=== PATIENT | female | born 1930 | race Hispanic/Latino ===

== ENCOUNTER 2016-08-15 11:36 | Inpatient (IN) | payer MEDICARE, BC ==
[2016-08-15 11:55] VITALS: BMI 21.4
[2016-08-15] MEDS ORDERED: Morphine 4 mg/ml ISec IVP STA ×2 (12:01→14:07)
--- NOTE | 2016-08-15 12:04 | ED PDOC ---
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 Patient was seen by Dr. Dutta this morning, who suggested the patient come to the emergency department for further evaluation. Patient denies any fever, cough, or other complaints at this time. PMD: Dr. Dutta Time/Duration: Other (5 days) Symptom Onset: Gradual Symptom Course: Unchanged Quality: Other (sharp) Activities at Onset: Rest Context: Home Past Medical History - Provider Review Nursing Documentation Reviewed: Yes Family/Social History - Physician Review Nursing Documentation Reviewed: Yes Family/Social History: No Known Family HX Allergies/Home Meds Allergies/Adverse Reactions: Allergies No Known Allergies Allergy (Verified 08/15/16 11:56) Home Medications: Home Meds Medication Instructions Recorded Confirmed Alprazolam [Xanax] 0.25 mg PO PRN PRN 08/15/16 08/15/16 Clopidogrel [Plavix] 75 mg PO DAILY 08/15/16 08/15/16 Ferrous Sulfate [Feosol] 325 mg PO DAILY 08/15/16 08/15/16 Losartan [Cozaar] 50 mg PO DAILY 08/15/16 08/15/16 Metoprolol Succinate [Toprol XL] 25 mg PO DAILY 08/15/16 08/15/16 Pantoprazole [Protonix] 40 mg PO DAILY 08/15/16 08/15/16 Tramadol HCl [Ultram] 50 mg PO PRN PRN 08/15/16 08/15/16 Review of Systems - Physician Review All systems were reviewed & negative as marked: Yes - Review of Systems Constitutional: absent: Fevers Respiratory: SOB. absent: Cough Musculoskeletal: Back Pain Physical Exam - Physical Exam Narrative Physical Exam (Text): Constitutional: Intermittent distress secondary to pain. Head: Normocephalic. Atraumatic. Eyes: PERRL. ENT: Moist mucous membranes. Neck: Supple. Cardiovascular: Regular rate. Chest: No tenderness. Respiratory: Bibasilar rhonchi, R worse than L. GI: Soft. Nontender. Nondistended. Back: No CVA tenderness. Reproducible pain on palpation to the right thoracic back. Musculoskeletal: No tenderness or swelling of extremities. Skin: No rash. Neurologic: Alert, no focal deficit. Vital Signs Reviewed: Yes Vital Signs Temp Pulse Resp BP Pulse Ox 08/15/16 13:43 90 20 166/68 H 98 08/15/16 11:56 98 F 98 H 20 146/80 100 Temperature: Afebrile Blood Pressure: Normal Pulse: Regular Respiratory Rate: Normal Appearance: Positive for: Well-Appearing, Non-Toxic, Comfortable Pain Distress: None Mental Status: Positive for: Alert and Oriented X 3 Medical Decision Making ED Course and Treatment: 08/15/16 11:54 Impression: A 85 year old female with shortness of breath and right thoracic pain. Differential Diagnosis include but are not limited to: ACS vs. PE Plan: -- Chest X-ray -- Labs -- Morphine -- Reassess and disposition Progress Notes: 08/15/16 12:40 CBC returned at this time with WBC 20+. Patient now triggers sepsis screening criteria. VBG with lactate added. 08/15/16 13:34 CXR shows RLL pneumonia. Ordered antibiotics and IVF. 08/15/16 13:55 Lactate 1.4, no CODE SEPSIS activation. Patient also with normal blood pressure , afebrile. Dr. Dutta accepts patient to his service on telemetry. - Lab Interpretations Lab Results: 08/15/16 12:00 08/15/16 12:00 Lab Results 08/15/16 13:00: Blood Type Confirm O POSITIVE 08/15/16 12:40: pO2 40, VBG pH 7.31 L, VBG pCO2 55.0, VBG HCO3 27.7, VBG Total CO2 29.4 H, VBG O2 Sat (Calc) 75.5 H, VBG Base Excess 0.7, VBG Potassium 4.5, Glucose 137 H, Lactate 1.4, FiO2 21.0, Sodium 136.0, Chloride 104.0, Venous Blood Potassium 4.5 08/15/16 12:00: PT 12.2 H, INR 1.13 H, APTT 29.2 08/15/16 12:00: WBC 21.4 H, RBC 3.60, Hgb 10.0 L, Hct 31.3 L, MCV 86.9, MCH 27.8 , MCHC 31.9, RDW 14.9 H, Plt Count 349, MPV 10.6, Gran % 87.1 H, Lymph % (Auto) 3.4 L, Mcdonough % (Auto) 9.2 H, Eos % (Auto) 0.0 L, Baso % (Auto) 0.3, Gran # 18.63 H, Lymph # 0.7 L, Mcdonough # 2.0 H, Eos # 0.0, Baso # 0.06 08/15/16 12:00: Blood Type O POSITIVE, Antibody Screen Negative, BBK History Checked No verified bt 08/15/16 12:00: Sodium 135, Potassium 4.1, Chloride 100, Carbon Dioxide 26, Anion Gap 13, BUN 22 H, Creatinine 1.1, Est GFR ( Amer) 57, Est GFR (Non- Af Amer) 47, Random Glucose 122 H, Calcium 9.9, Total Bilirubin 0.6, AST 27, ALT 21, Alkaline Phosphatase 100, Total Creatine Kinase 22 L, Troponin I < 0.01 , NT-Pro-B Natriuret Pep 1040 H, Total Protein 7.2, Albumin 3.9, Globulin 3.4, Albumin/Globulin Ratio 1.1 I have reviewed the lab results: Yes - RAD Interpretation Radiology Orders: 08/15/16 12:01 CHEST TWO VIEWS (PA/LAT) [RAD] Stat - Medication Orders Current Medication Orders: Discontinued Medications Levofloxacin/Dextrose (Levaquin 750mg) 750 mg in 150 mls @ 100 mls/hr IVPB STAT STA Stop: 08/15/16 14:54 Cefepime HCl (Maxipime 2gm) 2 gm in 100 mls @ 100 mls/hr IVPB STAT STA PRN Reason: Protocol Stop: 08/15/16 14:24 Last Admin: 08/15/16 14:14 Dose: 100 mls/hr Sodium Chloride (Sodium Chloride 0.9%) 1,812 mls @ 3,624 mls/hr IV .Q30M STA Stop: 08/15/16 13:55 Last Admin: 08/15/16 13:45 Dose: 3,624 mls/hr Morphine Sulfate (Morphine) 4 mg IVP STAT STA Stop: 08/15/16 12:02 Last Admin: 08/15/16 12:18 Dose: 4 mg Re-Assess: HALLIE Pain Assessment Document 08/15/16 13:18 RAMIRO (Rec: 08/15/16 14:23 SZSerina [id number]) Pain Reassessment Is this a pain reassessment? Yes Sleep Is patient sleeping during reassessment? No Presence of Pain Presence of Pain Yes Description Description Intermittent Intensity of Pain at present 5 Morphine Sulfate (Morphine) 4 mg IVP STAT STA Stop: 08/15/16 14:08 Last Admin: 08/15/16 14:15 Dose: 4 mg - Scribe Statement The provider has reviewed the documentation as recorded by the [place] Provider Scribe Attestation: All medical record entries made by the Wade[place]angelica were at my direction and personally dictated by me. I have reviewed the chart and agree that the record accurately reflects my personal performance of the history, physical exam, medical decision making, and the department course for this patient. I have also personally directed, reviewed, and agree with the discharge instructions and disposition. Disposition/Present on Arrival - Present on Arrival Any Indicators Present on Arrival: No - Disposition Have Diagnosis and Disposition been Completed?: Yes Diagnosis: Pneumonia, Leukocytosis Disposition: HOSPITALIZED Disposition Time: 13:55 Patient Plan: Admission, Telemetry Condition: GUARDED
[2016-08-15 12:20] LABS: ADD MANUAL DIFF? NO
[2016-08-15 12:34] LABS: BASO # 0.06 K/mm3 (0.0-2.0); BASO % 0.3 % (0.0-3.0); GRAN # 18.63 (1.4-6.5); GRAN % 87.1 % (50.0-68.0); HEMATOCRIT 31.3 % (36.0-48.0); LYMPH # 0.7 (1.2-3.4); LYMPH % 3.4 % (22.0-35.0); MEAN CELL VOLUME 86.9 fL (80.0-105.0); MEAN CORPUSCULAR HEMOGLOBIN 27.8 pg (25.0-35.0); MEAN CORPUSCULAR HGB CONC 31.9 g/dl (31.0-37.0); MEAN PLATELET VOLUME 10.6 fl (7.0-11.0); MONO % 9.2 % (1.0-6.0); PLATELET COUNT 349 10^3/uL (120.0-450.0); RED CELL DISTRIBUTION WIDTH 14.9 % (11.5-14.5); WHITE BLOOD COUNT 21.4 10^3/ul (4.5-11.0)
[2016-08-15 12:40] LABS: ALB/GLOB RATIO 1.1 (1.1-1.8); ALKALINE PHOSPHATASE 100 U/L (38-133); ALT/SGPT 21 U/L (7-56); AST/SGOT 27 U/L (15-39); BILIRUBIN,TOTAL 0.6 mg/dL (0.2-1.3); BLOOD UREA NITROGEN 22 mg/dL (7-21); CALCIUM 9.9 mg/dL (8.4-10.5); CARBON DIOXIDE 26 mmol/L (21-33); CHLORIDE 100 mmol/L (98-107); GFR AFRICAN-AMERICAN 57; GLUCOSE,RANDOM 122 mg/dL (70-110); POTASSIUM 4.1 mmol/L (3.6-5.0); SODIUM 135 mmol/L (132-148); TOTAL PROTEIN 7.2 g/dL (5.8-8.3)
[2016-08-15 12:47] LABS: INR 1.13 (0.93-1.08); PARTIAL THROMBOPLASTIN TIME 29.2 Seconds (23.7-30.8)
[2016-08-15 12:51] LABS: TROPONIN I < 0.01 ng/mL
[2016-08-15] MEDS ORDERED: levoFLOXacin 750 mg in D5W 750 MG/150 ML BAG IVPB STA (13:25)
[2016-08-15] MEDS ORDERED: Cefepime IV 2 gm in NS 2 GM/100 ML BAG IVPB STA (13:25)
[2016-08-15] MEDS ORDERED: SODIUM CHLORIDE 0.9% IV STA (13:26)
[2016-08-15 13:49] LABS: VENOUS BLOOD GAS BASE EXCESS 0.7 mmol/L (0.0-2.0); VENOUS BLOOD PH 7.31 (7.32-7.43)
--- NOTE | 2016-08-15 13:50 | RAD ---
HISTORY: R sided pleuritic pain, dullness COMPARISON: No prior. TECHNIQUE: Chest PA and lateral FINDINGS: LUNGS: There is a patchy infiltrate at the right lung base. PLEURA: No significant pleural effusion identified. No pneumothorax apparent. CARDIOVASCULAR: Normal. OSSEOUS STRUCTURES: No significant abnormalities. VISUALIZED UPPER ABDOMEN: Normal. OTHER FINDINGS: None. IMPRESSION: Patchy infiltrate at the right lung base
[2016-08-15] MEDS ORDERED: Pneumococcal 23-Valent Vaccine IM ONE (16:38)
[2016-08-15] MEDS ORDERED: Sodium Chloride 0.9% 1,000 ML IV SCH (18:08)
[2016-08-15] MEDS ORDERED: Albuterol-Ipratrop 3 mg / 0.5 (3 ml) UD IH SCH (18:15)
--- NOTE | 2016-08-15 21:01 | CON ---
DATE: 08/15/2016 REASON FOR CONSULTATION: Right-sided thoracic pain. HISTORY OF PRESENT ILLNESS: This is an 85-year-old female who was admitted today for pneumonia, who states that she has a 3-4 day history of some right-sided pain. She says the pain got worse over the last day or so. She denies any history of falls. She denies any numbness or tingling going down th e legs. She denies any weakness. PHYSICAL EXAMINATION: On exam of the thoracic and lumbar spine, there is no gross deformity apprecia fermin. Her skin is intact. She has some very mild right lower thoracic upper lumbar paraspinal tender ness to palpation. Neurovascularly, she is grossly intact distally. She does appear to have pain in the right upper quadrant of her abdomen. Her belly is otherwise soft and nontender. DIAGNOSTIC STUDIES: There are no thoracic or lumbar films available. On a chest x-ray, no obvious r ib fractures are appreciated. IMPRESSION: Right thoracic and right upper quadrant abdominal pain. PLAN: At this point, I am going to recommend that we get x-rays of the lumbar and thoracic spine and also recommended that we are going to speak to her medical doctor about a possible further workup fo r her right upper quadrant pain. We will follow up once the x-rays are complete. Mukul Henderson MD cc: [id number] TT: 08/15/2016 21:00:26 Confirmation # [id number] Dictation # [id number] mn
[2016-08-15] MEDS: HYDROmorphone 0.5 mg/0.5 ml ISec IVP PRN (21:43)
--- NOTE | 2016-08-16 01:34 | CARD ---
APPROVED REPORT EKG Measurement Heart [id number] <Conclusion> Sinus tachycardia Possible Left atrial enlargement Left ventricular hypertrophy Nonspecific ST abnormality Abnormal ECG
[2016-08-16 03:00] VITALS: RESP 20
[2016-08-16] MEDS: HYDROmorphone 0.5 mg/0.5 ml ISec IVP PRN ×2 (03:13→08:27)
[2016-08-16] MEDS: Pantoprazole 40 mg EC Tab PO SCH (08:27)
[2016-08-16 09:25] LABS: ADD MANUAL DIFF? NO
[2016-08-16 09:27] LABS: BASO # 0.04 K/mm3 (0.0-2.0); BASO % 0.2 % (0.0-3.0); EOS # 0.1 (0.0-0.7); EOS % 0.7 % (1.5-5.0); GRAN # 15.24 (1.4-6.5); GRAN % 87.3 % (50.0-68.0); HEMATOCRIT 28.6 % (36.0-48.0); LYMPH # 0.7 (1.2-3.4); LYMPH % 4.1 % (22.0-35.0); MEAN CELL VOLUME 86.7 fL (80.0-105.0); MEAN CORPUSCULAR HEMOGLOBIN 26.7 pg (25.0-35.0); MEAN CORPUSCULAR HGB CONC 30.8 g/dl (31.0-37.0); MEAN PLATELET VOLUME 10.3 fl (7.0-11.0); MONO # 1.3 (0.1-0.6); MONO % 7.7 % (1.0-6.0); PLATELET COUNT 303 10^3/uL (120.0-450.0); RED CELL DISTRIBUTION WIDTH 15.1 % (11.5-14.5); WHITE BLOOD COUNT 17.5 10^3/ul (4.5-11.0)
--- NOTE | 2016-08-16 09:55 | HP ---
An 85-year-old white female with a recent history of a CVA with right hemiparesis. The patient had b een doing physical therapy and occupational therapy. She has a history of carotid artery disease in the past. She had an approximately 3-4 day history of cough, sputum production, low-grade fever and severe right-sided chest pain on deep inspiration. The patient came to my office, was found to have severe right chest pain with rales at the right base, was sent to the Emergency Room because of the s evere pain, was found to have a 20,000 white count, a patchy right lower lobe infiltrate consistent w ith pneumonia and pleuritis. The patient was admitted to the hospital. PHYSICAL EXAMINATION: GENERAL: Shows a well-developed, but thin white female, in severe pain. HEENT: Essentially normal limits. HEART: Regular sinus rhythm. No S3, no murmurs. CHEST: Shows rales and rhonchi at the right base. ABDOMEN: Benign. EXTREMITIES: No cyanosis, clubbing, or edema. NEUROLOGIC: Shows a heavy right hemiparesis. The patient is alert and oriented x 3. IMPRESSION: Right lower lobe pneumonia with pleuritic chest pain, history of cerebrovascular acciden t. Dylan Dutta MD cc: [id number] TT: 08/16/2016 09:54:19 en
[2016-08-16] MEDS ORDERED: Non Formulary Medication (Ferrous Sulfate [Feosol] 325 MG) PO SCH (10:00)
[2016-08-16] MEDS: Azithromycin 250 MG in Sodium Chloride 0.9% 250 ML IVPB SCH (10:19)
[2016-08-16] MEDS: Metoprolol Succinate 25 mg XL Tab PO SCH (10:27)
[2016-08-16] MEDS: cefTRIAXone 1 gm 1 GM/100 ML BAG IVPB SCH (10:28)
[2016-08-17 07:02] LABS: ADD MANUAL DIFF? NO
[2016-08-17 07:21] LABS: ALB/GLOB RATIO 0.9 (1.1-1.8); ALKALINE PHOSPHATASE 92 U/L (38-133); ALT/SGPT 27 U/L (7-56); AST/SGOT 27 U/L (15-39); BILIRUBIN,TOTAL 0.3 mg/dL (0.2-1.3); BLOOD UREA NITROGEN 17 mg/dL (7-21); CALCIUM 8.7 mg/dL (8.4-10.5); CARBON DIOXIDE 25 mmol/L (21-33); CHLORIDE 108 mmol/L (98-107); GFR AFRICAN-AMERICAN > 60; GLUCOSE,RANDOM 88 mg/dL (70-110); POTASSIUM 5.2 mmol/L (3.6-5.0); SODIUM 137 mmol/L (132-148); TOTAL PROTEIN 5.8 g/dL (5.8-8.3)
[2016-08-17 07:48] LABS: EOS # 0.4 (0.0-0.7)
[2016-08-17] MEDS: Pantoprazole 40 mg EC Tab PO SCH (08:17)
[2016-08-17 08:52] LABS: BASO # 0.05 K/mm3 (0.0-2.0); BASO % 0.4 % (0.0-3.0); EOS % 3.1 % (1.5-5.0); GRAN # 10.41 (1.4-6.5); GRAN % 81.4 % (50.0-68.0); HEMATOCRIT 27.8 % (36.0-48.0); LYMPH # 0.9 (1.2-3.4); LYMPH % 6.7 % (22.0-35.0); MEAN CELL VOLUME 86.1 fL (80.0-105.0); MEAN CORPUSCULAR HEMOGLOBIN 26.6 pg (25.0-35.0); MEAN CORPUSCULAR HGB CONC 30.9 g/dl (31.0-37.0); MEAN PLATELET VOLUME 10.5 fl (7.0-11.0); MONO # 1.1 (0.1-0.6); MONO % 8.4 % (1.0-6.0); PLATELET COUNT 304 10^3/uL (120.0-450.0); RED CELL DISTRIBUTION WIDTH 15.3 % (11.5-14.5); WHITE BLOOD COUNT 12.8 10^3/ul (4.5-11.0)
[2016-08-17] MEDS: Azithromycin 250 MG in Sodium Chloride 0.9% 250 ML IVPB SCH (09:13)
[2016-08-17 09:16] LABS: URINE BILIRUBIN NEGATIVE (NEGATIVE); URINE BLOOD TRACE-INTACT (NEGATIVE); URINE GLUCOSE (UA) NEGATIVE (NEGATIVE); URINE KETONE NEGATIVE (NEGATIVE); URINE LEUKOCYTE ESTERASE TRACE Leu/uL (NEGATIVE); URINE PROTEIN TRACE mg/dL (<30 mg/dL); URINE UROBILINOGEN 0.2 E.U./dL (<1 E.U./dL)
[2016-08-17] MEDS: Metoprolol Succinate 25 mg XL Tab PO SCH (09:16)
[2016-08-17] MEDS: cefTRIAXone 1 gm 1 GM/100 ML BAG IVPB SCH (09:17)
[2016-08-17] MEDS ORDERED: Iohexol 350 MG/100 ML VIAL ONE (09:18)
[2016-08-17 09:27] LABS: URINE APPEARANCE CLEAR (CLEAR); URINE COLOR YELLOW (YELLOW)
--- NOTE | 2016-08-17 09:34 | PN ---
DATE: 08/17/2016 An 85-year-old white female admitted with severe right pleuritic chest pain, right lower lobe infiltr ate. Also the patient has dropped her hemoglobin from 10 to 8.6. She is afebrile. Vital signs are stable. She is receiving morphine and ____. ____ will be held because of the drop in hemoglobin. S tool occult blood will be done. B12, folic acid, iron, TIBC will be redone. Repeat CBC. The patien t is on IV antibiotics. She does have anterior and posterior rales. She will be sent down for a CT of the chest to rule out pleuritis and rule out lymphangitic involvement. PHYSICAL EXAMINATION: VITAL SIGNS: Stable. GENERAL: The patient had a rough night, but is more comfortable this morning, found sleeping in her bed, tolerating her diet well. HEART: Regular sinus rhythm. IMPRESSION: Pneumonia, pleuritis, rule out other etiologies, drop in hemoglobin. Rule out occult bl ood loss versus hemolysis versus ____. Dylan Dutta MD cc: [id number] TT: 08/17/2016 09:33:20 Confirmation # [id number] Dictation # [id number] jn
[2016-08-17 09:41] LABS: URINE BACTERIA FEW (NEG)
[2016-08-17 11:05] LABS: IRON < 10 ug/dL (45-180)
--- NOTE | 2016-08-17 12:12 | CT ---
PROCEDURE: HISTORY: pleuritis COMPARISON: None TECHNIQUE: FINDINGS: There is a small to moderate right pleural effusion. Fair are diffuse centrilobular emphysematous changes with irregular parenchymal opacities along the right upper lobe possibly representing rounded atelectasis and/or pneumonia. Similar changes are noted at the right base. There is fullness of the right infrahilar structures which may reflect adenopathy versus vascular structures. The proximal tracheobronchial tree is patent. There is no significant mediastinal lymphadenopathy. Extensive atherosclerotic disease of the aorta is observed. The proximal tracheobronchial tree is patent. Six there is no pericardial effusion. The upper abdomen is grossly unremarkable. IMPRESSION: Right pleural effusion with patchy subpleural opacities possibly representing round atelectasis and/or pneumonia in the right upper lobe and right lower lobe.
[2016-08-17] MEDS ORDERED: Albuterol-Ipratrop 3 mg / 0.5 (3 ml) UD IH PRN (14:43)
[2016-08-17] MEDS ORDERED: guaiFENesin DM 100 mg-10 mg/5 ml UD PO PRN (14:44)
--- NOTE | 2016-08-17 15:50 | CON ---
DATE: 08/17/2016 REQUESTING PHYSICIAN: Dr. Dutta CHIEF COMPLAINT: The patient presented with right-sided pleuritic chest pain, shortness of breath fo r about 5 days prior to coming to Dr. Dutta's office. HISTORY OF PRESENT ILLNESS: The patient is an 85-year-old female with a history of CVA, anemia, hype rtension, GERD, anxiety that presented to Dr. Dutta's office with complaints of pleuritic chest p ain on the right side and shortness of breath with weakness over about 5 days. The patient, in the E R, was noted to have right-sided pneumonia and CAT scan revealed right upper lobe, right lower lobe p neumonia with right-sided pleural effusion. She also has some mediastinal lymphadenopathy. The sommer ent at this time is on O2 via nasal cannula. Complaints of pleuritic chest pain on the right with mo vement or cough and states that she had a CVA and the right side is still weak and since that CVA, sh e has had some discomfort on that side. She has no complaints and no recent history of upper respira tory tract infection, no history of asthma, bronchitis or pneumonia in the past. She has no complain ts of shortness of breath at this time. No increased cough or congestion. PAST MEDICAL HISTORY: As above. ALLERGIES: She has no known allergies. CURRENT MEDICATIONS: Can be evaluated as per the nurse's intake form. SOCIAL HISTORY: No history of smoking or ETOH abuse. FAMILY HISTORY: Noncontributory. REVIEW OF SYSTEMS: CONSTITUTIONAL: All negative. HEENT: All negative. CARDIOVASCULAR: The patient does have the chest pain, but it is pleuritic on the right. RESPIRATORY: She had some shortness of breath, occasional cough. No wheezing or congestion. GASTROINTESTINAL: All negative. GENITOURINARY: All negative. MUSCULOSKELETAL: All negative except for back pain. NEUROPSYCHIATRIC: All negative. HEMATOLOGIC: All negative. IMMUNOLOGIC: All negative. ENDOCRINE: All negative. INTEGRITY: All negative. PHYSICAL EXAMINATION: VITAL SIGNS: Her temperature is 98.6, her pulse is 81, respirations are 90, and BP is 132/70. SKIN: Warm and dry. HEAD: Atraumatic, normocephalic. EYES: Reactive to light. EARS, NOSE AND THROAT: Seem to be within normal limits. NECK: Supple, no JVD, no thyroid enlargement, no lymph nodes. HEART: Has a regular rate and rhythm. Normal S1, S2. LUNGS: Reveal mild decreased breath sounds at the right base with occasional rhonchi. ABDOMEN: Soft, nontender, normal bowel sounds. No organomegaly noted. GENITALIA AND RECTAL: Deferred. MUSCULOSKELETAL: No joint deformities. EXTREMITIES: Reveal no significant edema in the lower extremities. NEUROLOGIC: The patient has weakness in the right side upper and lower extremity. LABORATORIES: Reveal a white count of 12.8, hemoglobin of 8.6, hematocrit 27.8 with platelets of 304 ,000. Her sodium is 137, potassium 5.2, chloride 108, CO2 of 25 with a BUN of 17, creatinine of 0.8, glucose of 88 and her BNP is 2000. As far as her CT scan of the chest, it reveals that there is a small to moderate right-sided pleural effusion and patchy subpleural opacities, possibly representing a round atelectasis and/or pneumonia in the right upper and right lower lobes. IMPRESSION: This patient has a right upper lobe, right lower lobe pneumonia. She has a right-sided pleural effusion as well. She has a history of chronic obstructive pulmonary disease as well as hype rtension, gastroesophageal reflux disease as well as anxiety. The patient has a history of cerebrova scular accident with right-sided weakness and is noted at this time to have anemia as well as pleurit ic chest pain. PLAN: We will continue with aggressive pulmonary toilet. The patient is on O2 via nasal cannula and O2 saturations are 97%. She is getting Dilaudid for pain meds and is on Plavix as well. The patien t is getting Zithromax and Rocephin as an antibiotic. I will start Robitussin for cough p.r.n. and b ronchodilators of DuoNeb. We will follow her chest x-ray and continue with aggressive pulmonary toil et and follow closely and treat aggressively along with the other consultants and the primary care do ctor. Braden Calvin MD cc: [id number] TT: 08/17/2016 15:50:08 Confirmation # [id number] Dictation # [id number] en
[2016-08-17] MEDS: HYDROmorphone 0.5 mg/0.5 ml ISec IVP PRN ×2 (18:26→23:11)
[2016-08-18] MEDS: HYDROmorphone 0.5 mg/0.5 ml ISec IVP PRN ×2 (02:21→12:52)
[2016-08-18 07:52] VITALS: TEMP 98.8; O2SAT 97
[2016-08-18 08:12] LABS: ADD MANUAL DIFF? NO
[2016-08-18 08:18] LABS: BASO # 0.06 K/mm3 (0.0-2.0); BASO % 0.5 % (0.0-3.0); EOS # 0.5 (0.0-0.7); EOS % 3.6 % (1.5-5.0); GRAN # 11.08 (1.4-6.5); HEMATOCRIT 28.8 % (36.0-48.0); LYMPH # 0.6 (1.2-3.4); LYMPH % 4.3 % (22.0-35.0); MEAN CELL VOLUME 86.2 fL (80.0-105.0); MEAN CORPUSCULAR HEMOGLOBIN 26.3 pg (25.0-35.0); MEAN CORPUSCULAR HGB CONC 30.6 g/dl (31.0-37.0); MEAN PLATELET VOLUME 10.4 fl (7.0-11.0); MONO # 0.9 (0.1-0.6); MONO % 6.6 % (1.0-6.0); PLATELET COUNT 361 10^3/uL (120.0-450.0); RED CELL DISTRIBUTION WIDTH 15.6 % (11.5-14.5)
[2016-08-18] MEDS: Pantoprazole 40 mg EC Tab PO SCH (08:30)
[2016-08-18 08:32] LABS: ALKALINE PHOSPHATASE 100 U/L (38-133); ALT/SGPT 27 U/L (7-56); AST/SGOT 23 U/L (15-39); BILIRUBIN,TOTAL 0.3 mg/dL (0.2-1.3); BLOOD UREA NITROGEN 20 mg/dL (7-21); CALCIUM 9.1 mg/dL (8.4-10.5); CARBON DIOXIDE 28 mmol/L (21-33); CHLORIDE 107 mmol/L (98-107); GFR AFRICAN-AMERICAN > 60; GLUCOSE,RANDOM 97 mg/dL (70-110); POTASSIUM 4.7 mmol/L (3.6-5.0); SODIUM 140 mmol/L (132-148)
[2016-08-18] MEDS: cefTRIAXone 1 gm 1 GM/100 ML BAG IVPB SCH (09:34)
[2016-08-18] MEDS: Metoprolol Succinate 25 mg XL Tab PO SCH (09:34)
[2016-08-18] MEDS: Azithromycin 250 MG in Sodium Chloride 0.9% 250 ML IVPB SCH (09:35)
--- NOTE | 2016-08-18 10:01 | PN ---
DATE: 08/18/2016 An 85-year-old white female status post CVA. Admitted to the hospital with right pleuritic chest west n, was found to have right lower lobe pneumonia with right pleural effusion and pleuritis. The patie nt recently had a CAT scan and also laboratory data had been . Her hemoglobin had dropped to 8. 6. It is up to 8.8. She does have an elevated BNP of 2000. She is off IV diuretics. She is on aft erload reduction and beta lottie therapy. She is on Plavix because of her history of recent CVA. S he is afebrile today. Vital signs are stable. She is less painful. We had taken her off nons teroidal anti-inflammatories because of the drop in her hemoglobin. She is on morphine and occasiona l doses of Toradol p.r.n. PHYSICAL EXAMINATION: CHEST: Shows decreased anterior rales. She still has decreased breath sounds and rhonchi at the rig ht base. VITAL SIGNS: She is afebrile. Vital signs are stable. PLAN: To continue pain medication, IV antibiotics, bronchodilators and p.r.n. Toradol if needed. Dylan Dutta MD cc: [id number] TT: 08/18/2016 10:01:22 Confirmation # [id number] Dictation # [id number] en
[2016-08-18] MEDS ORDERED: Metoprolol Succinate 25 mg XL Tab PO STA (17:05)
[2016-08-18 17:34] VITALS: BP 186/77; PULSE 72
--- NOTE | 2016-08-18 19:10 | CON ---
DATE: 08/18/2016 LOG RIDER NOTE SUBJECTIVE: The patient is resting in bed, lying flat with room air and no complaints of increased s hortness of breath. Still has some pleuritic right-sided chest pain, but it has improved greatly. N o fever, chills. No nausea, vomiting, no diarrhea, no abdominal pain. PHYSICAL EXAMINATION: VITAL SIGNS: Her temperature is 98.8, pulse is 95, respirations are 20, and BP is 141/82. SKIN: Warm and dry. HEAD: Atraumatic, normocephalic. EYES: Reactive to light. EARS, NOSE AND THROAT: Seem to be within normal limits. NECK: Supple, no JVD, no thyroid enlargement, no lymph nodes. HEART: Has regular rate and rhythm. Normal S1, S2. LUNGS: Reveal mild decreased breath sounds at the bases. ABDOMEN: Soft, nontender, normal bowel sounds. No organomegaly noted. GENITALIA AND RECTAL: Deferred. MUSCULOSKELETAL: No joint deformities. EXTREMITIES: Reveal trace lower extremity edema. NEUROLOGIC: She seemed to be grossly intact. LABORATORY DATA: Her white count is 13.0, hemoglobin is 8.8, hematocrit 28.8 with platelets of 361,0 00. Her sodium is 140, potassium 4.7, her chloride 107, CO2 of 28, anion gap is 10, and her glucose is 97. IMPRESSION: This patient has a right upper lobe and right lower lobe pneumonia. She has a right-dorene ed pleuritic chest pain as well. She has a history of chronic obstructive pulmonary disease, hyperte nsion, gastrointestinal reflux. The patient also has had a cerebrovascular accident in the past with right-sided weakness and has anemia. PLAN: We will continue with aggressive pulmonary toilet, continue with O2 via nasal cannula and foll ow the saturations. We will start Plavix as well and Zithromax along as Rocephin for antibiotics. T he patient is on Robitussin-DM and she has bronchiectasis and bronchitis. Braden Calvin MD cc: [id number] TT: 08/18/2016 19:09:00 Confirmation # [id number] Dictation # [id number] peterson
[2016-08-19] MEDS ORDERED: Metoprolol Succinate 50 mg XL Tab PO SCH (10:00)
--- NOTE | 2016-08-19 10:31 | DS ---
The patient discharged on 08/18/2016. She was admitted with severe right pleuritic chest pain, found t o have right lower lobe pneumonia. The patient has a history of CVA and hypertension in the past, hi story of peripheral vascular disease and carotid stenosis in the past. The patient was treated with IV antibiotics and pain medication and some anti-inflammatory. She was also treated for hypertension . Eventually, the patient started some physical therapy and occupational therapy, was transferred to TCU for continued IV antibiotics and physical therapy. FINAL DISCHARGE DIAGNOSES: Right lower lobe pneumonia, parapneumonic effusion and right pleuritis, h ypertension, coronary artery disease, history of cerebrovascular accident and history of carotid sonny ry stenosis. Dylan Dutta MD cc: [id number] TT: 08/19/2016 10:30:48 ulysses
== END 2016-08-18 19:23 | DRG 190 ==
LOC: ED 11:36 → ERH 14:09 → 2RNO 18:06 → 5RNO 08-16 18:02
PROVIDERS: ADMIT Internal Medicine; ATTEND Internal Medicine
DX: J44.0 Chronic obstructive pulmonary disease with (acute) lower respiratory infection (principal); J18.9 Pneumonia, unspecified organism; J90 Pleural effusion, not elsewhere classified; I69.351 Hemiplegia and hemiparesis following cerebral infarction affecting right dominant side; D64.9 Anemia, unspecified; I25.10 Atherosclerotic heart disease of native coronary artery without angina pectoris; I10 Essential (primary) hypertension; K21.9 Gastro-esophageal reflux disease without esophagitis; F41.9 Anxiety disorder, unspecified

== ENCOUNTER 2016-08-18 19:23 | Inpatient (IN) | payer OTHER, BC ==
[2016-08-18 19:49] VITALS: BMI 20.3
[2016-08-18] MEDS ORDERED: guaiFENesin DM 100 mg-10 mg/5 ml UD PO PRN (19:54)
[2016-08-18] MEDS ORDERED: Albuterol-Ipratrop 3 mg / 0.5 (3 ml) UD IH PRN (19:54)
[2016-08-18] MEDS: HYDROmorphone 0.5 mg/0.5 ml ISec IVP PRN (23:37)
[2016-08-19] MEDS: cefTRIAXone 1 gm 1 GM/100 ML BAG IVPB SCH (05:19)
[2016-08-19] MEDS ORDERED: Pantoprazole 40 mg EC Tab PO SCH (06:00)
[2016-08-19] MEDS: Pantoprazole 40 mg EC Tab PO SCH (06:05)
[2016-08-19] MEDS: Azithromycin 250 MG in Sodium Chloride 0.9% 250 ML IVPB SCH (06:06)
[2016-08-19] MEDS ORDERED: Metoprolol Succinate 25 mg XL Tab PO SCH (10:00)
[2016-08-19] MEDS ORDERED: Metoprolol Succinate 50 mg XL Tab PO SCH (10:00)
[2016-08-19] MEDS ORDERED: FERROUS SULFATE 324 MG PO SCH (10:00)
--- NOTE | 2016-08-19 10:13 | PN ---
DATE: 08/19/2016 An 85-year-old white female admitted to the hospital with pleuritis, hypertension, history of CVA, ri ght lower lobe pneumonia, pleuritic chest pain. The patient is doing well. Vital signs are stable. She continues to have some discomfort. She still has rales anterior and posterior at the right base . She is using less pain medication. Plan is to continue IV antibiotics, continue pain medication a nd antiinflammatories and to repeat her x-ray in the morning. Dylan Dutta MD cc: [id number] TT: 08/19/2016 10:12:19 Confirmation # [id number] Dictation # [id number] ulysses
[2016-08-19] MEDS: Naproxen 550 mg Tab PO SCH (18:47)
[2016-08-19] MEDS: HYDROmorphone 0.5 mg/0.5 ml ISec IVP PRN (22:04)
[2016-08-20] MEDS: Metoprolol Succinate 50 mg XL Tab PO SCH ×2 (05:29→09:27)
[2016-08-20] MEDS: Pantoprazole 40 mg EC Tab PO SCH (05:34)
[2016-08-20] MEDS: cefTRIAXone 1 gm 1 GM/100 ML BAG IVPB SCH (08:00)
[2016-08-20] MEDS: Azithromycin 250 MG in Sodium Chloride 0.9% 250 ML IVPB SCH (08:00)
--- NOTE | 2016-08-20 10:15 | PN ---
DATE: 08/20/2016 SUBJECTIVE: The patient is resting in bed, states that she is slowly improving with the respiratory status. She is comfortable with O2 via nasal cannula at 2 liters and no increased cough or congestio n. The patient states that she still has some mild chest pain on the right side when she moves or ta kes a deep breath, but that pain is improving. No fever or chills. No nausea or vomiting. No abdom inal pain. No diarrhea. PHYSICAL EXAMINATION: VITAL SIGNS: Stable. HEENT: Within normal limits. LUNGS: Reveal mild decreased breath sounds at the right base. HEART: Has a regular rate and rhythm. Normal S1, S2. ABDOMEN: Soft, nontender, normal bowel sounds. GENITALIA AND RECTAL: Deferred. MUSCULOSKELETAL: No joint deformities. EXTREMITIES: Reveal trace lower extremity edema. NEUROLOGIC: She has weakness on the right side. IMPRESSION: The patient has right lower lobe pneumonia with pleuritic chest pain, history of cerebro vascular accident and right-sided weakness. PLAN: We will continue with O2 via nasal cannula. Continue with aggressive pulmonary toilet. The p atient is on IV antibiotics as well as bronchodilators and anti-inflammatories, and we will follow up with a repeat chest x-ray in the morning. Braden Calvin MD cc: [id number] TT: 08/20/2016 10:15:07 Confirmation # [id number] Dictation # [id number] cristhian
--- NOTE | 2016-08-20 10:25 | PN ---
DATE: 08/20/2016 The patient is an 85-year-old female with history of CVA, history of peripheral vascular disease, cor onary artery disease, admitted to the hospital with right pleuritic chest pain, right lower lobe pneu monia, pleural effusion. The patient is improving steadily, does have hypertension. Blood pressure is better controlled at _ ___. The patient is on IV antibiotics, and nonsteroidal anti-inflammatories. The case was discu ssed with Dr. Calvin this morning. She will have a repeat chest x-ray to rule out further fluid to rule out the need for a possible thoracentesis. However, as along as the patient is improving, we will c ontinue physical therapy and occupational therapy, IV antibiotics, and nonsteroidal anti-inflammatori es. Dylan Dutta MD cc: [id number] TT: 08/20/2016 10:25:18 Confirmation # [id number] Dictation # [id number] jn
[2016-08-20] MEDS: Naproxen 550 mg Tab PO SCH (11:00)
--- NOTE | 2016-08-20 11:11 | CP.PCM.PN ---
Subjective - Date & Time of Evaluation Date of Evaluation: 08/20/16 Time of Evaluation: 11:10 - Subjective Subjective: pt needs angiocath insertion. Objective - Vital Signs/Intake and Output Vital Signs (last 24 hours): Temp Pulse Resp BP Pulse Ox 98.6 F 86 20 179/71 H 97 08/19/16 09:52 08/20/16 09:23 08/19/16 09:52 08/20/16 09:23 08/19/16 09:52 - Medications Medications: Current Medications Albuterol/Ipratropium (Duoneb 3 Mg/0.5 Mg (3 Ml) Ud) 3 ml IH [id number] PRN PRN Reason: Shortness of Breath Alprazolam (Xanax) 0.25 mg PO BID PRN; Protocol PRN Reason: Anxiety Stop: 08/25/16 19:50 Clopidogrel Bisulfate (Plavix) 75 mg PO DAILY [facility] Last Admin: 08/20/16 09:24 Dose: 75 mg Ferrous Sulfate (Feosol) 324 mg PO DAILY [facility] Last Admin: 08/20/16 09:24 Dose: 324 mg Guaifenesin/Dextromethorphan (Robitussin Dm) 5 ml PO Q4H PRN PRN Reason: Cough Hydromorphone HCl (Dilaudid) 0.5 mg IVP Q4H PRN PRN Reason: severe pain 8-10 Last Admin: 08/19/16 22:04 Dose: 0.5 mg Ceftriaxone Sodium (Rocephin 1 Gram Ivpb) 1 gm in 100 mls @ 100 mls/hr IVPB 0600 [facility] PRN Reason: Protocol Last Admin: 08/20/16 08:00 Dose: 100 mls/hr Azithromycin 250 mg/ Sodium (Chloride) 250 mls @ 167 mls/hr IVPB 0630 [facility] PRN Reason: Protocol Last Admin: 08/20/16 08:00 Dose: 167 mls/hr Losartan Potassium (Cozaar) 50 mg PO BID [facility] Last Admin: 08/20/16 09:23 Dose: 50 mg Metoprolol Succinate (Toprol Xl) 50 mg PO BRK [facility] Last Admin: 08/20/16 09:27 Dose: Not Given Naproxen (Anaprox Ds) 550 mg PO BID [facility] Last Admin: 08/19/16 18:47 Dose: Not Given Pantoprazole Sodium (Protonix Ec Tab) 40 mg PO 0600 [facility] Last Admin: 08/20/16 05:34 Dose: 40 mg Assessment and Plan - Assessment and Plan (Free Text) Assessment: 20 guage angiocath inserted in rt ankle area.
[2016-08-20] MEDS: HYDROmorphone 0.5 mg/0.5 ml ISec IVP PRN ×2 (15:12→19:57)
[2016-08-21] MEDS: HYDROmorphone 0.5 mg/0.5 ml ISec IVP PRN ×2 (00:29→05:47)
[2016-08-21] MEDS: Pantoprazole 40 mg EC Tab PO SCH (05:49)
[2016-08-21] MEDS: Azithromycin 250 MG in Sodium Chloride 0.9% 250 ML IVPB SCH (05:52)
[2016-08-21] MEDS: cefTRIAXone 1 gm 1 GM/100 ML BAG IVPB SCH (05:52)
[2016-08-21] MEDS: Metoprolol Succinate 50 mg XL Tab PO SCH (08:29)
--- NOTE | 2016-08-21 09:46 | PN ---
DATE: 08/21/2016 An 85-year-old white female admitted to the hospital with right pleuritic chest pain, evidence of pne umonia. The patient had a repeat CT yesterday to look at the progress of her pleural effusion and pn eumonia. She was found on CT to have a pulmonary embolism detected by Dr. Wayne Sheppard ____ started o ff Plavix, which she had been on, and started on Eliquis 5 mg b.i.d. The patient ____ seems to be unchanged today. She still has some pleuritic chest pain. She still mtz s some anterior and posterior rales, but decreased. PHYSICAL EXAMINATION: VITAL SIGNS: She is afebrile. Vital signs are stable. Blood pressure is 148/70. Pulse is 81. Tem perature is 98.6. PLAN: Is to continue her antibiotics and continue her blood pressure medication and her apixaban. Case was discussed with the sister as far as discharge home some time during this week. Dylan Dutta MD cc: [phone] TT: 08/21/2016 09:45:48 Confirmation # [id number] Dictation # [id number] jn
--- NOTE | 2016-08-21 20:36 | PN ---
DATE: 08/21/2016 SUBJECTIVE: The patient is resting in bed with O2 via nasal cannula, continues to state that when bryan dominguez exerts herself when she is getting up and walking around, she does get more short of breath going b ack and forth to the bathroom. The patient also states that she has lost her appetite and did not ea t very much today, but she promises to eat some of the food left over from her dinner later. She had an episode of vomiting earlier today. No abdominal pain. No fever, chills, no diarrhea and no ches t pain. The patient has no significant cough or wheezing. No significant congestion. PHYSICAL EXAMINATION: VITAL SIGNS: She has a temperature of 98.6, her pulse is 92, respirations are 20, and BP is 156/68, O2 sat is 97% on room air. HEENT: Head is atraumatic, normocephalic. Eyes reactive to light. Ears, nose and throat seemed to be within normal limits. NECK: Supple. No JVD, no thyroid enlargement, no lymph nodes. CARDIOVASCULAR: Heart has a regular rate and rhythm. Normal S1, S2. LUNGS: Reveal good breath sounds bilaterally. ABDOMEN: Soft. Normal bowel sounds. No organomegaly noted. GENITALIA AND RECTAL: Deferred. MUSCULOSKELETAL: No joint deformities. EXTREMITIES: Reveal trace lower extremity edema. NEUROLOGIC: She does have weakness on the right side. LABORATORY DATA: As far as CT scan of the chest, it reveals that there is a pulmonary embolus. IMPRESSION: The patient has saddle pulmonary embolus, but official report is not on the chart as of yet. The patient also is noted to have a right lower lobe pneumonia with pleuritic chest pain and hi story of cerebrovascular accident and right-sided weakness. PLAN: We will continue with O2 via nasal cannula. Continue with aggressive pulmonary toilet. The p atient is on IV antibiotics and bronchodilators as well as anti-inflammatories. She has been started on Eliquis and we will get Dopplers of the lower extremities. We will assess and consider the need for IVC filter. I will continue to treat aggressively along with the other consultants and the [facility] doctor. Braden Calvin MD cc: [id number] TT: 08/21/2016 20:35:44 Confirmation # [id number] Dictation # [id number] jn
[2016-08-22] MEDS: Pantoprazole 40 mg EC Tab PO SCH (05:22)
[2016-08-22 07:37] VITALS: RESP 18; O2SAT 100
[2016-08-22] MEDS: Metoprolol Succinate 50 mg XL Tab PO SCH (08:33)
--- NOTE | 2016-08-22 09:59 | CP.PCM.CON ---
<Migdalia Turcios - Last Filed: 08/22/16 13:09> History of Present Illness - History of Present Illness History of Present Illness: Surgery: Dr. 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 Patient is aware of pulmonary embolism as well as DVT in legs bilaterally. Patient currently only complains of coughing and sneezing which is new. She does report some right sided chest pain with coughing. She states the cough is dry, nonproductive. During interview patient continues to request a consult with a Dr. Livingston, who she has seen in the past for GI bleeding. She denies any pain to the lower extremities of swelling of her legs. Per nursing, patient remains on 2Lt NC and has been saturating 100% w/o evidence of respiratory distress. PMH: CVA, GI bleed, PVD s/p stent on the Left, HTN, HLD, Pneumonia PSH: endovascular stent placement LLE, endoscopy 2/2 GI bleed w/ clip placement Social: lives with sister who is primary critical care nurse Review of Systems - Constitutional Constitutional: absent: Anorexia, Chills, Fever - EENT Eyes: absent: Change in Vision Ears: absent: Dizziness Nose/Mouth/Throat: Nasal Congestion - Cardiovascular Cardiovascular: absent: Diaphoresis, Dyspnea - Respiratory Respiratory: Cough, Pain with Coughing. absent: Wheezing - Gastrointestinal Gastrointestinal: absent: Abdominal Pain, Constipation - Neurological Neurological: absent: Dizziness - Psychiatric Psychiatric: Anxiety. absent: Depression - Endocrine Endocrine: absent: Polydipsia, Polyphagia - Hematologic/Lymphatic Hematologic: absent: Easy Bleeding, Easy Bruising Past Patient History - Past Social History Smoking Status: Never Smoked - CARDIAC Hx Hypertension: Yes - PULMONARY Hx Respiratory Disorders: No - NEUROLOGICAL HX Cerebrovascular Accident: Yes (R sided weakness) - HEENT Hx HEENT Problems: Yes ([place] uses b/l hearing aids which are home) Hx Cataracts: Yes (b/l sx) - HEMATOLOGICAL/ONCOLOGICAL Hx Anemia: Yes Other/Comment: left outer calf 0.7cm x 0.6cm dry brown lesion precancerous as per pt bx done - INTEGUMENTARY Hx Basil Cell: (uncertain) Other/Comment: left outer calf 0.7cm x 0.6cm dry brown lesion, was bx'd as per pt and is precancerous, skin tags and age spots to back, left upper arm light and dark red area of skin 1cm x 1cm pt stated "it comes and goes". - MUSCULOSKELETAL/RHEUMATOLOGICAL Hx Falls: No - GASTROINTESTINAL Hx Gastrointestinal Disorders: Yes Hx Gastroesophageal Reflux: Yes - GENITOURINARY/GYNECOLOGICAL Hx Incontinence: Yes - PSYCHIATRIC Hx Psychophysiologic Disorder: Yes Hx Anxiety: Yes - SURGICAL HISTORY Hx Surgeries: Yes - ANESTHESIA Hx Anesthesia: Yes Hx Anesthesia Reactions: No Hx Malignant Hyperthermia: No Meds Allergies/Adverse Reactions: Allergies Allergy/AdvReac Type Severity Reaction Status Date / Time No Known Allergies Allergy Verified 08/18/16 19:48 - Medications Medications: Current Medications Albuterol/Ipratropium (Duoneb 3 Mg/0.5 Mg (3 Ml) Ud) 3 ml IH [id number] PRN PRN Reason: Shortness of Breath Alprazolam (Xanax) 0.25 mg PO BID PRN; Protocol PRN Reason: Anxiety Stop: 08/25/16 19:50 Last Admin: 08/22/16 01:12 Dose: 0.25 mg Apixaban (Eliquis) 5 mg PO BID [facility] PRN Reason: Protocol Azithromycin (Zithromax) 250 mg PO DAILY [facility] PRN Reason: Protocol Last Admin: 08/21/16 10:47 Dose: 250 mg Guaifenesin/Dextromethorphan (Robitussin Dm) 5 ml PO Q4H PRN PRN Reason: Cough Losartan Potassium (Cozaar) 50 mg PO BID [facility] Last Admin: 08/21/16 17:53 Dose: 50 mg Metoprolol Succinate (Toprol Xl) 50 mg PO BRK [facility] Last Admin: 08/22/16 08:33 Dose: 50 mg Ondansetron HCl (Zofran Tab) 4 mg PO Q8H PRN PRN Reason: Nausea/Vomiting Pantoprazole Sodium (Protonix Ec Tab) 40 mg PO 0600 [facility] Last Admin: 08/22/16 05:22 Dose: 40 mg Physical Exam - Constitutional Appears: Non-toxic, No Acute Distress, Chronically Ill - Head Exam Head Exam: ATRAUMATIC, NORMOCEPHALIC - Eye Exam Eye Exam: EOMI - ENT Exam ENT Exam: Mucous Membranes Moist - Respiratory Exam Respiratory Exam: Rhonchi, NORMAL BREATHING PATTERN. absent: Accessory Muscle Use, Decreased Breath Sounds, Respiratory Distress - Cardiovascular Exam Cardiovascular Exam: REGULAR RHYTHM. absent: Tachycardia - Extremities Exam Extremities exam: Negative for: tenderness - Neurological Exam Neurological exam: Alert - Psychiatric Exam Psychiatric exam: Agitated - Skin Skin Exam: Dry, Normal Color, Warm Results - Vital Signs Recent Vital Signs: Last Vital Signs Temp 97.9 F 08/22/16 06:00 Pulse 84 08/22/16 08:33 Resp 18 08/22/16 06:00 BP 159/66 H 08/22/16 08:33 Pulse Ox 100 08/22/16 06:00 Assessment & Plan - Assessment and Plan (Free Text) Assessment: 85 y/o female w/ saddle PE and DVT B/L Plan: -needs echo -2/2 prior GI bleed will refrain from heparin drip, cont elliquis per primary -f/u LE u/s -most likely need IVC filter -monitor for acute respiratory worsening -further recs per Dr. Deleon AKite PGY1 <Elio Deleon - Last Filed: 08/23/16 08:00> Meds - Medications Medications: Current Medications Albuterol/Ipratropium (Duoneb 3 Mg/0.5 Mg (3 Ml) Ud) 3 ml IH [id number] PRN PRN Reason: Shortness of Breath Alprazolam (Xanax) 0.25 mg PO BID PRN; Protocol PRN Reason: Anxiety Stop: 08/25/16 19:50 Last Admin: 08/22/16 23:10 Dose: 0.25 mg Apixaban (Eliquis) 5 mg PO BID [facility] PRN Reason: Protocol Last Admin: 08/22/16 17:44 Dose: 5 mg Azithromycin (Zithromax) 250 mg PO DAILY [facility] PRN Reason: Protocol Last Admin: 08/22/16 11:12 Dose: 250 mg Guaifenesin/Dextromethorphan (Robitussin Dm) 5 ml PO Q4H PRN PRN Reason: Cough Losartan Potassium (Cozaar) 50 mg PO BID [facility] Last Admin: 08/22/16 11:11 Dose: 50 mg Metoprolol Succinate (Toprol Xl) 50 mg PO BRK [facility] Last Admin: 08/22/16 08:33 Dose: 50 mg Ondansetron HCl (Zofran Tab) 4 mg PO Q8H PRN PRN Reason: Nausea/Vomiting Pantoprazole Sodium (Protonix Ec Tab) 40 mg PO 0600 [facility] Last Admin: 08/23/16 06:00 Dose: 40 mg Results - Vital Signs Recent Vital Signs: Last Vital Signs Temp 98.1 F 08/22/16 10:00 Pulse 82 08/23/16 05:06 Resp 18 08/22/16 10:00 BP 150/71 08/23/16 05:06 Pulse Ox 100 08/22/16 10:00 - Labs Labs: Laboratory Results - last 24 hr 08/23/16 04:44 POC Glucose (mg/dL) 120 H Assessment & Plan - Assessment and Plan (Free Text) Plan: Patient seen and examined by me. I agree with patients assessment and plan as per resident's note except will continue on Elliquis for now and hold off with IVC filter placement unless patient can not tolerate anticoagulation. - Date & Time Date: 08/22/16 Time: 16:00
[2016-08-22 11:21] VITALS: BP 150/71; PULSE 82; TEMP 98.1
--- NOTE | 2016-08-22 13:53 | US ---
HISTORY: Pulmonary embolus. Evaluate for DVT. PHYSICIAN(S): Wayne Sheppard MD. TECHNIQUE: Duplex sonography and color-flow Doppler with graded compression were used to evaluate the deep venous systems of both lower extremities. FINDINGS: There is extensive, acute, occlusive thrombus in the femoral veins, popliteal veins, and visualized tibial veins bilaterally. The common femoral veins are patent and compressible bilaterally. IMPRESSION: Extensive bilateral acute DVT in the femoral veins, popliteal veins, and visualized tibial veins bilaterally.
--- NOTE | 2016-08-22 13:54 | US ---
PROCEDURE: 1. Duplex ultrasound of the abdominal aorta. HISTORY: Abdominal aortic aneurysm. PHYSICIAN(S): Wayne Sheppard MD. FINDINGS: There is diffuse atherosclerotic disease of the visualized abdominal aorta. There is no sonographic evidence of abdominal aortic aneurysm. The visualized abdominal aorta measures 2.1 cm in greatest transverse dimension. The visualized common iliac arteries are normal in caliber. IMPRESSION: 1. No sonographic evidence of an abdominal aortic aneurysm. 2. Diffuse atherosclerotic disease of the visualized abdominal aorta
--- NOTE | 2016-08-22 14:50 | CON ---
DATE: 08/22/2016 CHIEF COMPLAINT/HISTORY OF PRESENT ILLNESS: This is an 85-year-old white female who was admitted with a presumptive diagnosis of pneumonia. 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 She has been in rehabilitation. She is walking. She presented to the Emergency Room with a 3-4 day history of cough and pleuritic right-sided chest pain. Her chest x-ray revealed a right middle and lower lobe consolidation with a presumptive diagnosis of pneumonia. Subsequently, a chest CT revealed a saddle pulmonary embolus. She has been hemodynamically stable. Her right ventricle is not dilated on the CT scan. She denies any leg swelling or pain. A post-admission venous ultrasound reveals extensive femoral, popliteal and tibial DVT bilaterally. This patient's history is significant for gastrointestinal bleeding/gastric malformations which have been treated endoscopically. Currently, her H and H has been approximately 1030. The patient has been started on Eliquis 5 mg p.o. b.i.d. She was not initiated on the 10 mg dose given her history for GI bleeding. She is hemodynamically stable in TRCU, sitting up and talking in complete sentences. No accessory muscles are being utilized. She states she is having minimal chest pain and no significant shortness of breath at this time. Despite the relatively large size of the embolus on CT, the patient is stable. An echocardiogram is pending. I do not believe she fulfills the criteria clinically for catheter- directed thrombolysis. At this time, I do not think an IVC filter is necessary. Certainly, given the patient's history for recent gastrointestinal bleeding, we must be cautious with her anticoagulation. If any bleeding occurs , an IVC filter should be placed. I would encourage ambulation for this patient. Her DVT is likely related to her recent cerebrovascular accident. I would use extended anticoagulation in this patient as long as there are no bleeding issues. She may continue on anticoagulation indefinitely. She may benefit from compression stockings in the setting of her extensive bilateral DVTs. At this time, I agree with her management and would not intervene with TPA or filter placement. Wayne Sheppard MD cc: [id number] TT: 08/22/2016 14:49:24 Confirmation # [id number] Dictation # [id number] angelica STEVENS
--- NOTE | 2016-08-22 16:06 | PN ---
DATE: 08/22/2016 SUBJECTIVE: The patient is in ____ bed with ____ O2 via nasal cannula at 2 liters per minute____. The patient has no ____ shortness of breath, cough, wheezing, or ____, chest pain. No fever, chills, nausea, vomiting. No abdominal pain. No diarrhea. The patient's family member, her sister, is at bedside. I talked ____ with the sister as well as the patient answering questions about the pulmonary embolus as well as the DVT in the lower extremity and symptoms and types of treatment. Physical Exam Vital signs are stable____ ____O2 sat with 2 liters nasal cannula is normal____. HEENT: The patient's head is atraumatic, normocephalic. Eyes reactive to light ____. ____. HEART: Has a regular rate and rhythm. Normal S1, S2. LUNGS: Reveal decreased breath sounds at right base. No significant rales or rhonchi. ABDOMEN: Soft, nontender. Normal bowel sounds. GENITALIA AND RECTAL: Deferred. MUSCULOSKELETAL: No joint deformities. EXTREMITIES: Reveal trace lower extremity edema. NEUROLOGIC: She does have the weakness on the right side____. Imp ____ Patient has pulmonary embolus and bilateral lower extremity DVT'S. She also has resolving right lower lobe pneumonia with right-sided pleural effusion. The patient has history of CVA and right-sided weakness. PLAN: As far as our plan, we will continue with O2 via nasal cannula. Continue with aggressive pulmonary toilet. The patient is on bronchodilators as well as Eliquis and antiinflammatories as well as antibiotics. Appreciate __ __. I have____ discussed the____ treatment and____ diagnosis with Dr. Dutta and at this time, we will follow recommendations from Dr. Wayne Sheppard. We will continue to follow closely and treat aggressively along with the other consultants and the primary care doctor. Also note that the patient will get a CBC drawn in the morning. We will continue to treat aggressively along with the other consultants and the primary care doctor. Braden Calvin MD cc: [id number] TT: 08/22/2016 15:55:24 Confirmation # [id number] Dictation # [id number] MTDD
--- NOTE | 2016-08-22 19:06 | PN ---
DATE: 08/22/2016 The patient is an 85-year-old white female transferred to TCU from [facility] after having righ t pleuritic chest pain, right lower lobe infiltrate. The patient was recently found on CT to have a small saddle embolism, continued right small pleural effusion and right lower lobe infiltrate. The p atient's nonpleuritic chest pain has decreased. The patient was sent for a venous Doppler of the low er extremities and the pelvis, was found to have multiple pulmonary emboli in the lower extremities. The patient was seen in consultation by Dr. Deleon, vascular surgery and also by Dr. Wayne oliveira, invasive radiology and Dr. Calvin. 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 The patient has also a recent history of CA with a right hemiparesis. Due to the patient's CVA and recent GI bleed, the patient's saddle embolism was decided to be treated wi james Anayaquis, to be taking 5 mg twice a day. Due to the patient's recent CVA and GI bleed, we elected not to use a higher dose of 10 mg b.i.d. and not to use intravenous heparin or Coumadin. The patient has been stable. Vital signs are stable. She has had no further complaints. She is not short of b reath. On CT, the left ventricle looks normal and there is no collapse of the right atrium. The [facility] will also have an echo to look at the LV function. Plan is also to continue Eliquis and to foll ow her H and H and to continue with GI prophylaxis and physical therapy. The patient has decreased b reath sounds, but also with less pain on deep inspiration in the right lower lobe. The heart examina tion is regular sinus rhythm. Vital signs are stable. Blood pressure is 150/71. Stool will be chec ked for occult blood periodically. The plan is to continue Eliquis at this point. Dylan Dutta MD cc: [id number] TT: 08/22/2016 19:05:41 Confirmation # [id number] Dictation # [id number] mn
--- NOTE | 2016-08-23 05:06 | PCM.RRTMUL ---
<Javier Bailey - Last Filed: 08/23/16 05:03> RO[employer]ING [employer]S SWEEPER OPERATOR Nurse Assessment - Situation [employer] SWEEPER OPERATOR Responder Arrival Time:: 05:00 [employer] SWEEPER OPERATOR Reason for Call: Possible Stroke [employer] SWEEPER OPERATOR Called By: RN - IV IV Inserted during [employer]ING [employer] SWEEPER OPERATOR?: No IV Fluids Initiated During [employer] SWEEPER OPERATOR?: no patient refused all needle sticks - Medication Medications Administered During [employer] SWEEPER OPERATOR :: none; patient refused - Diagnostic Test Ordered EKG:: Yes (Sinus rhythym 80 BPM) CPR started during [employer]ARK[employer] SWEEPER OPERATOR?: No - Vital Signs Blood Pressure:: 150/71 Pulse Rate:: 82 - Nimisha Coma Scale Coma Scale Eye Opening:: Spontaneous Coma Scale Motor:: Obeys Commands Movement Coma Scale Verbal:: Oriented Coma Scale Total:: 15 - Recommendations 5) RO[employer] SWEEPER OPERATOR Level of Care Recommendations: Remain in current setting 6) Notifications: Attending Physician I.Reason for RO[employer]ARKING [employer]S SWEEPER OPERATOR - A) Acute Change in Patient: (Select all that apply): Acute change in mental status Subjective: Patients speech was slured; patient realized this and was getting frustrated nurse called [employer]ING [employer]S SWEEPER OPERATOR - B) Neurological Status (Select all that apply): Alert, Responsive, Oriented, Verbal, Follows Commands - C) Respiratory Oxygen Delivery Method: Room Air - Constitutional Appears: Non-toxic - Head Head Exam: ATRAUMATIC, NORMAL INSPECTION - Eyes Eye Exam: EOMI, Normal appearance - Respiratory Exam Respiratory Exam: Clear to Ausculation Bilateral, NORMAL BREATHING PATTERN - Cardiovascular Exam Cardiovascular Exam: REGULAR RHYTHM, +S1 - GI/Abdominal Exam GI & Abdominal Exam: Soft, Normal Bowel Sounds - Neurological Exam Neurological Exam: Alert, Awake, Oriented x3 - Extremities Exam Extremities Exam: Full ROM, Normal Inspection (slight right sided weakness in arm only ) Plan - B. Assessment of Findings&Treatment Plan Head CT, Bladder Scan showed no residual Patient refused all blood work; patient is ANOx3 and understands risks and benefits of treatment <Cezar Munoz - Last Filed: 09/04/16 20:46> Attending/Attestation - Attestation I have personally seen and examined this patient.: Yes I have fully participated in the care of the patient.: Yes I have reviewed all pertinent clinical information, including history, physical exam and plan: Yes
[2016-08-23] MEDS: Pantoprazole 40 mg EC Tab PO SCH (06:00)
[2016-08-23 07:31] LABS: ADD MANUAL DIFF? NO
[2016-08-23 08:00] LABS: BASO # 0.07 K/mm3 (0.0-2.0); BASO % 0.7 % (0.0-3.0); EOS # 0.4 (0.0-0.7); GRAN # 7.53 (1.4-6.5); GRAN % 74.9 % (50.0-68.0); LYMPH % 10.1 % (22.0-35.0); MEAN CELL VOLUME 85.1 fL (80.0-105.0); MEAN CORPUSCULAR HEMOGLOBIN 25.6 pg (25.0-35.0); MEAN CORPUSCULAR HGB CONC 30.1 g/dl (31.0-37.0); MEAN PLATELET VOLUME 9.6 fl (7.0-11.0); MONO % 10.3 % (1.0-6.0); PLATELET COUNT 437 10^3/uL (120.0-450.0); RED CELL DISTRIBUTION WIDTH 16.2 % (11.5-14.5); WHITE BLOOD COUNT 10.1 10^3/ul (4.5-11.0)
[2016-08-23 08:04] LABS: HEMATOCRIT 16.6 % (36.0-48.0)
--- NOTE | 2016-08-23 08:31 | CT ---
PROCEDURE: CT HEAD WITHOUT CONTRAST. HISTORY: AMS COMPARISON: None available. TECHNIQUE: Axial computed tomography images were obtained through the head/brain without intravenous contrast. Radiation dose: Total exam DLP = 767 mGy-cm. This CT exam was performed using one or more of the following dose reduction techniques: Automated exposure control, adjustment of the mA and/or kV according to patient size, and/or use of iterative reconstruction technique. FINDINGS: HEMORRHAGE: No intracranial hemorrhage. BRAIN: No mass effect or edema. Chronic microvascular changes. Mild atrophy. No acute findings VENTRICLES: Unremarkable. No hydrocephalus. CALVARIUM: Unremarkable. PARANASAL SINUSES: Unremarkable as visualized. No significant inflammatory changes. MASTOID AIR CELLS: Unremarkable as visualized. No inflammatory changes. OTHER FINDINGS: The report concurs with the preliminary [facility] report IMPRESSION: No acute findings
--- NOTE | 2016-08-23 08:59 | PN ---
DATE: 08/23/2016 An 85-year-old white female with a recent history of saddle embolism of the lung, bilateral DVT, hist ory of pneumonia, pleuritis, possible lung infarct. The patient has been on Eliquis since the report of her saddle embolism. The patient has been somewh at anxious, however, had an event in the middle of night. Was evaluated by the house doctor and brunner sferred to the ICU. Had a CT done which, so far, has been negative. PHYSICAL EXAMINATION: GENERAL: She was awake and alert and oriented x 3. NEUROLOGIC: Grossly intact. She does have a history of CVA with right weakness; however, because of the change in mental status, a code stroke was called and patient was transferred to the ER for possible admission, and a CT was d one which did not show any acute bleed. The patient just recently was on Eliquis. Her hemoglobin mtz d dropped to 5. The patient will be sent to the ICU for possible GI bleed and Eliquis will be held. Case will be discussed with the family. The patient will be transfused GAVI. Dylan Dutta MD cc: [id number] TT: 08/23/2016 08:58:52 Confirmation # [id number] Dictation # [id number] cristhian
--- NOTE | 2016-08-23 09:07 | CP.PCM.PN ---
<Migdalia Turcios - Last Filed: 08/23/16 11:38> Subjective - Date & Time of Evaluation Date of Evaluation: 08/23/16 Time of Evaluation: 09:04 - Subjective Subjective: Surgery: Dr. Deleon Patient states she feels ill this morning. Per nursing report, patient had [employer]PL[employer]EE called for slurred speech episode which lasted approximately [address] of the head which was negative for acute pathology. As of this morning speech has returned to normal. Patient states she does not want any more labs drawn from her. Objective - Vital Signs/Intake and Output Vital Signs (last 24 hours): Temp Pulse Resp BP Pulse Ox 98.1 F 82 18 150/71 100 08/22/16 10:00 08/23/16 05:06 08/22/16 10:00 08/23/16 05:06 08/22/16 10:00 - Medications Medications: Current Medications Albuterol/Ipratropium (Duoneb 3 Mg/0.5 Mg (3 Ml) Ud) 3 ml IH [id number] PRN PRN Reason: Shortness of Breath Alprazolam (Xanax) 0.25 mg PO BID PRN; Protocol PRN Reason: Anxiety Stop: 08/25/16 19:50 Last Admin: 08/22/16 23:10 Dose: 0.25 mg Guaifenesin/Dextromethorphan (Robitussin Dm) 5 ml PO Q4H PRN PRN Reason: Cough Losartan Potassium (Cozaar) 50 mg PO BID [facility] Last Admin: 08/22/16 11:11 Dose: 50 mg Metoprolol Succinate (Toprol Xl) 50 mg PO BRK [facility] Last Admin: 08/22/16 08:33 Dose: 50 mg Ondansetron HCl (Zofran Tab) 4 mg PO Q8H PRN PRN Reason: Nausea/Vomiting Pantoprazole Sodium (Protonix Ec Tab) 40 mg PO 0600 [facility] Last Admin: 08/23/16 06:00 Dose: 40 mg - Labs Labs: 08/23/16 07:00 - Constitutional Appears: Non-toxic, No Acute Distress - Head Exam Head Exam: ATRAUMATIC, NORMOCEPHALIC - Eye Exam Eye Exam: EOMI - ENT Exam ENT Exam: Mucous Membranes Moist - Respiratory Exam Respiratory Exam: NORMAL BREATHING PATTERN. absent: Respiratory Distress - Cardiovascular Exam Cardiovascular Exam: REGULAR RHYTHM. absent: Tachycardia - Back Exam Back Exam: absent: CVA tenderness (L), NORMAL INSPECTION - Neurological Exam Neurological Exam: Alert, Awake - Skin Skin Exam: Dry, Warm Assessment and Plan - Assessment and Plan (Free Text) Assessment: 85 y/o female w/ PE and bilateral DVT on Elliquis Plan: -IVC filter today -cont to monitor for bleeding or worsening respiratory status -d/w Dr. Deleon [facility] PGY1 <Elio Deleon - Last Filed: 08/23/16 19:34> Objective - Vital Signs/Intake and Output Vital Signs (last 24 hours): Temp Pulse Resp BP Pulse Ox 98.1 F 82 18 150/71 100 08/22/16 10:00 08/23/16 05:06 08/22/16 10:00 08/23/16 05:06 08/22/16 10:00 - Labs Labs: 08/23/16 07:00 Assessment and Plan - Assessment and Plan (Free Text) Plan: Patient was seen, evaluated and examined by me. I agree with the assessment and plan as per the resident's note.
--- NOTE | 2016-08-23 10:02 | PN ---
DATE: 08/23/2016 SUBJECTIVE: The patient is awake and alert on O2 via nasal cannula. O2 saturation is 100%. The patient was transferred to the Emergency Room last night from TCU because of a short episode of s lurred speech. CT of the head is negative for any abnormalities. The patient at this time, as state d, awake and alert. No complaints of nauseousness or vomiting. No chest pain. No complaints of taye rtness of breath or abdominal pain and no active bleeding at this time. It was noted on morning labs that hemoglobin was 5. The patient is being evaluated for transfer to the ICU. No fever or chills as per patient. She is comfortable from a respiratory status and in no distress. PHYSICAL EXAMINATION: VITAL SIGNS: Her temperature is 98.1, her pulse is 82, respirations are 18, and BP is 150/71. SKIN: Warm and dry. HEAD: Atraumatic, normocephalic. EYES: Reactive to light. EARS, NOSE AND THROAT: Seem to be within normal limits. NECK: Supple. No JVD, no thyroid enlargement, no lymph nodes. HEART: Has a regular rate and rhythm. Normal S1, S2. LUNGS: Reveal mild decreased breath sounds at the right base, but no rhonchi, wheezing or rales. ABDOMEN: Soft, nontender. Decreased bowel sounds. GENITALIA AND RECTAL: Deferred. MUSCULOSKELETAL: No joint deformities. EXTREMITIES: Reveal trace lower extremity edema. NEUROLOGIC: She has the weakness on the right side. LABORATORY DATA: Her white count is 10.1, hemoglobin is 5.0, hematocrit 16.6 with platelets of 437,[address] of the head reveals no acute findings. IMPRESSION: The patient has pulmonary embolus with bilateral lower extremity deep venous thromboses. She also has severe anemia and has a history of arteriovenous malformations of the gastrointestinal tract. The patient had episode of slurred speech and has a past history of cerebrovascular accident with right-sided weakness, but CT of the head reveals no acute changes or abnormalities. The patien t also has right lower lobe pneumonia which seems to be resolving with right-sided pleural effusion a s well. PLAN: We will continue with O2 via nasal cannula. Continue with aggressive pulmonary toilet and Jaclyn john has been stopped. The patient will be typed and crossmatched for a blood transfusion and is amelia ng evaluated for transfer to the ICU. She will be reevaluated by surgery and possibly IR for IVC sin ter and will be monitored closely and treated aggressively. We will follow her labs and correct as n caridad. Braden Calvin MD cc: [id number] TT: 08/23/2016 10:02:02 Confirmation # [id number] Dictation # [id number] tn
--- NOTE | 2016-08-23 20:44 | DS ---
The patient was discharged on 08/23/2016 to the Emergency Room at [facility]. She is an 85-year- old white female who was being seen at the TCU Center at [facility] when she developed a drop i n her hemoglobin to 5.6, status post recent treatment with Eliquis. The patient had been admitted wi th pleuritic chest pain, pneumonia and was found to have saddle embolism, deep venous thrombosis, a r ecent cerebrovascular accident, history of gastrointestinal bleed in the past. The patient was disch arged for emergency services including type and crossmatch and a transfusion and transferred to the i ntensive care unit. FINAL DISCHARGE DIAGNOSES: Saddle embolism of the lung, bilateral deep venous thrombosis, right lowe r lobe pneumonia, pleuritic chest pain with pleurisy, history of cerebrovascular accident, history of gastrointestinal bleed, and hypertension. Dylan Dutta MD cc: [id number] TT: 08/23/2016 20:43:46 rn
== END 2016-08-23 07:55 | disposition short-term general hospital (02) | DRG 193 ==
LOC: TRCU 19:23
PROVIDERS: ADMIT Internal Medicine; ATTEND Internal Medicine
PROC: F07L6YZ Therapeutic Exercise Treatment of Musculoskeletal System - Lower Back / Lower Extremity using Other Equipment (ICD-10-PCS; principal; 2016-08-21)
DX: J18.9 Pneumonia, unspecified organism (principal); I26.92 Saddle embolus of pulmonary artery without acute cor pulmonale; J91.8 Pleural effusion in other conditions classified elsewhere; I82.413 Acute embolism and thrombosis of femoral vein, bilateral; I69.351 Hemiplegia and hemiparesis following cerebral infarction affecting right dominant side; I82.433 Acute embolism and thrombosis of popliteal vein, bilateral; D64.9 Anemia, unspecified; I10 Essential (primary) hypertension; K21.9 Gastro-esophageal reflux disease without esophagitis; I25.10 Atherosclerotic heart disease of native coronary artery without angina pectoris; I73.9 Peripheral vascular disease, unspecified; R41.82 Altered mental status, unspecified; R47.81 Slurred speech

== ENCOUNTER 2016-08-23 07:54 | Inpatient (IN) | payer MEDICARE, BC ==
[2016-08-23 08:00] VITALS: BMI 22.1
--- NOTE | 2016-08-23 08:39 | ED PDOC ---
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 Patient currently denies any complaints. Denies abdominal pain, chest pain, shortness of breath, or dyspnea on exertion. Past Medical History - Provider Review Nursing Documentation Reviewed: Yes - Cardiac Hx Cardiac Disorders: Yes Hx Hypertension: Yes - Pulmonary Hx Respiratory Disorders: No - Neurological Hx Neurological Disorder: Yes HX Cerebrovascular Accident: Yes (R sided weakness, LE than UE) - HEENT Hx HEENT Disorder: Yes ([place] uses b/l hearing aids which are home) Hx Cataracts: Yes (b/l sx) - Renal Hx Renal Disorder: No - Endocrine/Metabolic Hx Endocrine Disorders: No - Hematological/Oncological Hx Blood Disorders: Yes Hx Anemia: Yes Other/Comment: left outer calf 0.7cm x 0.6cm dry brown lesion precancerous as per pt bx done - Integumentary Hx Dermatological Disorder: Yes Hx Basal Cell Carcinoma: (uncertain) - Musculoskeletal/Rheumatological Hx Musculoskeletal Disorders: No Hx Falls: No - Gastrointestinal Hx Gastrointestinal Disorders: Yes Hx Gastroesophageal Reflux: Yes - Genitourinary/Gynecological Hx Genitourinary Disorders: Yes Hx Incontinence: Yes - Psychiatric Hx Psychophysiologic Disorder: Yes Hx Anxiety: Yes Hx Substance Use: No - Surgical History Hx Carotid Endarterectomy: Yes - Anesthesia Hx Anesthesia: Yes Hx Anesthesia Reactions: No Hx Malignant Hyperthermia: No Family/Social History - Physician Review Nursing Documentation Reviewed: Yes Family/Social History: Unknown Family HX Smoking Status: Never Smoked Hx Alcohol Use: No Hx Substance Use: No Allergies/Home Meds Allergies/Adverse Reactions: Allergies No Known Allergies Allergy (Verified 08/18/16 19:48) Home Medications: Home Meds Medication Instructions Recorded Confirmed Alprazolam [Xanax] 0.25 mg PO PRN PRN 08/15/16 08/18/16 Clopidogrel [Plavix] 75 mg PO DAILY 08/15/16 08/18/16 Ferrous Sulfate [Feosol] 325 mg PO DAILY 08/15/16 08/18/16 Losartan [Cozaar] 50 mg PO DAILY 08/15/16 08/18/16 Metoprolol Succinate [Toprol XL] 25 mg PO DAILY 08/15/16 08/18/16 Pantoprazole [Protonix] 40 mg PO DAILY 08/15/16 08/18/16 Tramadol HCl [Ultram] 50 mg PO PRN PRN 08/15/16 08/18/16 Review of Systems - Physician Review All systems were reviewed & negative as marked: Yes Physical Exam - Physical Exam Narrative Physical Exam (Text): - Review of Systems Constitutional: Normal. absent: Fatigue, Weight Change, Fevers Eyes: Normal ENT: Normal Respiratory: Normal absent: SOB, Cough, Sputum, CONNOR Cardiovascular: Normal absent: Chest pain, Palpitations, Syncope Gastrointestinal: Normal absent: Abdominal pain, Diarrhea, Nausea, Vomiting Genitourinary: Normal. absent: Dysuria, Frequency, Hematuria Musculoskeletal: Normal. absent: Arthralgias, Back Pain, Neck Pain Skin: Normal Neurological: Slurred speech (resolved) absent: Focal Weakness Endocrine: Normal Hemo/Lymphatic: Normal Psychiatric: Normal - Physical exam Patient appears age appropriate, speaking full sentences without difficulty - Systems Exam Head: Present: Atraumatic, Normocephalic Pupils: Present: PERRL Extraocular Muscles: Present: EOMI Conjunctiva: Present: Normal Mouth: Present: Moist Mucous Membranes Neck: Present: Normal Range of Motion. No: MIDLINE TENDERNESS, Paraspinal Tenderness Respiratory/Chest: Present: Clear to Auscultation, Good Air Exchange. No: Respiratory Distress, Accessory Muscle Use, Tachypneic Cardiovascular: Present: Regular Rate and Rhythm, Normal S1, S2, Peripheral Pulses Present. No: Murmurs Abdomen: Present: Normal Bowel Sounds, No: Tenderness, Peritoneal Signs, Rebound, Guarding, Distention Back: Present: Normal Inspection. No: Midline Tenderness, Paraspinal Tenderness Upper Extremity: Present: Right upper extremity: Decreased division chair/strength. No: Cyanosis, Edema Lower Extremity: Present: Normal Inspection. No: Edema Neurological: Present: GCS=15, Speech Normal, cranial nerves II through XII intact. No ACUTE focal neurological deficits. Skin: Present: Warm, Dry, Normal Color. 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 On physical exam, patient has decreased RUE division chair and strength, consistent with residual deficits. No acute focal neurological deficits. Differential Diagnosis include but are not limited to: TIA, anemia Plan: -- -- Reassess and disposition Prior Visits: Notes and results from previous visits were reviewed. Patient was transferred to TCU after right pleuritic chest pain and right lower lobe infiltrates. Patient was found to have small saddle embolism with pleural effusion and infiltrate on CT scan. Her venous doppler showed multiple DVT's in lower extremities. 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 Also recent history of CVA with right hemiparesis. Patient being treated with Eliquis 5 mg and not 10 mg due to recent CVA and GI bleed. EKG: normal sinus, 94BPM, no ST-elevations, ST-depressions in lateral leads Progress Notes: Patient seen by Dr. Dutta, accepted to his service 08/23/16 08:[address] Mccallum from ICU, states he will evaluate 08/23/16 09:37 accepted to the MICU Guaiac positive stool, chaperoned by Dr. Yanez. pt in no distress, aware of and agrees with plan - Critical Care Critical Care Minutes: 30 minutes - Lab Interpretations Lab Results: Lab Results 08/23/16 09:05: Blood Type Pending, Antibody Screen Pending, Crossmatch See Detail, BBK History Checked Patient has bt - RAD Interpretation Radiology Orders: 08/23/16 09:35 CAR PERIPHERAL VASCULAR ORDER [VASCULAR] Stat 08/23/16 09:36 CAR PERIPHERAL VASCULAR ORDER [VASCULAR] Stat NIHSS Scale ([place]) Time Performed: 08:30 - How Severe is the Stoke Baseline Level of Consciousness: 0=Alert LOC to Questions: 0=Both comments correct LOC to commands: 0=Obeys both correctly Best Gaze: 0=Normal Visual: 0=No visual loss Facial: 0=Normal Motor Arm - Left: 0=No drift Motor Arm - Right: 1=Drift noted before 10 sec Motor Leg - Left: 0=No drift Motor Leg - Right: 0=No drift Limb Ataxia: 0=Absent Sensory: 0=Normal Best Language: 0=No aphasia Dysarthia: 0=Normal articulation Extinction & Inattention (Neglect): 0=Normal, no object Score: 1 Risk Level: Minor Stroke Risk rTPA Inclusion/Exclusion - Refusal of Treatment Patient Refused Treatment: No - Inclusion Criteria for Altepase Patient is 18 years or Older: Yes The Clinical Diagnosis of Ischemic Stroke That is Causing a Potentially Disabling Neurological Deficit: No Time of Onset is Well Established to be Less Than 270 Minute Before Treatment Would Begin: No Risk/Benefit Discussed With Patient/Family Member Present: No - Scribe Statement The provider has reviewed the documentation as recorded by the Palma Cabral Provider Scribe Attestation: All medical record entries made by the Palma were at my direction and personally dictated by me. I have reviewed the chart and agree that the record accurately reflects my personal performance of the history, physical exam, medical decision making, and the department course for this patient. I have also personally directed, reviewed, and agree with the discharge instructions and disposition. Disposition/Present on Arrival - Present on Arrival Any Indicators Present on Arrival: No History of DVT/PE: No History of Uncontrolled Diabetes: No Urinary Catheter: No History of Decub. Ulcer: No History Surgical Site Infection Following: None - Disposition Have Diagnosis and Disposition been Completed?: Yes Diagnosis: Anemia Disposition: HOSPITALIZED Disposition Time: 09:42 Patient Plan: Admission Condition: CRITICAL Referrals: Dylan Dutta MD [Primary Care Provider] - Follow up with primary
[2016-08-23 09:27] LABS: ADD MANUAL DIFF? NO
[2016-08-23 09:40] LABS: INR 1.17 (0.93-1.08); PARTIAL THROMBOPLASTIN TIME 29.4 Seconds (23.7-30.8)
[2016-08-23 09:42] LABS: BASO % 0.9 % (0.0-3.0); EOS # 0.4 (0.0-0.7); EOS % 3.7 % (1.5-5.0); GRAN # 7.92 (1.4-6.5); LYMPH # 1.3 (1.2-3.4); LYMPH % 11.7 % (22.0-35.0); MEAN CORPUSCULAR HEMOGLOBIN 25.5 pg (25.0-35.0); MEAN CORPUSCULAR HGB CONC 29.9 g/dl (31.0-37.0); MEAN PLATELET VOLUME 9.8 fl (7.0-11.0); MONO # 1.3 (0.1-0.6); MONO % 11.7 % (1.0-6.0); PLATELET COUNT 498 10^3/uL (120.0-450.0); RED CELL DISTRIBUTION WIDTH 16.1 % (11.5-14.5)
[2016-08-23 09:47] LABS: ALKALINE PHOSPHATASE 70 U/L (38-133); ALT/SGPT 29 U/L (7-56); AST/SGOT 22 U/L (15-39); BILIRUBIN,TOTAL 0.3 mg/dL (0.2-1.3); BLOOD UREA NITROGEN 27 mg/dL (7-21); CARBON DIOXIDE 29 mmol/L (21-33); CHLORIDE 102 mmol/L (95-110); GFR AFRICAN-AMERICAN > 60; GLUCOSE,RANDOM 96 mg/dL (70-110); HEMATOCRIT 18.7 % (36.0-48.0); POTASSIUM 4.1 mmol/L (3.6-5.0); SODIUM 137 mmol/L (132-148); TOTAL PROTEIN 5.7 g/dL (5.8-8.3)
[2016-08-23] MEDS ORDERED: Lidocaine 2% Inj (20ml) ONE (10:17)
[2016-08-23] MEDS ORDERED: Iodixanol 320 MG/ML 200 ML BOTTLE IV ONE (10:18)
--- NOTE | 2016-08-23 13:23 | CP.PCM.CON ---
<Shantelle Yanez - Last Filed: 08/23/16 14:35> History of Present Illness - History of Present Illness History of Present Illness: ICU Consult Note This is an 85Y F with PMH GI bleed seconday to AVM s/p clips, CVA with residual R sided weakness, HTN, HLD, PVD s/p L stent who was orignally admitted for pneumonia on 08/15. She was treated with antibiotics and sent to TCU. Patient noted to have continue pleuritic CP at TCU. CT was done which showed saddle PE and Duplex U/S showed bilateral DVT. She was started on Eliquis due to history of GI bleed. Last night patient was noted to be mumbling and confused. Code stroke was called. CT head was negative and Hgb noted to be 5. Patient was transferred to ER. She is noted to be hemoccult positive. She received IVC filter and PICC line today and was transferred to ICU. Patient was evaluated in ED and PACU pre and post IVC filter placement. She denies having any pain, but admits to having headache. Sister is at bedside and reports patient is at baseline mentation. PMH: GI bleed seconday to AVM s/p clips, CVA with residual R sided weakness, HTN , HLD, PVD s/p L stent PSH: L leg endovascular stent, AVM clips Home meds: Please see MAR All: NKDA SH: primary primary care pediatrician is sister who she lives with Review of Systems - Constitutional Constitutional: absent: Chills, Fever - EENT Eyes: absent: Change in Vision Nose/Mouth/Throat: absent: Bleeding Gums, Sore Throat - Cardiovascular Cardiovascular: absent: Chest Pain, Diaphoresis, Dyspnea, Leg Edema, Leg Ulcers - Respiratory Respiratory: absent: Cough, Dyspnea, Hemoptysis - Gastrointestinal Gastrointestinal: Change in Bowel Habits, Melena. absent: Abdominal Pain, Belching, Bloating, Diarrhea, Nausea, Vomiting - Genitourinary Genitourinary: absent: Dysuria, Hematuria - Musculoskeletal Musculoskeletal: absent: Muscle Weakness, Numbness, Tingling - Integumentary Integumentary: absent: Change in Hair, Change in Nails, Change in Pigmentation - Neurological Neurological: Headaches. absent: Confusion, Numbness, Syncope, Tingling, Tremor , Vertigo, Weakness - Psychiatric Psychiatric: absent: Anxiety, Depression Past Patient History - Past Social History Smoking Status: Never Smoked Alcohol: None Drugs: Denies Home Situation {Lives}: With Family - CARDIAC Hx Cardiac Disorders: Yes Hx Hypertension: Yes - PULMONARY Hx Respiratory Disorders: No - NEUROLOGICAL Hx Neurological Disorder: Yes HX Cerebrovascular Accident: Yes (R sided weakness, LE than UE) - HEENT Hx HEENT Problems: Yes ([place] uses b/l hearing aids which are home) Hx Cataracts: Yes (b/l sx) - RENAL Hx Chronic Kidney Disease: No - ENDOCRINE/METABOLIC Hx Endocrine Disorders: No - HEMATOLOGICAL/ONCOLOGICAL Hx Blood Disorders: Yes Hx Anemia: Yes Other/Comment: left outer calf 0.7cm x 0.6cm dry brown lesion precancerous as per pt bx done - INTEGUMENTARY Hx Dermatological Problems: Yes Hx Basil Cell: (uncertain) - MUSCULOSKELETAL/RHEUMATOLOGICAL Hx Musculoskeletal Disorders: No Hx Falls: No - GASTROINTESTINAL Hx Gastrointestinal Disorders: Yes Hx Gastroesophageal Reflux: Yes - GENITOURINARY/GYNECOLOGICAL Hx Genitourinary Disorders: Yes Hx Incontinence: Yes - PSYCHIATRIC Hx Psychophysiologic Disorder: Yes Hx Anxiety: Yes Hx Substance Use: No - SURGICAL HISTORY Hx Carotid Endarterectomy: Yes - ANESTHESIA Hx Anesthesia: Yes Hx Anesthesia Reactions: No Hx Malignant Hyperthermia: No Meds Allergies/Adverse Reactions: Allergies Allergy/AdvReac Type Severity Reaction Status Date / Time No Known Allergies Allergy Verified 08/18/16 19:48 Physical Exam - Constitutional Appears: No Acute Distress - Head Exam Head Exam: ATRAUMATIC, NORMAL INSPECTION, NORMOCEPHALIC - Eye Exam Eye Exam: Normal appearance Pupil Exam: NORMAL ACCOMODATION Additional comments: pale sclera - ENT Exam ENT Exam: Mucous Membranes Moist - Neck Exam Neck exam: Positive for: Normal Inspection - Respiratory Exam Respiratory Exam: Clear to Auscultation Bilateral, NORMAL BREATHING PATTERN. absent: Rales, Rhonchi, Wheezes - Cardiovascular Exam Cardiovascular Exam: REGULAR RHYTHM, +S1, +S2. absent: Gallop, Rubs, Systolic Murmur - GI/Abdominal Exam GI & Abdominal Exam: Normal Bowel Sounds, Soft. absent: Mass, Rebound, Rigid, Tenderness - Extremities Exam Extremities exam: Positive for: normal inspection. Negative for: calf tenderness, pedal edema Additional comments: IVC filter surgical site on L- clean and dry - Neurological Exam Neurological exam: Alert, CN II-XII Intact, Oriented x3 - Psychiatric Exam Psychiatric exam: Normal Affect, Normal Mood - Skin Skin Exam: Dry, Intact, Pallor, Warm Results - Vital Signs Recent Vital Signs: Last Vital Signs Temp 98.1 F 08/23/16 13:00 Pulse 101 H 08/23/16 13:00 Resp 16 08/23/16 13:00 BP 153/71 H 08/23/16 13:00 Pulse Ox 96 08/23/16 13:00 - Labs Result Diagrams: 08/23/16 09:05 08/23/16 09:05 Assessment & Plan - Assessment and Plan (Free Text) Assessment: This is an 85Y F with PMH HTN, HLD, PVD s/p stent on L, GI bleed secondary to AVM s/p clips, CVA with residual R sided weakness who was admitted for pneumonia , found to have bilateral DVT and saddle PE in TCU. She was transferred to ED for AMS and code stroke called. CT head negative. Hgb found to be 5 with positive hemoccult. Patient hemodynamically stable and admitted to ICU for further monitoring. Plan: Neuro: A&O x [address] head showed no acute process CV: Hemodynamically stable at this time Continue to monitor vitals Maintain MAP >65 Resp: Pt comfortable on NC Maintain sp02>90% Pt noted to have saddle PE- no anticoagulation at this time for GI bleed/ anemia GI: Hemoccult positive GI consulted Protonix q12 IVP Clear liquid diet Renal: Monitor CMP- will replace electrolytes as needed Heme: IVC filter in place CBC q6h Transfuse 2U PRBC Maintain Hgb >8 No anticoaguation at this time for PE and DVT due to GI bleed ID: Afebrile, no leukocytosis Maintain normothermia Endo: Maintain euvolemia and euglycemia. GI ppx: Protonix DVT ppx: none at this time, pt has DVT and GI bleed Case seen, discussed and reviewed with attending Joceline Yanez PGY1 - Date & Time Date: 08/23/16 Time: 15:29 <Zehra Mccallum MD - Last Filed: 08/23/16 17:21> Meds - Medications Medications: Current Medications Diphenhydramine HCl (Benadryl) 25 mg PO HS PRN PRN Reason: Insomnia Losartan Potassium (Cozaar) 50 mg PO DAILY [facility]IN Metoprolol Succinate (Toprol Xl) 25 mg PO DAILY KEVIN Non-Formulary Medication (Ferrous Sulfate [Feosol]) 325 mg PO DAILY [facility]EVIN Pantoprazole Sodium (Protonix Inj) 40 mg IVP Q12 KEVIN Pantoprazole Sodium (Protonix Ec Tab) 40 mg PO DAILY [facility]EVIN Results - Vital Signs Recent Vital Signs: Last Vital Signs Temp 98 F 08/23/16 15:44 Pulse 101 H 08/23/16 15:50 Resp 32 H 08/23/16 15:50 BP 153/66 H 08/23/16 15:45 Pulse Ox 100 08/23/16 15:50 - Labs Result Diagrams: 08/23/16 09:05 08/23/16 09:05 Attending/Attestation - Attestation I have personally seen and examined this patient.: Yes I have fully participated in the care of the patient.: Yes I have reviewed all pertinent clinical information: Yes Notes (Text): 08/23/16 17:17 85 y/o F w/ new onset TIA Recent CVA and P.E on Anticoagulation x 3 days HGB drop acutely without any overt blood loss. Stool occult positive , HX of AVM 's . Hemodynamics intact . No acute cp, or SOB TIA symptoms resolved. Off anticoagulation and now placed w/ IVC filter. CBC trend q 6hrs . Keep HGB > 7 Monitor for blood loss. PPI BID, GI consulted, w/ hx of AVM Neurochecks q 1hrs for TIA and recent CVA. cc time 65 min
--- NOTE | 2016-08-23 15:51 | CARD ---
APPROVED REPORT EKG Measurement Heart [id number] <Conclusion> Normal sinus rhythm Left ventricular hypertrophy Leftward axis STTW changes c/w strain and /or ischemia
--- NOTE | 2016-08-23 16:22 | CP.PCM.CON ---
History of Present Illness - History of Present Illness History of Present Illness: Seen and examined earlier this afternoon in PACU, chart was reviewed. Request for GI consult is GI Bleed. HPI: This is a 85 year old patient seen in the PACU s/p IVC filter today and receiving blood transfusion. Sister is at bedside contributing to history. The patient has a history of CVA with right sided weakness on Plavix, Anemia, GI Bleed with h/o AVM s/p clips, HTN, was brought to the ER from TCU , she was in TCU for IV antibiotics and PT , was being treated for Pneumonia. The patient while in TCU complained of pleuritic chest pain and ct scan of the chest was done on 08/20 and found to have saddle PE and Lower extremity Doppler reported bilateral bilateral DVT. The patient was started on Eliquis. Last night the patient was reported to be confused and mumbling, Code Stroke was called. She was sent to the ER and ct scan of the head done and was negative but found to have a hemoglobin of 5. The patient does report black stool but says that she is on Iron supplements, but Guaic was done in the ER and was positive. The patient is pale , reports that she is tired, no SOB or abdominal pain. Denies acid reflux but had nausea the other day and vomited but no hematemesis. No c/o dysphagia. She did have EGD and Colon last year with Dr. Livingston cvt rn in [place], where she was found to have AVM s/p 3 hemoclips. Colon no acute findings. The patient also FU with senior quality technician, Dr. Andrews for Anemia and receives Iron infusion. PMH: CVA with right sided weakness, Gastric AVM, s/p clips, Anemia, PVD s/p left leg stent, HTN, HLD PSH: EGD/colon done 1 year ago, for GI bleed, s/p gastric hemoclips, Left leg endovascular stent Social HX: denies smoking, ETOH, drugs, and lives with sister Family HX: noncontributory at this time ALlergies: NKDA MEDS: reviewed as per MAY, was on Eliquis now stopped due to Anemia ROS: systems reviewed with positive findings, see HPI. Past Patient History - Past Social History Smoking Status: Never Smoked Alcohol: None Drugs: Denies Home Situation {Lives}: With Family - CARDIAC Hx Cardiac Disorders: Yes Hx Hypertension: Yes - PULMONARY Hx Respiratory Disorders: No - NEUROLOGICAL Hx Neurological Disorder: Yes HX Cerebrovascular Accident: Yes (R sided weakness, LE than UE) - HEENT Hx HEENT Problems: Yes ([place] uses b/l hearing aids which are home) Hx Cataracts: Yes (b/l sx) - RENAL Hx Chronic Kidney Disease: No - ENDOCRINE/METABOLIC Hx Endocrine Disorders: No - HEMATOLOGICAL/ONCOLOGICAL Hx Blood Disorders: Yes Hx Anemia: Yes Other/Comment: left outer calf 0.7cm x 0.6cm dry brown lesion precancerous as per pt bx done - INTEGUMENTARY Hx Dermatological Problems: Yes Hx Basil Cell: (uncertain) - MUSCULOSKELETAL/RHEUMATOLOGICAL Hx Musculoskeletal Disorders: No Hx Falls: No - GASTROINTESTINAL Hx Gastrointestinal Disorders: Yes Hx Gastroesophageal Reflux: Yes - GENITOURINARY/GYNECOLOGICAL Hx Genitourinary Disorders: Yes Hx Incontinence: Yes - PSYCHIATRIC Hx Psychophysiologic Disorder: Yes Hx Anxiety: Yes Hx Substance Use: No - SURGICAL HISTORY Hx Carotid Endarterectomy: Yes - ANESTHESIA Hx Anesthesia: Yes Hx Anesthesia Reactions: No Hx Malignant Hyperthermia: No Meds Allergies/Adverse Reactions: Allergies Allergy/AdvReac Type Severity Reaction Status Date / Time No Known Allergies Allergy Verified 08/18/16 19:48 Physical Exam - Constitutional Appears: No Acute Distress Additional comments: PALE - Head Exam Head Exam: NORMOCEPHALIC - Eye Exam Eye Exam: Normal appearance, PERRL. absent: Scleral icterus - ENT Exam ENT Exam: Mucous Membranes Moist - Neck Exam Neck exam: Positive for: Normal Inspection - Respiratory Exam Respiratory Exam: Decreased Breath Sounds (bases but more on right, no wheeze or rales), Clear to Auscultation Bilateral, NORMAL BREATHING PATTERN. absent: Respiratory Distress - Cardiovascular Exam Cardiovascular Exam: +S1, +S2 - GI/Abdominal Exam GI & Abdominal Exam: Normal Bowel Sounds, Soft. absent: Distended, Guarding, Organomegaly, Rebound, Tenderness - Extremities Exam Extremities exam: Positive for: pedal pulses present. Negative for: calf tenderness, pedal edema Additional comments: left groin site dry and intact, no bleeding noted, no edema - Neurological Exam Neurological exam: Oriented x3 (awake but drowsy, s/p IVC filter) Results - Vital Signs Recent Vital Signs: Last Vital Signs Temp 98.1 F 08/23/16 14:30 Pulse 104 H 08/23/16 15:20 Resp 21 08/23/16 15:20 BP 134/102 H 08/23/16 15:15 Pulse Ox 100 08/23/16 15:20 - Labs Result Diagrams: 08/23/16 18:08 08/23/16 09:05 Assessment & Plan - Assessment and Plan (Free Text) Assessment: ASSESSMENT: Severe Anemia likely secondary to GI Bleed, guiac positive H/O Gastric AVM with hemoclips Saddle PE Bilteral LE DVT s/p IVC filter Pneumonia H/O CVA with right sided weakness PLAN PRBC blood transfusion in progress repeat cbc 5 pm Protonix 40 mg Q12H Clear liquid monitor for overt GI bleed Off blood thinners: Eliquis/Plavix GI : Dr. Livingston: [phone], request copies of previous egd/colon. In view of severe anemia and h/o GIB with AVM patient would benefit from Upper endo when optimal. Will monitor closely and make further recommendation based upon clinical course. Spoke to the sister at bedside. Seen and discussed with Dr. Padilla.
[2016-08-23] MEDS ORDERED: Pneumococcal 23-Valent Vaccine IM ONE (17:33)
[2016-08-23 18:09] LABS: ADD MANUAL DIFF? NO
[2016-08-23 18:23] LABS: BASO # 0.07 K/mm3 (0.0-2.0); BASO % 0.8 % (0.0-3.0); EOS # 0.3 (0.0-0.7); GRAN # 6.06 (1.4-6.5); LYMPH # 1.2 (1.2-3.4); LYMPH % 13.8 % (22.0-35.0); MEAN CELL VOLUME 86.8 fL (80.0-105.0); MEAN CORPUSCULAR HEMOGLOBIN 26.9 pg (25.0-35.0); MEAN PLATELET VOLUME 9.4 fl (7.0-11.0); MONO % 11.4 % (1.0-6.0); PLATELET COUNT 429 10^3/uL (120.0-450.0); RED CELL DISTRIBUTION WIDTH 16.9 % (11.5-14.5); WHITE BLOOD COUNT 8.5 10^3/ul (4.5-11.0)
--- NOTE | 2016-08-23 19:44 | HP ---
An 85-year-old white female admitted in the ER. The patient had been on TCU in [facility] and was found to have a drop in hemoglobin to 5.6. The patient had recently been started on Eliquis for prophylaxis of DVT and saddle embolism of the lung. The patient also has a history of AVMs in the ga stric mucosa with bleeding in the past, which had recently been clipped. Also, has a recent CVA with right hemiparesis. The patient was transferred from TCU to the ER, was evaluated, typed and cross-m atched for blood and transferred to the intensive care unit. The patient will be taken off her Plavi x and her Eliquis and patient will have a filter placed to prophylax against a recurrent PE. PHYSICAL EXAMINATION: GENERAL: Shows a well-developed, but pale white female in mild distress. HEENT: Essentially within normal limits. HEART: Regular sinus rhythm. No S3 or murmurs. CHEST: Shows decreased breath sounds and rales anterior and posterior in the right base. ABDOMEN: Benign. EXTREMITIES: Without cyanosis, clubbing or edema. NEUROLOGIC: Grossly intact. IMPRESSION: Gastrointestinal bleed in an anticoagulated female with saddle embolism, deep venous thr ombosis and recent history of cerebrovascular accident, history of right lower lobe pneumonia and a h istory of gastric arteriovenous malformations in the past. Dylan Dutta MD cc: [id number] TT: 08/23/2016 19:44:12 ms
--- NOTE | 2016-08-23 20:03 | CON ---
DATE: 08/23/2016 This patient was seen and evaluated today. Discussed with the director of casino and also the resident in t he unit. I discussed with the family members who are at bedside. This 85-year-old patient initially admitted to the hospital with pneumonia and subsequently was found to have massive PE. The patient was started on Eliquis, found to have a hemoglobin of 5 and weakness, confusion. The patient was fou nd to have GI bleeding with guaiac positive stool, dark stool was guaiac positive. The patient has b een on iron also. The patient did have a drop in his hemoglobin from 8.8 on 08/18 to 5.0 on 08/23. No h istory of vomiting blood. The patient did have an angiogram done. The patient have an IVC filter pl acement today. The patient has a history of GI bleeding, a clipping of the AVM in the past. No vomi ting. No abdominal complaints. No abdominal pain. PHYSICAL EXAMINATION: GENERAL: At the time of examination, she has some remains afebrile. VITAL SIGNS: Blood pressure 130/75, pulse is 92, respirations 17. ABDOMEN: Soft. There is no mass palpable. No tenderness. HEART: S1, S2 heard regular. LUNGS: Bilateral air entry present. IMPRESSION: This 85-year-old patient with pulmonary embolus status post inferior vena cava filter pl acement and history of pneumonia. The patient was on Eliquis, the last dose was yesterday evening. History of gastrointestinal bleeding in the past, has status post clipping of the arteriovenous malfo rmation. She is status post cerebrovascular accident. The patient was on Plavix. History of periph eral arterial disease, status post left leg endovascular stent. PLAN: I had a detailed discussion with the director of casino. The present plan is to give at least 2 - 3 units of packed RBC to keep hemoglobin more than 8. Will consider endoscopic evaluation. Other conc hermes is the patient was on Eliquis and last dose was less than 24 hours. The patient is not a kb te to use the Kcentra as the patient has a large pulmonary embolism, which can worsen this. The sommer ent also on Plavix. The plan is to continue the PPI and close follow up of the hemoglobin, hematocri t and consider upper GI endoscopy after further optimization and improvement of the hemoglobin. The patient's condition is guarded. I explained to the patient. Will also discuss with the patient's ga stroenterologist, Dr. Livingston, and also with Dr. Dutta. Thank you very much for allowing us to participate in the care of the patient. Ronny Padilla MD cc: [id number] TT: 08/23/2016 20:02:45 Confirmation # [id number] Dictation # [id number] jn
--- NOTE | 2016-08-23 20:12 | VASCULAR ---
PROCEDURE: Ultrasound and fluoroscopically placed left upper extremity PICC line. HISTORY: Pulmonary embolus. GI bleed. Limited IV access. Needs PICC line. PHYSICIAN(S): Wayne Sheppard MD. TECHNIQUE: The relative risks and indications of the procedure were explained to the patient and consent obtained. The patient was placed supine on the arteriogram table and the left arm prepped and draped in the usual sterile fashion. A tourniquet was applied to the left axilla. 1% Xylocaine was used to anesthetize the skin and soft tissues at the puncture site above the elbow. The left basilic vein was punctured under direct ultrasound guidance with a micropuncture set. A 0.018 guidewire was advanced centrally and used to measure the length to the SVC/RA junction. A 5 British dual lumen PICC line 45 cm long was advanced to the SVC/RA junction. The catheter was flushed and secured. The patient tolerated the procedure well. IMPRESSION: 1. Ultrasound and fluoroscopically placed left upper extremity PICC line. A 5 British dual lumen PICC line 45 cm long was advanced to the SVC/RA junction.
--- NOTE | 2016-08-23 20:14 | VASCULAR ---
PROCEDURE: IVC Filter placement HISTORY: Pulmonary embolus. Large GI bleed. Needs IVC filter PHYSICIAN(S): Peng Deleon MD TECHNIQUE: The relative risks and indications of the procedure were explained to the patient and consent obtained. The patient was placed supine on the arteriogram table the left groin prepped and draped usual sterile fashion. Conscious sedation and monitoring were provided throughout the procedure by a nurse. Via a left common femoral vein approach, a 5 Mongolian sheath was placed. The guidewire and flush catheter were advanced over the IVC bifurcation and placed in the left iliac venous system. A PA DSA IVC gram was performed with emphasis on the renal veins. Exchange was made for a support wire placed in the right atrium. The 6 Mongolian sheath was advanced to the level of the renal veins. Next a Argon retrievable filter was deployed in the infrarenal IVC at the level of L2. A post deployment cavagram was performed through the introducer sheath. The sheath was removed and hemostasis obtained. Patient tolerated the procedure well. FINDINGS: The visualized iliac veins and IVC are normal. No evidence of IVC thrombus or anomaly is seen. The renal veins are easily identified. The Argon retrievable filter was deployed and is in good position at the level of L2. IMPRESSION: 1. No evidence of IVC anomaly or thrombus. 2. Successful deployment of a Argon retrievable filter in the infrarenal IVC at the level of L2.
--- NOTE | 2016-08-23 20:32 | OP ---
PROCEDURE DATE: 08/23/2016 PREOPERATIVE DIAGNOSES: Acute pulmonary embolus and deep venous thrombosis of bilateral lower extremities, with acute anemia. POSTOPERATIVE DIAGNOSES: Acute pulmonary embolus and deep venous thrombosis of bilateral lower extremities, with acute anemia. PROCEDURE PERFORMED: Placement of the inferior vena cava filter under fluoroscopic guidance and ultrasound guidance for access. SURGEON: Dr. Deleon. MANDARIN TUTOR: Dr. Turcios ANESTHESIA: Local anesthesia. ESTIMATED BLOOD LOSS: Minimal. SPECIMEN: None. INDICATION: The patient is an 85-year-old female who was diagnosed with pulmonary embolus and bilateral deep venous thrombosis of lower extremities. However, she was initially treated with Eliquis and subsequently developed bleeding, and a decision was made to proceed with placement of the IVC filter. DESCRIPTION OF PROCEDURE: The patient was brought to the operating room, placed on the operating table in supine position. The patient was connected to EKG, blood pressure, and pulse oximeter monitors. The patient then was prepped and draped in the usual sterile fashion. The procedure was done in the angiographic suite operating room. First, time-out procedure took place and everybody in the room agreed this was the patient's identity, diagnosis, and procedure to be performed. Once the patient was prepped and draped, under ultrasound guidance, access to the left femoral vein was obtained and the guidewire was passed into the inferior vena cava. Next, the sheath was placed over the guidewire and through the sheath the catheter was placed into the level just below the renal veins and the roadmap and venogram was obtained. That revealed the position of both renal veins and it was marked. Now, the retrievable vena cava filter was placed at the tip of the liver catheter and the filter was then pushed to the tip of the catheter. Once the appropriate position for the filter was picked, I then proceeded with pulling the sheath and the catheter opened up fully in the lumen of the inferior vena cava. A repeat venogram was done in order to assure the position of the catheter as well as lack of any injury to the vessel. This appeared to be all in appropriate position, as well as there was no extravasation noted. At this point, the catheter was then pulled back and the sheath was removed from the groin access, and a pressure dressing was applied to the wound. The patient tolerated the procedure well and there were no complications. The patient was then transferred to recovery room. Elio Deleon MD cc: [id number] TT: 08/23/2016 20:31:45 dn MTDD
[2016-08-23 23:42] LABS: ADD MANUAL DIFF? NO
[2016-08-23 23:51] LABS: BASO # 0.09 K/mm3 (0.0-2.0); BASO % 1.1 % (0.0-3.0); EOS # 0.4 (0.0-0.7); EOS % 4.6 % (1.5-5.0); GRAN # 5.68 (1.4-6.5); GRAN % 66.6 % (50.0-68.0); LYMPH # 1.3 (1.2-3.4); LYMPH % 15.2 % (22.0-35.0); MEAN CELL VOLUME 86.3 fL (80.0-105.0); MEAN CORPUSCULAR HEMOGLOBIN 27.4 pg (25.0-35.0); MEAN CORPUSCULAR HGB CONC 31.8 g/dl (31.0-37.0); MEAN PLATELET VOLUME 9.4 fl (7.0-11.0); MONO # 1.1 (0.1-0.6); MONO % 12.5 % (1.0-6.0); PLATELET COUNT 370 10^3/uL (120.0-450.0); RED CELL DISTRIBUTION WIDTH 16.1 % (11.5-14.5); WHITE BLOOD COUNT 8.5 10^3/ul (4.5-11.0)
[2016-08-24 00:10] LABS: HEMATOCRIT 23.9 % (36.0-48.0)
[2016-08-24 05:35] LABS: ADD MANUAL DIFF? NO
[2016-08-24 05:42] LABS: BASO # 0.08 K/mm3 (0.0-2.0); BASO % 0.9 % (0.0-3.0); EOS # 0.6 (0.0-0.7); EOS % 6.1 % (1.5-5.0); GRAN # 6.21 (1.4-6.5); GRAN % 68.9 % (50.0-68.0); HEMATOCRIT 24.7 % (36.0-48.0); LYMPH # 1.1 (1.2-3.4); LYMPH % 12.2 % (22.0-35.0); MEAN CELL VOLUME 86.7 fL (80.0-105.0); MEAN CORPUSCULAR HEMOGLOBIN 27.4 pg (25.0-35.0); MEAN CORPUSCULAR HGB CONC 31.6 g/dl (31.0-37.0); MEAN PLATELET VOLUME 9.4 fl (7.0-11.0); MONO # 1.1 (0.1-0.6); MONO % 11.9 % (1.0-6.0); PLATELET COUNT 395 10^3/uL (120.0-450.0); RED CELL DISTRIBUTION WIDTH 16.3 % (11.5-14.5)
[2016-08-24 05:50] LABS: ALKALINE PHOSPHATASE 70 U/L (38-133); ALT/SGPT 28 U/L (7-56); AST/SGOT 29 U/L (15-39); BILIRUBIN,TOTAL 0.6 mg/dL (0.2-1.3); BLOOD UREA NITROGEN 18 mg/dL (7-21); CALCIUM 8.8 mg/dL (8.4-10.5); CARBON DIOXIDE 29 mmol/L (21-33); CHLORIDE 104 mmol/L (95-110); GFR AFRICAN-AMERICAN > 60; GLUCOSE,RANDOM 91 mg/dL (70-110); POTASSIUM 3.8 mmol/L (3.6-5.0); SODIUM 137 mmol/L (132-148); TOTAL PROTEIN 5.3 g/dL (5.8-8.3)
[2016-08-24] MEDS: Pantoprazole 40 mg EC Tab PO SCH (07:55)
--- NOTE | 2016-08-24 08:47 | PN ---
DATE: 08/24/2016 An 85-year-old white female in the ICU, transferred to the ICU from TCU yesterday. The patient had a GI bleed. There is no further GI bleeding. She is receiving blood transfusion. Her hemoglobin is up to 7.8; it had been low as 5.5. She is on her third unit of blood. Her blood pressure is 159/65. Her temperature is 98. She had a filter placed yesterday by Dr. Deleon. VITAL SIGNS: Stable. CHEST: Clear to auscultation and percussion. She has no further pleuritic chest pain. She has had a recent saddle embolism of the lung, bilateral DVTs, history of GI bleed in the past, history of CVA in the past, right hemiparesis - resolving. The patient is comfortable. REVIEW OF SYSTEMS: A 12-point review of systems is unremarkable. The patient will most likely will have an EGD by Dr. Padilla today. PLAN: To continue to hold all anticoagulation and to continue to transfuse the patient, and to rely on the filter for protection against further PEs. Dylan Dutta MD cc: [id number] TT: 08/24/2016 08:46:38 Confirmation # [id number] Dictation # [id number] jn
--- NOTE | 2016-08-24 09:17 | CP.PCM.PN ---
<Shantelle Yanez - Last Filed: 08/24/16 14:40> Subjective - Date & Time of Evaluation Date of Evaluation: 08/24/16 Time of Evaluation: 09:11 - Subjective Subjective: ICU Progress Note Patient seen and examined at bedside. There were no acute overnight event. She is resting comfortably in bed. She denies having any pain, n/v/d, CP, SOB, numbness/tingling. The patient says she feels weak, but weakness improved from yesterday. She is going to go for EGD today. Objective - Vital Signs/Intake and Output Vital Signs (last 24 hours): Temp Pulse Resp BP Pulse Ox 98 F 93 H 18 177/77 H 100 08/24/16 08:21 08/24/16 08:21 08/24/16 08:21 08/24/16 08:21 08/24/16 08:00 Intake and Output: 08/24/16 08/24/16 06:59 18:59 Intake Total 325 0 Balance 325 0 - Medications Medications: Current Medications Diphenhydramine HCl (Benadryl) 25 mg PO HS PRN PRN Reason: Insomnia Last Admin: 08/23/16 21:09 Dose: 25 mg Ferrous Sulfate (Feosol) 324 mg PO DAILY [facility] Losartan Potassium (Cozaar) 50 mg PO DAILY [facility] Metoprolol Succinate (Toprol Xl) 25 mg PO DAILY [facility] Pantoprazole Sodium (Protonix Ec Tab) 40 mg PO ACB [facility] Last Admin: 08/24/16 07:55 Dose: 40 mg - Labs Labs: 08/24/16 05:20 08/24/16 05:20 PT 12.6 Seconds (9.9-11.8) H 08/23/16 09:05 INR 1.17 (0.93-1.08) H 08/23/16 09:05 APTT 29.4 Seconds (23.7-30.8) 08/23/16 09:05 - Constitutional Appears: No Acute Distress - Head Exam Head Exam: ATRAUMATIC, NORMAL INSPECTION, NORMOCEPHALIC - Eye Exam Eye Exam: Normal appearance, PERRL Pupil Exam: NORMAL ACCOMODATION, PERRL - ENT Exam ENT Exam: Mucous Membranes Moist - Neck Exam Neck Exam: Full ROM, Normal Inspection - Respiratory Exam Respiratory Exam: Clear to Ausculation Bilateral, NORMAL BREATHING PATTERN. absent: Rales, Rhonchi, Wheezes, Stridor - Cardiovascular Exam Cardiovascular Exam: REGULAR RHYTHM, +S1, +S2. absent: Gallop, Rubs, Murmur - GI/Abdominal Exam GI & Abdominal Exam: Soft, Normal Bowel Sounds. absent: Rigid, Tenderness, Mass , Rebound - Extremities Exam Extremities Exam: Full ROM, Normal Inspection. absent: Calf Tenderness, Pedal Edema - Neurological Exam Neurological Exam: Alert, Awake, CN II-XII Intact, Oriented x3 Neuro motor strength exam: Left Upper Extremity: 5, Right Upper Extremity: 3, Left Lower Extremity: 5, Right Lower Extremity: 5 - Psychiatric Exam Psychiatric exam: Normal Affect, Normal Mood - Skin Skin Exam: Dry, Intact, Normal Color, Warm Assessment and Plan - Assessment and Plan (Free Text) Assessment: This is an 85Y F with PMH HTN, HLD, PVD s/p stent on L, GI bleed secondary to AVM s/p clips, CVA with residual R sided weakness who was admitted for pneumonia , found to have bilateral DVT and saddle PE in TCU. Code stroke was called. Pt transferred to ED and found to be anemic with Hgb of 5. She received 2U PRBC yesterday. She also had a PICC line and IVC filter placed yesterday as well. Plan: Neuro: A&O x 3 Continue Neuro check CV: HD stable Continue BP meds Maintain MAP >65 Echo done on 08/22- read pending - need to see if having R heart strain Will check troponin Resp: Saddle PE, but denies SOB Continue NC Maintain sp02>90% GI: GI consulted- EGD planned for tomorrow CT abd/pelvis ordered Will check lactic acid Protonix Clear liquid diet as per GI Renal: Continue to monitor electrolytes and will replace as needed Heme: IVC filter POD #1 Received 3U PRBC Hgb now 9.2 Will recheck to make sure it is stable Maintain Hgb >8 No overt bleeding seen- but Guaiac + CT abd/pelvis to check for extra luminal bleed Continue to monitor for overt bleeding No anticoaguation at this time for PE and DVT due to GI bleed ID: Maintain normothermia afebrile, no leukocytosis Endo: Continue to maintain euvolemia and euglycemia. GI ppx: Protonix DVT ppx: none at this time, pt has DVT and GI bleed Case seen, discussed and reviewed with attending Joceline Yanez PGY1 <Ted Be - Last Filed: 08/24/16 17:25> Objective - Vital Signs/Intake and Output Vital Signs (last 24 hours): Temp Pulse Resp BP Pulse Ox 98 F 86 25 H 157/104 H 99 08/24/16 09:06 08/24/16 15:50 08/24/16 15:50 08/24/16 12:52 08/24/16 15:50 Intake and Output: 08/24/16 08/24/16 06:59 18:59 Intake Total 325 0 Balance 325 0 - Medications Medications: Current Medications Diphenhydramine HCl (Benadryl) 25 mg PO HS PRN PRN Reason: Insomnia Last Admin: 08/23/16 21:09 Dose: 25 mg Ferrous Sulfate (Feosol) 324 mg PO DAILY [facility] Last Admin: 08/24/16 09:27 Dose: 324 mg Losartan Potassium (Cozaar) 50 mg PO DAILY [facility] Last Admin: 08/24/16 09:27 Dose: 50 mg Metoprolol Succinate (Toprol Xl) 25 mg PO DAILY [facility] Last Admin: 08/24/16 09:25 Dose: 25 mg Pantoprazole Sodium (Protonix Ec Tab) 40 mg PO ACB [facility] Last Admin: 08/24/16 07:55 Dose: 40 mg - Labs Labs: 08/24/16 14:30 08/24/16 05:20 PT 12.6 Seconds (9.9-11.8) H 08/23/16 09:05 INR 1.17 (0.93-1.08) H 08/23/16 09:05 APTT 29.4 Seconds (23.7-30.8) 08/23/16 09:05 Addendum Addendum: 08/24/16 17:20 patient was seen, examined and discussed at bedside with Dr. Delatorre. Her note reflects my exam, assessment and plan, except as below. Meds/Labs/ONE reviewed 85 yo with h/o DVT on eliquis, now female with severe anemia, leading to supply/ demand mismatch cardiac ischemia. Eliquis stopped, PRBC transfused to Hb above 10. patient is hemodynamically and respiratory igron stable, lactate is 1.0. EGD in am. Dr. Padilla--GI, Dr. Mars cardiology. IVF, NPO after midnight. Protonix drip. CT abdo/pelvis-P- ccm time 40 min
[2016-08-24] MEDS: Metoprolol Succinate 25 mg XL Tab PO SCH (09:25)
[2016-08-24] MEDS ORDERED: Non Formulary Medication (Ferrous Sulfate [Feosol] 325 MG) PO SCH (10:00)
[2016-08-24 11:26] LABS: ADD MANUAL DIFF? NO
[2016-08-24 11:29] LABS: EOS # 0.5 (0.0-0.7); EOS % 4.6 % (1.5-5.0); GRAN # 7.51 (1.4-6.5); GRAN % 73.6 % (50.0-68.0); HEMATOCRIT 28.8 % (36.0-48.0); LYMPH # 1.1 (1.2-3.4); LYMPH % 10.6 % (22.0-35.0); MEAN CORPUSCULAR HEMOGLOBIN 27.5 pg (25.0-35.0); MEAN CORPUSCULAR HGB CONC 31.9 g/dl (31.0-37.0); MEAN PLATELET VOLUME 9.4 fl (7.0-11.0); MONO % 10.2 % (1.0-6.0); PLATELET COUNT 357 10^3/uL (120.0-450.0); RED CELL DISTRIBUTION WIDTH 15.5 % (11.5-14.5); WHITE BLOOD COUNT 10.2 10^3/ul (4.5-11.0)
--- NOTE | 2016-08-24 11:47 | PN ---
DATE: 08/24/2016 GI FOLLOWUP NOTE Seen and examined at the bedside this morning. No acute overnight events reported. The patient milady es any nausea, vomiting, hematemesis, or bleeding per rectum. No complaints of shortness of breath o r chest pain. The patient does still complain of weakness, but with some improvement. The patient i s status post a total of 3 units of packed RBCs. VITAL SIGNS: Temperature is 98. Blood pressure is 161/82, pulse 91, respirations 20. LABORATORY DATA: WBC is 9.0, hemoglobin 7.8, hematocrit 24.7, platelets of 395. Sodium 137, K 3.8. BUN is 18, creatinine 0.7. Total bilirubin 0.6, AST 29, ALT 28. Alkaline phosphatase is 70. PHYSICAL EXAMINATION: HEENT: Sclerae are anicteric. NECK: Supple. CARDIAC: S1, S2. LUNGS: With decreased breath sounds at the bases, but good aeration. No rales or wheeze. ABDOMEN: With bowel sounds, soft. No tenderness on palpation. No rebound or guarding. EXTREMITIES: No edema. NEUROLOGIC: Awake, alert, oriented. SKIN: Warm and dry. 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 The patient had some neurological changes. Code stroke was called. The patient was then found to have severe anemia, hemoglobin of 5, status post s o far 3 units of packed RBC. Other comorbidity is history of GI bleed. The patient has history of a rteriovenous malformation status post clips, history of peripheral vascular disease, status post sten t, hypertension, hyperlipidemia. PLAN: Continue clear liquid diet, and continue to monitor CBC. The patient is on Protonix p.o. juana y. She is also on iron supplement. The patient will be n.p.o. after midnight for endoscopy in the a .m. We will continue to follow closely. Labs in the a.m. We will check again CMP, CBC, PT, and PTT in the a.m. The patient was seen and case discussed with Dr. Padilla. Awaiting a call back from [facility] GI doctor, Dr. Livingston. Pura BILLINGSLEY cc: [id number] TT: 08/24/2016 11:47:17 Confirmation # [id number] Dictation # [id number] jn
--- NOTE | 2016-08-24 12:03 | CP.PCM.PN ---
<TamClauKoSarah - Last Filed: 08/24/16 11:59> Subjective - Date & Time of Evaluation Date of Evaluation: 08/24/16 Time of Evaluation: 11:59 - Subjective Subjective: Surgery: Dr. Deleon Patient observed in ICU overnight. Patient states she feels much better than yesterday. Per nursing no acute events overnight. Patient status post 3 units PRBC. Objective - Vital Signs/Intake and Output Vital Signs (last 24 hours): Temp Pulse Resp BP Pulse Ox 98 F 91 H 20 161/82 H 100 08/24/16 09:06 08/24/16 09:25 08/24/16 09:06 08/24/16 09:25 08/24/16 08:00 Intake and Output: 08/24/16 08/24/16 06:59 18:59 Intake Total 325 0 Balance 325 0 - Medications Medications: Current Medications Diphenhydramine HCl (Benadryl) 25 mg PO HS PRN PRN Reason: Insomnia Last Admin: 08/23/16 21:09 Dose: 25 mg Ferrous Sulfate (Feosol) 324 mg PO DAILY [facility] Last Admin: 08/24/16 09:27 Dose: 324 mg Losartan Potassium (Cozaar) 50 mg PO DAILY [facility] Last Admin: 08/24/16 09:27 Dose: 50 mg Metoprolol Succinate (Toprol Xl) 25 mg PO DAILY [facility] Last Admin: 08/24/16 09:25 Dose: 25 mg Pantoprazole Sodium (Protonix Ec Tab) 40 mg PO ACB [facility] Last Admin: 08/24/16 07:55 Dose: 40 mg - Labs Labs: 08/24/16 10:30 08/24/16 05:20 PT 12.6 Seconds (9.9-11.8) H 08/23/16 09:05 INR 1.17 (0.93-1.08) H 08/23/16 09:05 APTT 29.4 Seconds (23.7-30.8) 08/23/16 09:05 - Constitutional Appears: Non-toxic, No Acute Distress, Chronically Ill - Head Exam Head Exam: ATRAUMATIC, NORMOCEPHALIC - Eye Exam Eye Exam: EOMI - ENT Exam ENT Exam: Mucous Membranes Moist - Respiratory Exam Respiratory Exam: NORMAL BREATHING PATTERN. absent: Respiratory Distress - Cardiovascular Exam Cardiovascular Exam: REGULAR RHYTHM. absent: Tachycardia - GI/Abdominal Exam GI & Abdominal Exam: Soft. absent: Distended, Tenderness - Extremities Exam Additional comments: left groin site from IVC filter placement: dressing CDI no hematoma - Neurological Exam Neurological Exam: Alert, Awake - Psychiatric Exam Psychiatric exam: Normal Affect, Normal Mood - Skin Skin Exam: Dry, Normal Color, Warm Assessment and Plan - Assessment and Plan (Free Text) Assessment: 85 y/o female w/ PE and DVT s/p IVC filter placement POD1 with anemia most likely 2/2 GI bleed from history of gastric AVMs s/p 3 units PRBC w/ appropriate response Plan: -can change groin dressing POD2, gauze and island -transfuse prn, monitor Hgb and for bleeding -overall clinical status stable and improving -anticoagulation per primary and GI recs -no further surgical intervention at this time -d/w Dr. Deleon AKdesiree PGY1 <Elio Deleon - Last Filed: 08/24/16 16:35> Objective - Vital Signs/Intake and Output Vital Signs (last 24 hours): Temp Pulse Resp BP Pulse Ox 98 F 86 25 H 157/104 H 99 08/24/16 09:06 08/24/16 15:50 08/24/16 15:50 08/24/16 12:52 08/24/16 15:50 Intake and Output: 08/24/16 08/24/16 06:59 18:59 Intake Total 325 0 Balance 325 0 - Medications Medications: Current Medications Diphenhydramine HCl (Benadryl) 25 mg PO HS PRN PRN Reason: Insomnia Last Admin: 08/23/16 21:09 Dose: 25 mg Ferrous Sulfate (Feosol) 324 mg PO DAILY [facility] Last Admin: 08/24/16 09:27 Dose: 324 mg Losartan Potassium (Cozaar) 50 mg PO DAILY [facility] Last Admin: 08/24/16 09:27 Dose: 50 mg Metoprolol Succinate (Toprol Xl) 25 mg PO DAILY [facility] Last Admin: 08/24/16 09:25 Dose: 25 mg Pantoprazole Sodium (Protonix Ec Tab) 40 mg PO ACB [facility] Last Admin: 08/24/16 07:55 Dose: 40 mg - Labs Labs: 08/24/16 14:30 08/24/16 05:20 PT 12.6 Seconds (9.9-11.8) H 08/23/16 09:05 INR 1.17 (0.93-1.08) H 08/23/16 09:05 APTT 29.4 Seconds (23.7-30.8) 08/23/16 09:05 Assessment and Plan - Assessment and Plan (Free Text) Plan: Patient was seen, evaluated and examined by me. I agree with the assessment and plan as per the resident's note.
[2016-08-24 14:54] LABS: ADD MANUAL DIFF? NO
[2016-08-24 15:04] LABS: BASO # 0.09 K/mm3 (0.0-2.0); BASO % 0.8 % (0.0-3.0); EOS # 0.6 (0.0-0.7); EOS % 5.1 % (1.5-5.0); GRAN # 8.56 (1.4-6.5); GRAN % 77.2 % (50.0-68.0); HEMATOCRIT 29.9 % (36.0-48.0); LYMPH % 8.6 % (22.0-35.0); MEAN CELL VOLUME 85.9 fL (80.0-105.0); MEAN CORPUSCULAR HEMOGLOBIN 27.3 pg (25.0-35.0); MEAN CORPUSCULAR HGB CONC 31.8 g/dl (31.0-37.0); MEAN PLATELET VOLUME 9.8 fl (7.0-11.0); MONO # 0.9 (0.1-0.6); MONO % 8.3 % (1.0-6.0); PLATELET COUNT 342 10^3/uL (120.0-450.0); RED CELL DISTRIBUTION WIDTH 15.8 % (11.5-14.5); WHITE BLOOD COUNT 11.1 10^3/ul (4.5-11.0)
--- NOTE | 2016-08-24 18:01 | CT ---
PROCEDURE: CT Abdomen and Pelvis without intravenous contrast HISTORY: Anemia. R/o bleed COMPARISON: None. TECHNIQUE: Technique. Unenhanced study. Neither oral nor intravenous contrast administered. Sensitivity and specificity for acute inflammatory processes limited by the absence of oral and intravenous contrast. Radiation dose: Total exam DLP = 659.23 mGy-cm. This CT exam was performed using one or more of the following dose reduction techniques: Automated exposure control, adjustment of the mA and/or kV according to patient size, and/or use of iterative reconstruction technique. FINDINGS: LOWER THORAX: Increasing right pleural effusion and compressive atelectasis compared to the prior CT of the thorax 08/20/2016. LIVER: Unremarkable. No gross lesion or ductal dilatation. GALLBLADDER AND BILE DUCTS: Unremarkable. PANCREAS: Unremarkable. No gross lesion or ductal dilatation. SPLEEN: Unremarkable. ADRENALS: Unremarkable. No mass. KIDNEYS AND URETERS: Right kidney: Vascular calcifications, small parenchymal calcifications. No suspicious masses. Left kidney: Asymmetric cortical atrophy likely from infarction, remote. Additional small hyperdense cysts and normal cysts. Elective followup recommended. VASCULATURE: Unremarkable. No aortic aneurysm. BOWEL: Unremarkable. No obstruction. No gross mural thickening. Diverticulosis without an acute inflammatory component or other associated pathologic process. APPENDIX: Unremarkable. Normal appendix. PERITONEUM: Unremarkable. No free fluid. No free air. LYMPH NODES: Unremarkable. No enlarged lymph nodes. BLADDER: Unremarkable. REPRODUCTIVE: Unremarkable. BONES: No acute fracture. OTHER FINDINGS: None. IMPRESSION: No evidence of free fluid, free air, confined hematoma. Increasing pleural effusions and associated consolidative changes. Diverticulosis, severe in the sigmoid region without an acute inflammatory component.
--- NOTE | 2016-08-24 21:03 | PN ---
DATE: 08/24/2016 SUBJECTIVE: The patient is resting in bed with O2 via nasal cannula, stating that she has no complai nts of increased shortness of breath, no cough, no wheezing, no chest congestion at this time. She s tates that she has been getting units of blood and the one that is running and hanging now should be her 4th unit of blood. She states that she is not having any bloody bowel movements. No nausea, vom iting. No diarrhea, no abdominal pain, no chest pain. She also states that she is having a GI proce dure in the morning. She feels that they are going to go down and look at her stomach. PHYSICAL EXAMINATION: VITAL SIGNS: Her temperature is 97.8, her pulse is 86, respirations are 21, and BP is 156/90, O2 sat uration is 99%. HEENT: Head is atraumatic, normocephalic. Eyes reactive to light. Ears, nose and throat seemed to be within normal limits. NECK: Supple. No JVD, no thyroid enlargement, no lymph nodes. CARDIOVASCULAR: Heart has a regular rate and rhythm. Normal S1, S2. LUNGS: Reveal decreased breath sounds at the right base. ABDOMEN: Soft, nontender. No organomegaly noted. GENITALIA AND RECTAL: Deferred. MUSCULOSKELETAL: No joint deformities. EXTREMITIES: Reveal trace lower extremity edema. NEUROLOGIC: She has weakness on the right side. LABORATORY DATA: As far as her laboratories are concerned, her white count is 11.1, hemoglobin is 9. 5, hematocrit 29.9 with platelets of 342,000. The patient's sodium is 137, potassium 3.8, chloride 1 04, CO2 of 29 with a BUN of 18, creatinine of 0.7, and a glucose of 91. Note that the patient's trop onins are elevated at 0.80. IMPRESSION: The patient has a history of hypertension, hyperlipidemia, peripheral vascular disease s tatus post stents, gastrointestinal bleed with arteriovenous malformation status post clips and cereb rovascular accident with residual right-sided weakness. She was admitted this time with pneumonia an d has a right-sided pleural effusion. The patient has bilateral deep venous thrombosis as well as sa ddle pulmonary embolus. She has severe anemia and is being transfused with packed red blood cells. Note that the patient had an inferior vena cava filter placed yesterday. PLAN: We will continue with O2 via nasal cannula. Continue with aggressive pulmonary toilet. We wi ll follow chest x-ray for the pleural effusion and right lower lobe infiltrate. The patient is getti ng packed red blood cells via IV transfusion and hemoglobin will be followed. She is scheduled for E GD by Dr. Patton in the morning and cardiology is following as well. We will continue with ifeanyi de dios pulmonary toilet, follow closely and treat aggressively along with the other consultants and the primary care doctor. Braden Calvin MD cc: [id number] TT: 08/24/2016 21:02:36 Confirmation # [id number] Dictation # [id number]
--- NOTE | 2016-08-24 22:26 | PN ---
DATE: 08/24/2016 ADDENDUM SUBJECTIVE: This patient was seen and evaluated earlier today. This is an addendum to the GI progre ss report dictated by Pura Galvan APN. I discussed with the hat maker and Dr. Dutta and also with patient and family at length. 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 The patient did have 2 endoscopies done in the past. One was in October where the AVMs were treated. The repeat endoscopy done did not reveal any bleeding source at that time. Upper endoscopy, colono scopy. Had small polyps and no AVMs. The patient did have a significant drop in blood count at this time, while on Plavix and also on Eliquis. The patient does have pulmonary embolism, status post IVC filter placement. PHYSICAL EXAMINATION: VITAL SIGNS: Remained stable. ABDOMEN: Soft. There is no tenderness. PLAN: The patient was receiving 3rd unit of packed RBC in the morning when I saw the patient. Subse quently, she is due to have another unit transfused. We will continue to closely follow up the hemogl obin and hematocrit. The plan is to consider upper GI endoscopy in a.m. to further evaluate. The tiarra carrera has been on Plavix. We will continue to closely follow up her care and suggest further managem ent based on the clinical course. Ronny Padilla MD cc: [id number] TT: 08/24/2016 22:26:05 Confirmation # [id number] Dictation # [id number]
[2016-08-25 07:00] LABS: ADD MANUAL DIFF? NO
[2016-08-25 07:22] LABS: BASO % 0.7 % (0.0-3.0); EOS # 0.6 (0.0-0.7); EOS % 4.5 % (1.5-5.0); GRAN # 10.67 (1.4-6.5); GRAN % 79.3 % (50.0-68.0); HEMATOCRIT 34.4 % (36.0-48.0); LYMPH # 0.9 (1.2-3.4); MEAN CELL VOLUME 87.1 fL (80.0-105.0); MEAN CORPUSCULAR HEMOGLOBIN 28.1 pg (25.0-35.0); MEAN CORPUSCULAR HGB CONC 32.3 g/dl (31.0-37.0); MEAN PLATELET VOLUME 10.1 fl (7.0-11.0); MONO # 1.2 (0.1-0.6); MONO % 8.5 % (1.0-6.0); PLATELET COUNT 372 10^3/uL (120.0-450.0); RED CELL DISTRIBUTION WIDTH 15.6 % (11.5-14.5); WHITE BLOOD COUNT 13.5 10^3/ul (4.5-11.0)
[2016-08-25 07:23] LABS: INR 1.1 (0.93-1.08); PARTIAL THROMBOPLASTIN TIME 27.4 Seconds (23.7-30.8)
[2016-08-25 07:37] LABS: ALB/GLOB RATIO 1.1 (1.1-1.8); ALKALINE PHOSPHATASE 81 U/L (38-133); ALT/SGPT 26 U/L (7-56); AST/SGOT 29 U/L (15-39); BILIRUBIN,TOTAL 0.8 mg/dL (0.2-1.3); BLOOD UREA NITROGEN 12 mg/dL (7-21); CALCIUM 8.9 mg/dL (8.4-10.5); CARBON DIOXIDE 26 mmol/L (21-33); CHLORIDE 103 mmol/L (95-110); GFR AFRICAN-AMERICAN > 60; GLUCOSE,RANDOM 74 mg/dL (70-110); SODIUM 136 mmol/L (132-148); TOTAL PROTEIN 5.8 g/dL (5.8-8.3)
[2016-08-25] MEDS: Pantoprazole 40 mg EC Tab PO SCH (07:59)
--- NOTE | 2016-08-25 08:25 | CP.PCM.PN ---
Subjective - Date & Time of Evaluation Date of Evaluation: 08/25/16 Time of Evaluation: 08:22 - Subjective Subjective: Surgery: Dr. Pride Patient doing well today. Reports overall feeling better. She denies any bleeding episodes. She states she isnt sleeping well. Per nursing report patient has small black stool overnight. Patient NPO for EGD today. Objective - Vital Signs/Intake and Output Vital Signs (last 24 hours): Temp Pulse Resp BP Pulse Ox 98.4 F 83 24 158/83 H 97 08/25/16 04:00 08/25/16 07:40 08/25/16 07:40 08/25/16 04:00 08/25/16 07:40 Intake and Output: 08/25/16 08/25/16 06:59 18:59 Intake Total 250 Balance 250 - Medications Medications: Current Medications Diphenhydramine HCl (Benadryl) 25 mg PO HS PRN PRN Reason: Insomnia Last Admin: 08/24/16 22:01 Dose: 25 mg Ferrous Sulfate (Feosol) 324 mg PO DAILY [facility] Last Admin: 08/24/16 09:27 Dose: 324 mg Losartan Potassium (Cozaar) 50 mg PO DAILY [facility] Last Admin: 08/24/16 09:27 Dose: 50 mg Metoprolol Succinate (Toprol Xl) 25 mg PO DAILY [facility] Last Admin: 08/24/16 09:25 Dose: 25 mg Pantoprazole Sodium (Protonix Ec Tab) 40 mg PO ACB [facility] Last Admin: 08/25/16 07:59 Dose: Not Given - Labs Labs: 08/25/16 05:40 08/25/16 05:40 PT 11.9 Seconds (9.9-11.8) H 08/25/16 05:40 INR 1.10 (0.93-1.08) H 08/25/16 05:40 APTT 27.4 Seconds (23.7-30.8) 08/25/16 05:40 - Constitutional Appears: Non-toxic, No Acute Distress, Chronically Ill - Head Exam Head Exam: ATRAUMATIC, NORMOCEPHALIC - Eye Exam Eye Exam: EOMI - ENT Exam ENT Exam: Mucous Membranes Moist - Respiratory Exam Respiratory Exam: NORMAL BREATHING PATTERN. absent: Respiratory Distress - Cardiovascular Exam Cardiovascular Exam: REGULAR RHYTHM. absent: Tachycardia - GI/Abdominal Exam GI & Abdominal Exam: Soft. absent: Distended, Tenderness - Extremities Exam Additional comments: Left groin site dressing CDI, removed today. Insertion site from IVCF healed w/ o hematoma Assessment and Plan - Assessment and Plan (Free Text) Assessment: 85 y/o female w/ PE and bilateral DVT s/p IVCF placement POD2 w/ acute worsening anemia most likely 2/2 GI bleeding s/p PRBC transfusion w/ appropriate response of Hgb Plan: -Hgb stable today -patient NPO for EGD -recs per GI, will f/u EGD results -no further surgical intervention at this time -further recs per Dr. Adrienne Solis PGY1
[2016-08-25] MEDS: Metoprolol Succinate 25 mg XL Tab PO SCH (09:29)
--- NOTE | 2016-08-25 10:20 | CARD ---
APPROVED REPORT EKG Measurement Heart [id number] IN [id number] [id number] <Conclusion> Normal sinus rhythm Voltage criteria for left ventricular hypertrophy LAD Improved repolarization changes c/w ECG 08/23/16
--- NOTE | 2016-08-25 11:52 | CP.PCM.PN ---
<Shantelle Yanez - Last Filed: 08/25/16 11:48> Subjective - Date & Time of Evaluation Date of Evaluation: 08/25/16 Time of Evaluation: 11:49 - Subjective Subjective: ICU Progress Note Patient seen and examined at bedside. There were no acute overnight events. Patient reports she did not sleep well last night. She denies having any pain, n /v/d, numbness/tingling, CP, SOB. Objective - Vital Signs/Intake and Output Vital Signs (last 24 hours): Temp Pulse Resp BP Pulse Ox 98.4 F 83 24 158/83 H 97 08/25/16 04:00 08/25/16 07:40 08/25/16 07:40 08/25/16 04:00 08/25/16 07:40 Intake and Output: 08/25/16 08/25/16 06:59 18:59 Intake Total 250 Balance 250 - Medications Medications: Current Medications Diphenhydramine HCl (Benadryl) 25 mg PO HS PRN PRN Reason: Insomnia Last Admin: 08/24/16 22:01 Dose: 25 mg Ferrous Sulfate (Feosol) 324 mg PO DAILY [facility] Last Admin: 08/25/16 09:29 Dose: Not Given Losartan Potassium (Cozaar) 50 mg PO DAILY [facility] Last Admin: 08/25/16 09:29 Dose: 50 mg Metoprolol Succinate (Toprol Xl) 25 mg PO DAILY [facility] Last Admin: 08/25/16 09:29 Dose: 25 mg Pantoprazole Sodium (Protonix Ec Tab) 40 mg PO ACB [facility] Last Admin: 08/25/16 07:59 Dose: Not Given - Labs Labs: 08/25/16 05:40 08/25/16 05:40 PT 11.9 Seconds (9.9-11.8) H 08/25/16 05:40 INR 1.10 (0.93-1.08) H 08/25/16 05:40 APTT 27.4 Seconds (23.7-30.8) 08/25/16 05:40 - Constitutional Appears: No Acute Distress - Head Exam Head Exam: ATRAUMATIC, NORMAL INSPECTION, NORMOCEPHALIC - Eye Exam Eye Exam: Normal appearance, PERRL Pupil Exam: NORMAL ACCOMODATION, PERRL - ENT Exam ENT Exam: Mucous Membranes Moist - Neck Exam Neck Exam: Full ROM, Normal Inspection - Respiratory Exam Respiratory Exam: Clear to Ausculation Bilateral, NORMAL BREATHING PATTERN. absent: Rales, Rhonchi, Wheezes - Cardiovascular Exam Cardiovascular Exam: REGULAR RHYTHM, +S1, +S2. absent: Gallop, Rubs, Murmur - GI/Abdominal Exam GI & Abdominal Exam: Soft, Normal Bowel Sounds. absent: Rigid, Tenderness, Mass , Rebound - Extremities Exam Extremities Exam: Normal Inspection - Neurological Exam Neurological Exam: Alert, Awake, CN II-XII Intact, Oriented x3 Neuro motor strength exam: Left Upper Extremity: 5, Right Upper Extremity: 4, Left Lower Extremity: 5, Right Lower Extremity: 5 - Psychiatric Exam Psychiatric exam: Normal Affect, Normal Mood - Skin Skin Exam: Dry, Intact, Normal Color, Warm Assessment and Plan - Assessment and Plan (Free Text) Assessment: This is an 85Y F with PMH HTN, HLD, PVD s/p stent on L, GI bleed secondary to AVM s/p clips, CVA with residual R sided weakness who was admitted for pneumonia , found to have bilateral DVT and saddle PE in TCU. Code stroke was called. Pt transferred to ED and found to be anemic with Hgb of 5. She received 4U PRBC, Hgb now stable. She also had a PICC line and IVC filter placed. Plan: Neuro: Continue Neuro checks CV: Continue BP meds Maintain MAP >65 Echo done on 08/22- showed EF 55%, no evidence of R heart strain Troponin noted to be positive at 0.8, but trending down EKG showed NSR, LVH and L axis deviation Cardiology consulted Resp: Saddle PE, no SOB Continue NC--Maintain sp02>90% GI: GI consulted- EGD planned for this AM CT abd/pelvis showed no evidence of bleed or hematoma, increasing pleural effusions were seen as well as diverticulosis Lactic acid 1.0 Protonix Renal: Continue to monitor electrolytes and will replace as needed Heme: IVC filter POD #2 Received 4U PRBC Hgb stable at 11.1 Maintain Hgb >10 Plan is to restart anticoagulation after EGD results ID: afebrile, mild leukocytosis Continue to maintain normothermia Endo: Continue to maintain euvolemia and euglycemia. GI ppx: Protonix DVT ppx: none at this time, pt has PE and GI bleed Case seen, discussed and reviewed with attending Joceline Yanez PGY1 <Ted Be - Last Filed: 08/25/16 15:43> Objective - Vital Signs/Intake and Output Vital Signs (last 24 hours): Temp Pulse Resp BP Pulse Ox 98.4 F 83 24 158/83 H 97 08/25/16 04:00 08/25/16 07:40 08/25/16 07:40 08/25/16 04:00 08/25/16 07:40 Intake and Output: 08/25/16 08/25/16 06:59 18:59 Intake Total 250 Balance 250 - Medications Medications: Current Medications Diphenhydramine HCl (Benadryl) 25 mg PO HS PRN PRN Reason: Insomnia Last Admin: 08/24/16 22:01 Dose: 25 mg Ferrous Sulfate (Feosol) 324 mg PO DAILY [facility] Last Admin: 08/25/16 09:29 Dose: Not Given Losartan Potassium (Cozaar) 50 mg PO DAILY [facility] Last Admin: 08/25/16 09:29 Dose: 50 mg Metoprolol Succinate (Toprol Xl) 25 mg PO DAILY [facility] Last Admin: 08/25/16 09:29 Dose: 25 mg Pantoprazole Sodium (Protonix Ec Tab) 40 mg PO ACB [facility] Last Admin: 08/25/16 07:59 Dose: Not Given - Labs Labs: 08/25/16 05:40 08/25/16 05:40 PT 11.9 Seconds (9.9-11.8) H 08/25/16 05:40 INR 1.10 (0.93-1.08) H 08/25/16 05:40 APTT 27.4 Seconds (23.7-30.8) 08/25/16 05:40 Addendum Addendum: 08/25/16 15:39 patient was seen, examined and discussed at bedside with Dr. Yanez. Her note reflects my exam, assessment and plan, except as below. meds/Labs/ONE reviewed 85 yo with recent PE on AC and IVC filter and GI AVMs related bleeding in the past, came with severe anemia, got PRBC transfused and no more signs of bleeding. Troponin is trending down and likely related to recent RV startin/PE. Mismatch cardiac ischemia is possible too. Unlikely primary coronary event. patient will be going for EGD and once hemostasis confirmed will be restarted on TAC for recent PE. Patient is hemodynamically and respiratory giron stable. ccm time 40 min
--- NOTE | 2016-08-25 12:17 | CON ---
DATE: 08/25/2016 HISTORY OF PRESENT ILLNESS: The patient is an 85-year-old woman with a recent TIA and CVA who presen ts with an acute pulmonary embolism and was found to have a saddle embolus. However, the patient's past medical history is complicated by GI bleeding secondary to AV malformatio ns which were treated at [facility] in the past. She is free of cardiac disease. No chest pain. Positive shortness of breath. She does suffer from hypertension without diabetes mellitus. SOCIAL HISTORY: No smoking history. REVIEW OF SYSTEMS: A 14-point review of systems is free of cardiac symptomatology. PHYSICAL EXAMINATION: VITAL SIGNS: The blood pressure is 158/83, heart rate is in the 80s. NECK: Negative JVD. LUNGS: Without rales. HEART: Reveals S1, S2. EXTREMITIES: Without edema. EKG shows no acute changes. LABORATORY DATA: Hemoglobin is 11.1 today. The troponins are 0.68, BUN and creatinine are unremarka ble. IMPRESSION: 1. Acute pulmonary embolism. 2. Status post filter placement because of history of gastrointestinal bleed. 3. History of arteriovenous malformation, bleeding from the stomach. 4. History of recent cerebrovascular accident. 5. Hypertension. Given these findings, I would recommend that the patient undergo urgent upper GI endoscopy to rule ou t active bleeding. If the patient is not actively bleeding, the patient should be placed on full ant icoagulation. I will discuss with Dr. Dutta about changing her Plavix to either low-dose aspirin or to hold off antiplatelets for now. Wayne Mars MD cc: [id number] TT: 08/25/2016 12:16:47 Confirmation # [id number] Dictation # [id number]
[2016-08-25] MEDS ORDERED: Propofol 10 mg/ml Inj (20 ML) ONE (16:14)
--- NOTE | 2016-08-25 19:04 | PN ---
DATE: 08/25/2016 SUBJECTIVE: The patient is an 85-year-old who resides in [place], was referred because of low hemoglobin of 5, received 3 blood transfusions, had inferior vena cava filter placed. The patient mtz s significant past medical history of CVA with right-sided weakness. She also has history of GI blee d in the remote past. At that point, she said she had 3 clips placed in her stomach. She is also be ing treated for pneumonia. PHYSICAL EXAMINATION: GENERAL: She is awake and alert and oriented, n.p.o. VITAL SIGNS: She is afebrile, pulse 92, respirations 16, blood pressure 170/78. LUNGS: Bilateral fair airflow. No rhonchi or crackle. HEART: S1, S2 audible. ABDOMEN: Soft, nontender, no rebound, no guarding. NEUROLOGIC: The patient is awake and alert, able to communicate. EXTREMITIES: Bilateral legs, no edema. LABORATORY: WBC 13.5, hemoglobin 11, hematocrit 34, platelet 372. PT 11.9 and INR 1.10. Chemistry: Sodium 136, potassium 4.0, chloride 103, CO2 of 26, BUN 12, creatinine 0.6, blood sugar 74. LFTs a re within normal limits. Troponin 0.68. ASSESSMENT: 1. Blood loss anemia secondary to upper gastrointestinal source. 2. Pulmonary embolism. 3. Status post inferior vena cava filter placement. 4. History of arteriovenous malformation in her stomach and status post clipping in the remote past. 5. Recent cerebrovascular accident with right hemiparesis. 6. Hypertension. PLAN: The patient is going to have endoscopy today. Currently, she is on heparin. She is on losart an. She is on iron sulfate and Protonix. She will remain on liquid diet. Will follow up her CBC an d CMP in a.m. Hoang Tarango MD cc: [phone] TT: 08/25/2016 19:04:00 Confirmation # [id number] Dictation # [id number] ln
--- NOTE | 2016-08-25 22:59 | PN ---
DATE: 08/25/2016 SUBJECTIVE: This patient was seen and evaluated earlier today, did not have any further episodes of bleeding. The patient did receive total of 4 units of packed RBC. Her hemoglobin went up to 11 gram s. The patient had elevated troponin levels. Had a detailed discussion with Dr. Mars today. Also d iscussed with the doctor gate watchman. On examination the patient was afebrile. The patient did have an elevated troponin today. PHYSICAL EXAMINATION: VITAL SIGNS: Stable. Temperature is afebrile, pulse 89 per minute, respirations 21, O2 saturation 9 3%, blood pressure 158/96. HEENT: Atraumatic, anicteric. NECK: Supple. HEART: S1, S2 heard. LUNGS: Bilateral air entry present. ABDOMEN: Soft. There is no tenderness. EXTREMITIES: No cyanosis, no clubbing, no edema. LABORATORY DATA: Hemoglobin 11.1, hematocrit 34.4, WBC 13.5, platelets 372. Chemistry is essentiall y unremarkable except the troponin level elevated to 0.68. 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 The patient's hemoglobin dropped t o 5.6 and received a total of 4 units of packed RBCs, improved count, now stable. The patient did mtz ve dark bowel movements. Stool for occult blood positive. Had a detailed discussion with the patien t's family and also gate watchman and nanny/household manager and informed consent was obtained from the patient a nd the patient underwent upper GI endoscopy. Upper GI endoscopy showed multiple angiodysplasias; 2 i n the stomach and 3 in the duodenum. All were treated with argon plasma coagulation. Lavage of the site after BICAP treatment did not reveal any bleeding. The patient tolerated the procedure well. A fter that the patient sent back to the floor. RECOMMENDATIONS: 1. Followup of the hemoglobin and hematocrit. 2. Continue the Protonix 40 mg daily. The patient is also on Plavix which was not stopped. The patient was on Eliquis and the last dose wa s more than 2 days ago. Close followup of the hemoglobin, hematocrit. If needed, the patient can be resumed on IV heparin after 24-48 hours based on the clinical course. Thank you very much for allowing us to participate in the care of the patient. Ronny Padilla MD cc: [phone] TT: 08/25/2016 22:58:01 Confirmation # [id number] Dictation # [id number] jn
[2016-08-26] MEDS ORDERED: Acetaminophen 650mg/20.3ml solution UD PO ONE (01:09)
[2016-08-26 06:24] LABS: ADD MANUAL DIFF? NO
[2016-08-26 06:40] LABS: BASO # 0.07 K/mm3 (0.0-2.0); BASO % 0.5 % (0.0-3.0); EOS # 0.5 (0.0-0.7); EOS % 3.5 % (1.5-5.0); GRAN % 80.7 % (50.0-68.0); HEMATOCRIT 34.7 % (36.0-48.0); LYMPH # 0.8 (1.2-3.4); LYMPH % 6.5 % (22.0-35.0); MEAN CELL VOLUME 87.8 fL (80.0-105.0); MEAN CORPUSCULAR HEMOGLOBIN 27.8 pg (25.0-35.0); MEAN CORPUSCULAR HGB CONC 31.7 g/dl (31.0-37.0); MEAN PLATELET VOLUME 10.1 fl (7.0-11.0); MONO # 1.1 (0.1-0.6); MONO % 8.8 % (1.0-6.0); PLATELET COUNT 336 10^3/uL (120.0-450.0); RED CELL DISTRIBUTION WIDTH 15.7 % (11.5-14.5)
[2016-08-26 06:50] LABS: ALKALINE PHOSPHATASE 81 U/L (38-133); ALT/SGPT 24 U/L (7-56); AST/SGOT 25 U/L (15-39); BILIRUBIN,TOTAL 0.8 mg/dL (0.2-1.3); BLOOD UREA NITROGEN 12 mg/dL (7-21); CALCIUM 8.8 mg/dL (8.4-10.5); CARBON DIOXIDE 29 mmol/L (21-33); CHLORIDE 102 mmol/L (98-107); GFR AFRICAN-AMERICAN > 60; GLUCOSE,RANDOM 78 mg/dL (70-110); POTASSIUM 3.5 mmol/L (3.6-5.0); SODIUM 138 mmol/L (132-148); TOTAL PROTEIN 5.8 g/dL (5.8-8.3)
--- NOTE | 2016-08-26 09:22 | PN ---
DATE: 08/26/2016 SUBJECTIVE: The patient is awake and alert. No complaints of shortness of breath or increased cough or congestion. She is very comfortable, no abdominal pain. No diarrhea. The patient is on O2 via nasal cannula. PHYSICAL EXAMINATION: VITAL SIGNS: Note that her temperature is 98.4, her pulse is 74, respirations 15 and BP is 152/77, O 2 saturation is 97% on nasal cannula. HEENT: Head is atraumatic, normocephalic. Eyes reactive to light. Ears, nose and throat seem to be within normal limits. NECK: Supple. No JVD, no thyroid enlargement, no lymph nodes. CARDIOVASCULAR: Heart has a regular rate and rhythm. Normal S1, S2. LUNGS: Reveal mild decreased breath sounds at the right base. ABDOMEN: Soft, nontender, normal bowel sounds. GENITALIA AND RECTAL: Deferred. MUSCULOSKELETAL: No joint deformities. EXTREMITIES: Reveal no edema. NEUROLOGIC: She seemed to be grossly intact. LABORATORY DATA: Her white count is 13.0, hemoglobin is 11.0, hematocrit 34.7 with platelets of 336, 000. Her sodium is 138, potassium 3.5, chloride 102, CO2 of 29 with a BUN of 12, creatinine of 0.7, and a glucose of 78. IMPRESSION: This patient has pulmonary embolus with bilateral lower extremity deep venous thrombosis that required inferior vena caval filter placement. She has anemia secondary to upper gastrointesti nal bleed, has a history of arteriovenous malformations. 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 PLAN: We will continue with O2 via nasal cannula. Continue with aggressive pulmonary toilet and we will continue with her present medications. Follow closely and treat aggressively along with the oth er consultants and the primary care doctor. Braden Calvin MD cc: [id number] TT: 08/26/2016 09:21:19 Confirmation # [id number] Dictation # [id number] tn
[2016-08-26] MEDS: Metoprolol Succinate 25 mg XL Tab PO SCH (09:34)
[2016-08-26] MEDS: Pantoprazole 40 mg EC Tab PO SCH (09:35)
--- NOTE | 2016-08-26 10:24 | CP.PCM.PN ---
Subjective - Date & Time of Evaluation Date of Evaluation: 08/26/16 Time of Evaluation: 07:00 - Subjective Subjective: Surgery: Dr. Deleon Pt seen and examined. No acute overnight events. States she feels well and denies any abdominal pain or shortness of breath. Pt is tolerating CLD and denies N/V, F/C. Objective - Vital Signs/Intake and Output Vital Signs (last 24 hours): Temp Pulse Resp BP Pulse Ox 98.4 F 83 15 152/77 H 97 08/26/16 08:00 08/26/16 09:35 08/26/16 08:00 08/26/16 09:35 08/26/16 08:00 - Medications Medications: Current Medications Diphenhydramine HCl (Benadryl) 25 mg PO HS PRN PRN Reason: Insomnia Last Admin: 08/25/16 21:17 Dose: 25 mg Ferrous Sulfate (Feosol) 324 mg PO DAILY [facility] Last Admin: 08/26/16 09:35 Dose: 324 mg Losartan Potassium (Cozaar) 50 mg PO DAILY [facility] Last Admin: 08/26/16 09:35 Dose: 50 mg Metoprolol Succinate (Toprol Xl) 25 mg PO DAILY [facility] Last Admin: 08/26/16 09:34 Dose: 25 mg Pantoprazole Sodium (Protonix Ec Tab) 40 mg PO ACB [facility] Last Admin: 08/26/16 09:35 Dose: 40 mg - Labs Labs: 08/26/16 05:40 08/26/16 05:40 PT 11.9 Seconds (9.9-11.8) H 08/25/16 05:40 INR 1.10 (0.93-1.08) H 08/25/16 05:40 APTT 27.4 Seconds (23.7-30.8) 08/25/16 05:40 - Constitutional Appears: Well, No Acute Distress - Head Exam Head Exam: ATRAUMATIC, NORMOCEPHALIC - Eye Exam Eye Exam: Normal appearance - ENT Exam ENT Exam: Mucous Membranes Moist - Respiratory Exam Respiratory Exam: NORMAL BREATHING PATTERN - Cardiovascular Exam Cardiovascular Exam: RRR - GI/Abdominal Exam GI & Abdominal Exam: Soft. absent: Distended, Tenderness - Extremities Exam Extremities Exam: absent: Tenderness - Neurological Exam Neurological Exam: Alert, Awake, Oriented x3 - Skin Skin Exam: Dry, Warm Assessment and Plan - Assessment and Plan (Free Text) Assessment: 85F with PE s/p IVC filter placement; POD#3 and s/p EGD yesterday Plan: - pt's H/H remains stable - EGD showed some angiodysplastic lesions in the stomach but no active bleeding - no further surgical intervention needed at this time - d/w Dr. Adrienne Batista, PGY-2 Surgery
--- NOTE | 2016-08-26 11:51 | PN ---
DATE: 08/26/2016 SUBJECTIVE: The patient is asymptomatic. She tolerated endoscopy well. PHYSICAL EXAMINATION: VITAL SIGNS: Blood pressure is 152/77, the heart rate is in the 80s. NECK: Negative JVD. LUNGS: Without rales. HEART: Reveals S1, S2. EXTREMITIES: Without edema. LABORATORY DATA: The hemoglobin remains stable at 11. Chemistries: Potassium is 3.5. IMPRESSION: 1. Status post acute pulmonary embolism. 2. History of recent cerebrovascular accident. 3. History of gastrointestinal bleed. 4. Anemia, which remains stable. Dr. Padilla's note is appreciated. PLAN: We will start the patient back on anticoagulation 24-48 hours from now. Wayne Mars MD cc: [phone] TT: 08/26/2016 11:50:37 Confirmation # [id number] Dictation # [id number] tn
--- NOTE | 2016-08-26 12:12 | PN ---
DATE: 08/26/2016 The patient is an 85-year-old, seen and examined, sitting in chair, tolerating clear liquid. No abdo qi pain, no black stools. No shortness of breath, no chest pain. PHYSICAL EXAMINATION: VITAL SIGNS: She is afebrile, pulse 75, respirations 15, blood pressure 152/77. LUNGS: Bilateral fair airflow, no rhonchi or crackle. HEART: S1, S2 audible. ABDOMEN: Soft, nontender, no rebound, no guarding. NEUROLOGIC: She is awake and alert, communicative, moves all extremities. EXTREMITIES: Bilateral legs, no edema. LABORATORY: WBC 13, hemoglobin 11, hematocrit 34.7, platelets 336. Chemistry: Sodium 138, potassiu m 3.5, chloride 102, CO2 29, BUN 12, creatinine 0.7, blood sugar of 78. Albumin is 2.9. ASSESSMENT: 1. Probably blood loss anemia with hemoglobin of 6.5 upon arrival. 2. Pulmonary embolism, status post inferior vena cava filter placement. 3. Status post endoscopy. Endoscopy showing angiodysplastic lesion in the stomach, but no active bl eeding. 4. History of cerebrovascular accident with right hemiparesis. 5. Hypertension. 6. Hypokalemia. PLAN: The patient received 4 blood transfusions. She is holding her hemoglobin. She is hemodynamic ally stable. Can be transferred to med/surg floor if okay with other market consultant. Follow up her CBC and CMP in a.m. Diet can be advanced if it is okay with Dr. Padilla. Hoang Tarango MD cc: [phone] TT: 08/26/2016 12:11:29 Confirmation # [id number] Dictation # [id number] ulysses
[2016-08-26] MEDS ORDERED: Phenol Topical 1.4% Throat Spray (180 ml) MT PRN (15:51)
--- NOTE | 2016-08-26 15:51 | CP.PCM.PN ---
Subjective - Date & Time of Evaluation Date of Evaluation: 08/26/16 Time of Evaluation: 15:46 - Subjective Subjective: S: Pt stating that she felt sore throat from yesterday EGD. Hb stable, s/p 4u pRBC. O: VSS. HEENT: mucosal pale. No bleeding in oropharynx. R ear external canal narrow. L ear TM wayne with normal light reflex. A: Sore throat from EGD P: chloraseptic throat spray tylenol PRN Objective - Vital Signs/Intake and Output Vital Signs (last 24 hours): Temp Pulse Resp BP Pulse Ox 98 F 75 18 163/88 H 92 L 08/26/16 12:00 08/26/16 12:00 08/26/16 12:00 08/26/16 12:00 08/26/16 12:00 - Medications Medications: Current Medications Diphenhydramine HCl (Benadryl) 25 mg PO HS PRN PRN Reason: Insomnia Last Admin: 08/25/16 21:17 Dose: 25 mg Ferrous Sulfate (Feosol) 324 mg PO DAILY [facility] Last Admin: 08/26/16 09:35 Dose: 324 mg Losartan Potassium (Cozaar) 50 mg PO DAILY [facility] Last Admin: 08/26/16 09:35 Dose: 50 mg Metoprolol Succinate (Toprol Xl) 25 mg PO DAILY [facility] Last Admin: 08/26/16 09:34 Dose: 25 mg Pantoprazole Sodium (Protonix Ec Tab) 40 mg PO ACB [facility] Last Admin: 08/26/16 09:35 Dose: 40 mg - Labs Labs: 08/26/16 05:40 08/26/16 05:40 PT 11.9 Seconds (9.9-11.8) H 08/25/16 05:40 INR 1.10 (0.93-1.08) H 08/25/16 05:40 APTT 27.4 Seconds (23.7-30.8) 08/25/16 05:40
--- NOTE | 2016-08-26 16:52 | PN ---
DATE: 08/26/2016 SUBJECTIVE: This patient was seen and evaluated earlier. No bleeding. The patient remains hemodyna mically stable. PHYSICAL EXAMINATION: VITAL SIGNS: Temperature is 98, pulse 75, blood pressure 163/88. HEENT: Atraumatic, anicteric. NECK: Supple. HEART: S1, S2 heard. ABDOMEN: Soft. There is no tenderness. EXTREMITIES: No edema, no cyanosis. LABORATORY DATA: Hemoglobin is 11, hematocrit 34.7, WBC 13, platelet count 336. Chemistry is essent ially unremarkable except potassium is 3.5. IMPRESSION: This 85-year-old patient initially admitted with pneumonia, found to have a PE, saddle e mbolism status post filter placement, had deep venous thrombosis bilaterally. The patient had an end oscopy done yesterday, was found to have multiple arteriovenous malformations, 2 arteriovenous malfor mations in the stomach and 3 in the duodenum that were treated with argon plasma coagulation. The pa tient was on Eliquis, which was discontinued. The patient was also on Plavix for cerebrovascular acc ident. RECOMMENDATIONS: If the hemoglobin is stable tomorrow, the patient can be started on heparin with cl ose followup of the hemoglobin and hematocrit. The patient did have a mildly elevated troponin level . He is being followed by Dr. Mars, cardiac technician. We will continue to closely follow up her care an d suggest further management based on the clinical course. Ronny Padilla MD cc: [phone] TT: 08/26/2016 16:51:57 Confirmation # [id number] Dictation # [id number] peterson
[2016-08-27 06:25] LABS: HEMATOCRIT 34.5 % (36.0-48.0); MEAN CELL VOLUME 87.8 fL (80.0-105.0); MEAN CORPUSCULAR HEMOGLOBIN 28.2 pg (25.0-35.0); MEAN CORPUSCULAR HGB CONC 32.2 g/dl (31.0-37.0); MEAN PLATELET VOLUME 9.8 fl (7.0-11.0); PLATELET COUNT 326 10^3/uL (120.0-450.0); WHITE BLOOD COUNT 15.7 10^3/ul (4.5-11.0)
[2016-08-27 06:34] LABS: ADD MANUAL DIFF? YES
[2016-08-27] MEDS: Pantoprazole 40 mg EC Tab PO SCH (07:54)
[2016-08-27 08:49] LABS: ATYPICAL LYMPHOCYTE 1 % (0.0-0.0); BAND 3 % (0-2)
[2016-08-27 08:50] LABS: HYPOCHROMIA 2+; NEUTROPHIL 89 % (50.0-70.0); PLATELET ESTIMATE NORMAL (NORMAL); TOXIC GRANULATION 1+
[2016-08-27] MEDS: Metoprolol Succinate 25 mg XL Tab PO SCH (09:05)
--- NOTE | 2016-08-27 10:16 | PN ---
DATE: 08/27/2016 PULMONARY NOTE SUBJECTIVE: The patient is awake and alert, resting in bed with O2 via nasal cannula. No complaints of increased shortness of breath, cough, wheezing, chest congestion. No fever, chills, nausea, or v omiting. No abdominal pain or diarrhea. PHYSICAL EXAMINATION: VITAL SIGNS: Her temperature is 98.6. Her pulse is 85. Respirations are 20, and BP is 158/103. HEENT: Head is atraumatic, normocephalic. Eyes are reactive to light. Ears, nose, and throat seeme d to be within normal limits. NECK: Supple. No JVD, no thyroid enlargement, no lymph nodes. CARDIOVASCULAR: Heart has regular rate and rhythm. Normal S1, S2. LUNGS: Reveal good breath sounds bilaterally. ABDOMEN: Soft, nontender, normal bowel sounds. No organomegaly noted. GENITALIA AND RECTAL: Deferred. MUSCULOSKELETAL: No joint deformities. EXTREMITIES: Reveal trace lower extremity edema. NEUROLOGIC: The patient has weakness on the right side. LABORATORY DATA: Reveal white count of 15.7. Hemoglobin is 11.1, hematocrit 34.5 with platelets of 326,000. Sodium is 138, potassium 3.5, chloride 102, CO2 of 29 with a BUN of 12, creatinine of 0.7, and glucose of 78. IMPRESSION: This patient has pulmonary embolus with bilateral lower extremity deep venous thromboses . The patient has an inferior vena cava filter placed. She has anemia secondary to a gastrointestin al bleed and a history of arteriovenous malformation. The patient has hypertension and a history of a cardiovascular accident with right-sided weakness. PLAN: We will continue with O2 via nasal cannula. Continue with aggressive pulmonary toilet. As we ll, we will continue with her present medications. I will continue to follow and treat aggressively along with the other consultants and the primary care doctor. Braden Calvin MD cc: [id number] TT: 08/27/2016 10:15:44 Confirmation # [id number] Dictation # [id number] peterson
--- NOTE | 2016-08-27 11:09 | PN ---
DATE: 08/27/2016 SUBJECTIVE: The patient has no complaints of any chest pain. She is awake and alert. She has no co mplaints of any headaches, no dizziness. PHYSICAL EXAMINATION: VITAL SIGNS: Temperature is 98.6, pulse of 94, blood pressure is 140/66, respirations 20. GENERAL: The patient comfortable, in no acute distress. HEENT: Anicteric sclerae. Moist mucosa. NECK: No JVD or adenopathy. CARDIAC: S1/S2. No murmurs. No rubs. Regular. RESPIRATORY: Clear to auscultation bilaterally. No wheezes, rales, or rhonchi. Good air entry. ABDOMEN: Bowel sounds are positive, soft, nontender, and nondistended. EXTREMITIES: No edema. Has 1+ pulses. LABORATORIES: White count of 15.7. Creatinine 0.7. ASSESSMENT: 1. Pulmonary embolism, status post inferior vena cava filter. 2. Acute anemia, status post transfusion. 3. Hypertension. 4. Hypokalemia, improved. 5. Gastric angiodysplastic lesions. 6. Cerebrovascular accident with right-sided weakness. PLAN: The patient is currently comfortable. She has had 4 units of packed red blood cells. The pat ient is on losartan for hypertension. She is on Protonix daily. She is going to continue with metop rolol. She is on a liquid diet. Her white count is elevated. I will get Dr. Mai to evaluate the patient also. Scott Zavala MD cc: [phone] TT: 08/27/2016 11:08:19 Confirmation # [id number] Dictation # [id number] en
[2016-08-27 14:50] LABS: BLOOD UREA NITROGEN 15 mg/dL (7-21); CALCIUM 9.1 mg/dL (8.4-10.5); CARBON DIOXIDE 29 mmol/L (21-33); CHLORIDE 99 mmol/L (98-107); GFR AFRICAN-AMERICAN > 60; GLUCOSE,RANDOM 141 mg/dL (70-110); POTASSIUM 3.9 mmol/L (3.6-5.0); SODIUM 134 mmol/L (132-148)
--- NOTE | 2016-08-27 15:34 | PN ---
DATE: 08/27/2016 The patient denied shortness of breath, although she is still hypoxic with activity. PHYSICAL EXAMINATION: VITAL SIGNS: Blood pressure is 90s. NECK: Negative JVD. LUNGS: Without rales. HEART: Revealed S1, S2. EXTREMITIES: . Hemoglobin is 11.1. Chemistries unremarkable, glucose is 141. IMPRESSION: 1. Acute pulmonary embolism. 2. History of gastrointestinal bleed. 3. Upper gastrointestinal workup shows no active bleeding from her . 3. Anemia, which is stable. 4. Prior history of cerebrovascular accident. Given these findings, we will need to discuss with neuro, pulmonary and Dr. Dutta about the right regimen for anticoagulation . If okay with GI, I still feel the patient will need long-term an ticoagulation. Wayne Mars MD cc: [phone] TT: 08/27/2016 15:33:38 Confirmation # [id number] Dictation # [id number] en
--- NOTE | 2016-08-27 16:49 | PN ---
DATE: 08/27/2016 This patient was seen and evaluated earlier. The patient on clear liquid diet, tolerating well. No complaints of any abdominal pain. No bleeding. PHYSICAL EXAMINATION: VITAL SIGNS: Temperature is 98.6, blood pressure 140/66, pulse 84, respirations 20. HEENT: Atraumatic, anicteric. NECK: Supple. HEART: S1, S2 heard. LUNGS: Bilateral air entry present. ABDOMEN: Soft. There is no tenderness. EXTREMITIES: No cyanosis, no clubbing. LABORATORY DATA: WBC count 15.7, hemoglobin 11.1, hematocrit 34.5, platelets 326. Chemistry is esse ntially unremarkable otherwise. IMPRESSION: This 85-year-old patient initially admitted with pneumonia, then found to have a pulmona ry embolism, started on Eliquis, had a significant drop in hemoglobin, status post 4 unit of transfus ion. Now, hemoglobin is stable. The patient underwent an upper gastrointestinal endoscopy and a BIC AP treatment and argon plasma treatment of 5 angiodysplasias. Presently, the hemoglobin is stable. The patient on liquid diet. Would recommend to increase the diet. Recommend, we will continue the full liquid diet. The patient has a history of status post cerebrovascular accident, was on Plavix. The patient has a large, the patient has a saddle pulmonary embolism, status post inferior vena cava filter placement. The patien t has been started, can be started on IV heparin with close monitoring of the hemoglobin and hematocr it. We will also advance the diet to full liquid diet. Will discuss with the medical team. We will discuss with Dr. Zavala regarding this. Thank you very much for allowing us to participate in the care of the patient. Ronny Padilla MD cc: [phone] TT: 08/27/2016 16:48:58 Confirmation # [id number] Dictation # [id number] en
[2016-08-28 07:27] LABS: ADD MANUAL DIFF? NO
[2016-08-28 07:34] LABS: BASO % 0.8 % (0.0-3.0); EOS # 0.4 (0.0-0.7); EOS % 3.3 % (1.5-5.0); GRAN # 10.47 (1.4-6.5); GRAN % 80.9 % (50.0-68.0); HEMATOCRIT 33.8 % (36.0-48.0); LYMPH # 0.8 (1.2-3.4); LYMPH % 6.3 % (22.0-35.0); MEAN CELL VOLUME 87.3 fL (80.0-105.0); MEAN CORPUSCULAR HEMOGLOBIN 27.9 pg (25.0-35.0); MEAN PLATELET VOLUME 11.3 fl (7.0-11.0); MONO # 1.1 (0.1-0.6); MONO % 8.7 % (1.0-6.0); PLATELET COUNT 289 10^3/uL (120.0-450.0); RED CELL DISTRIBUTION WIDTH 16.3 % (11.5-14.5); WHITE BLOOD COUNT 12.9 10^3/ul (4.5-11.0)
[2016-08-28 07:46] LABS: ALKALINE PHOSPHATASE 81 U/L (38-133); ALT/SGPT 28 U/L (7-56); AST/SGOT 29 U/L (15-39); BILIRUBIN,TOTAL 0.6 mg/dL (0.2-1.3); BLOOD UREA NITROGEN 17 mg/dL (7-21); CALCIUM 8.9 mg/dL (8.4-10.5); CARBON DIOXIDE 31 mmol/L (21-33); CHLORIDE 100 mmol/L (95-110); GFR AFRICAN-AMERICAN > 60; GLUCOSE,RANDOM 94 mg/dL (70-110); POTASSIUM 3.8 mmol/L (3.6-5.0); SODIUM 138 mmol/L (132-148); TOTAL PROTEIN 5.7 g/dL (5.8-8.3)
[2016-08-28] MEDS: Pantoprazole 40 mg EC Tab PO SCH (08:39)
[2016-08-28] MEDS: Metoprolol Succinate 25 mg XL Tab PO SCH (09:17)
--- NOTE | 2016-08-28 11:02 | PN ---
DATE: 08/28/2016 An 85-year-old white female status post gastrointestinal bleed, status post saddle embolism, status p ost cerebrovascular accident approximately 2 months ago with a history of gastrointestinal bleed, his tory of filter, bilateral deep venous thromboses. The patient is awake, alert, oriented x 3. There is no chest pain. There is no shortness of breath. The patient is on oxygen. She is doing physical therapy and occupational therapy. She is without complaints. PHYSICAL EXAMINATION: EXTREMITIES: Without cyanosis, clubbing or edema. HEART: Regular sinus rhythm. Discussion about restarting Plavix on this patient, doing physical therapy and possibly return to [facility] for rehab. Dylan Dutta MD cc: [phone] TT: 08/28/2016 11:01:38 Confirmation # [id number] Dictation # [id number] en
--- NOTE | 2016-08-28 11:16 | PN ---
DATE: 08/28/2016 The patient is asymptomatic. PHYSICAL EXAMINATION: VITAL SIGNS: Blood pressure is 150/70. The heart rate is in the 70s. NECK: Negative JVD. LUNGS: Without rales. HEART: Reveals S1, S2. EXTREMITIES: Without edema. LABORATORIES: Hemoglobin is stable at 10.8. Chemistries are unremarkable. IMPRESSION: 1. Acute pulmonary embolism. 2. History of cerebrovascular accident. 3. Anemia. 4. Documented history of a gastrointestinal bleed. 5. Carotid disease. PLAN: Given these findings, the patient will need a combination of antiplatelets and possible antico agulation. A risk/benefit analysis is difficult but it needs to be done to see which combination of medication she should be on. Wayne Mars MD cc: [phone] TT: 08/28/2016 11:15:26 Confirmation # [id number] Dictation # [id number] mn
--- NOTE | 2016-08-28 16:22 | PN ---
DATE: 08/28/2016 Seen and examined at the bedside this morning. The patient denies any nausea, vomiting, or abdominal pain. Denies any chest pain. No reports of any overt GI bleed. The patient's diet has been advanced. VITAL SIGNS: Temperature is 98.0, blood pressure 150/70, pulse 77, respirations 18. LABORATORIES: Today, WBC is 12.9, H and H is 10.8 and 33.8, platelets is 289. Sodium 138, K 3.8, BUN is 17, creatinine is 0.9. LFTs are within normal limits. PHYSICAL EXAMINATION: HEENT: Sclera is anicteric. NECK: Supple. CARDIAC: S1, S2. LUNG SOUNDS: With decreased breath sounds, but good air entry, no rales or wheeze. ABDOMEN: With bowel sounds, soft. No tenderness on palpation. PHYSICAL EXAMINATION: HEENT: Sclera is anicteric. NECK: Supple. CARDIAC: S1, S2. LUNG SOUNDS: With decreased breath sounds, but good air entry, no rales or wheeze. ABDOMEN: With bowel sounds, soft, nontender. No rebound or guarding. ASSESSMENT: Saddle pulmonary embolism, severe anemia, status post total 4unit of packed red blood cells, history of cerebrovascular accident. The patient had esophagogastroduodenoscopy, found to have angiodysplasia, status post BICAP and argon treatments. So far, hemoglobin has been stable. The patient is also status post inferior vena cava filter. PLAN: Continue diet as tolerated. Spoke with patient sister is going to bring her food, but discussed this should be a low fat diet, heart healthy diet. Continue PPI. The patient is on iron supplement. The patient did receive a dose of Plavix yesterday. From GI point of view, the patient can start on IV heparin with close monitoring of H and H gastrointestinal bleed. Speak to medical and cardiology team. The patient was seen and case discussed with Dr. Padilla. Pura Mandy JOSE CRUZ cc: [id number] TT: 08/28/2016 14:25:53 Confirmation # [id number] Dictation # [id number] en YUND
--- NOTE | 2016-08-28 18:46 | PN ---
DATE: 08/28/2016 ADDENDUM This is an addendum to the GI progress report dictated by Pura Galvan APN. The patient is now tolerating the diet. No complaints of abdominal pain. On examination, abdomen is soft. There is no tenderness. Hemoglobin 10.8, remains stable. IMPRESSION: Status post BICAP treatment of gastric and duodenal arteriovenous malformation. History of gastrointestinal bleeding, status post 4 units of packed RBC transfusion, history of deep venous thrombosis, pulmonary embolism, history of status post cerebrovascular accident. had a detaile d discussion with Dr. Dutta. He was very concerned about the risk of starting anticoagulation i n her setting with the CVA. PLAN: To start on Plavix and follow up the hemoglobin and hematocrit. We will continue to closely f andrew up her care and suggest further management and recommendation based on the clinical course. Ronny Padilla MD cc: [id number] TT: 08/28/2016 18:45:37 Confirmation # [id number] Dictation # [id number] mn
--- NOTE | 2016-08-28 21:09 | PN ---
DATE: 08/28/2016 SUBJECTIVE: The patient is resting in bed with oxygen via nasal cannula. No complaints of shortness of breath, cough, wheezing, chest congestion, stating that she is feeling fairly good tonight. PHYSICAL EXAMINATION: VITAL SIGNS: Her temperature is 98, pulse is 87, respirations are 19, and BP is 184/77. SKIN: Warm and dry. HEENT: Head is atraumatic, normocephalic. Eyes reactive to light. Ears, nose and throat seemed to be within normal limits. NECK: Supple. No JVD, no thyroid enlargement, no lymph nodes. HEART: Has a regular rate and rhythm. Normal S1, S2. LUNGS: Reveal good breath sounds bilaterally. ABDOMEN: Soft, nontender, normal bowel sounds. No organomegaly noted. GENITALIA AND RECTAL: Deferred. MUSCULOSKELETAL: No joint deformities. EXTREMITIES: Reveal trace lower extremity edema. NEUROLOGIC: She seemed to be grossly intact. LABORATORY DATA: As far as her white count is concerned, it is 12.9, hemoglobin is 10.8, hematocrit 33.8 with platelets of 289,000. Her sodium is 138, potassium 3.8, chloride 100, CO2 of 31 with a BUN of 17, creatinine 0.9 and a glucose of 94. IMPRESSION: The patient has pulmonary embolism, bilateral lower extremity deep venous thromboses. S he has an inferior vena cava filter in place. She has anemia secondary to gastrointestinal bleed, an d a history of arteriovenous malformation. The patient has hypertension, cardiovascular disease and right-sided weakness. PLAN: We will continue with O2 via nasal cannula. Continue with aggressive pulmonary toilet. Luis Daniel camargo with her other medications and will follow and treat along with the other consultants and the [facility] doctor. Braden Calvin MD cc: [id number] TT: 08/28/2016 21:08:32 Confirmation # [id number] Dictation # [id number] ulysses
[2016-08-29] MEDS: Pantoprazole 40 mg EC Tab PO SCH (07:57)
[2016-08-29 08:11] LABS: ADD MANUAL DIFF? NO
[2016-08-29 08:19] LABS: BASO # 0.09 K/mm3 (0.0-2.0); BASO % 0.8 % (0.0-3.0); EOS # 0.5 (0.0-0.7); EOS % 4.6 % (1.5-5.0); GRAN # 8.96 (1.4-6.5); GRAN % 77.6 % (50.0-68.0); HEMATOCRIT 32.5 % (36.0-48.0); LYMPH # 0.9 (1.2-3.4); LYMPH % 7.7 % (22.0-35.0); MEAN CELL VOLUME 87.6 fL (80.0-105.0); MEAN CORPUSCULAR HEMOGLOBIN 28.3 pg (25.0-35.0); MEAN CORPUSCULAR HGB CONC 32.3 g/dl (31.0-37.0); MEAN PLATELET VOLUME 10.4 fl (7.0-11.0); MONO # 1.1 (0.1-0.6); MONO % 9.3 % (1.0-6.0); PLATELET COUNT 323 10^3/uL (120.0-450.0); RED CELL DISTRIBUTION WIDTH 16.3 % (11.5-14.5); WHITE BLOOD COUNT 11.5 10^3/ul (4.5-11.0)
[2016-08-29] MEDS: Metoprolol Succinate 25 mg XL Tab PO SCH (10:14)
--- NOTE | 2016-08-29 10:20 | PN ---
DATE: 08/29/2016 SUBJECTIVE: An 85-year-old white female admitted status post gastrointestinal bleed, saddle embolism , deep venous thrombosis, filter, gastrointestinal bleed with angiodysplasia, clipping. Coagulation done by Dr. Padilla. The patient is stable. She is restarted on Plavix. She has a recent CVA and carotid disease. She has a filter. She is doing well. Vital signs are stable. REVIEW OF SYSTEMS: A 12-point review of systems is unremarkable. There is no further gastrointestinal bleeding at this point. Her H and H are stable. The patient wi ll be kept on Protonix, Flagyl, Protonix, Plavix, blood pressure medication. Vital signs are stable. The patient will continue on her course. She will be transferred to subacute rehab to continue her rehabilitation. Dylan Dutta MD cc: [id number] TT: 08/29/2016 10:19:14 Confirmation # [id number] Dictation # [id number] ulysses
--- NOTE | 2016-08-29 11:47 | PN ---
DATE: 08/29/2016 Seen and examined at the bedside earlier this morning. The patient with no acute overnight events. The patient with no present complaints. Denies any nausea, vomiting, or abdominal pain. No reports of any overt GI bleed. VITAL SIGNS: Temperature is 98.6, blood pressure is 133/68, pulse 75, respirations 20. LABORATORY DATA: WBC is 11.5, H and H 10.5 and 32.5, platelets are 323. PHYSICAL EXAMINATION: HEENT: Sclerae are anicteric. NECK: Supple. CARDIAC: S1, S2. LUNGS: With decreased breath sounds, but good air entry, no rales or wheeze. ABDOMEN: With bowel sounds, soft, nontender. No rebound or guarding. EXTREMITIES: No edema. NEUROLOGIC: Awake, alert, and oriented. ASSESSMENT: Severe anemia, status post total of 4 units of packed RBCs, saddle pulmonary embolism, h istory of cerebrovascular accident, status post endoscopy, found to have angiodysplasia with BICAP an d Argon treatment. The patient also status post inferior vena caval filter. PLAN: The patient is back on her Plavix. She was started on yesterday. Continue PPI. The patient is on iron supplements and continue to monitor H and H. The patient is going to be discharged home to follow up with PCP outpatient. The patient also has her own GI in [place], Dr. Livingston. The patient w as seen and case discussed with Dr. Padilla. Pura BILLINGSLEY cc: [id number] TT: 08/29/2016 11:46:50 Confirmation # [id number] Dictation # [id number] tn
--- NOTE | 2016-08-29 14:01 | PN ---
DATE: 08/29/2016 The patient is asymptomatic, in bed. PHYSICAL EXAMINATION: VITAL SIGNS: Blood pressure 133/68. The heart rate is in the 70s. NECK: Negative JVD. LUNGS: Without rales. HEART: Revealed S1, S2. EXTREMITIES: Without edema. LABORATORIES: Hemoglobin is 10.5, white count is 11.5. Chemistries are unremarkable. IMPRESSION: 1. Status post pulmonary embolism. 2. Recent cerebrovascular accident. 3. Documented carotid disease. 4. History of gastrointestinal bleed. Given these findings, after an extensive discussion on risks, benefits of anticoagulation with antipl atelet therapy, it was decided that the patient would be best treated with just Plavix. I have discu ssed the risks, benefits with the patient and the family in detail. The patient is going to [facility] for rehab. Wayne Mars MD cc: [id number] TT: 08/29/2016 14:00:07 Confirmation # [id number] Dictation # [id number] cristhian
--- NOTE | 2016-08-29 14:25 | PN ---
DATE: 08/29/2016 SUBJECTIVE: The patient is resting in bed, O2 via nasal cannula. No complaints of shortness of juan th, cough, wheezing, chest congestion. Family is at bedside. The patient is scheduled for discharge to [facility] in the morning. PHYSICAL EXAMINATION: VITAL SIGNS: Note that temperature is 98.4, pulse is 78, respirations are 18, and BP is 175/85. SKIN: Warm and dry. HEAD: Atraumatic, normocephalic. EYES: Reactive to light. EARS, NOSE AND THROAT: Seem to be within normal limits. NECK: Supple. No JVD, no thyroid enlargement, no lymph nodes. HEART: Has a regular rate and rhythm. Normal S1, S2. LUNGS: Reveal good breath sounds for the most part. Mild decrease at the bases. ABDOMEN: Soft, nontender. Decreased bowel sounds. GENITALIA AND RECTAL: Deferred. MUSCULOSKELETAL: No joint deformities. EXTREMITIES: Reveal trace lower extremity edema. NEUROLOGIC: She does have some weakness on the left side. LABORATORY DATA: Reveal a white count of 11.5, hemoglobin is 10.5, hematocrit 32.5 with platelets of 323,000. Sodium is 138, potassium 3.8, chloride 100, CO2 of 31 with a BUN of 17, creatinine of 0.9, and a glucose of 94. IMPRESSION: This patient has pulmonary embolism, bilateral lower extremity deep venous thrombosis. Has an inferior vena cava filter placed. Also has anemia secondary to gastrointestinal bleed with a past history of arteriovenous malformation. The patient also has hypertension, cerebrovascular accid ent and extremity weakness. PLAN: Will continue with O2 via nasal cannula as well as aggressive pulmonary toilet. The patient i s getting oxygen via nasal cannula and bronchodilators. She is scheduled for transfer to [facility] in the morning for rehab. Braden Calvin MD cc: [id number] TT: 08/29/2016 14:25:22 Confirmation # [id number] Dictation # [id number] mn
--- NOTE | 2016-08-30 00:37 | CP.PCM.PN ---
Subjective - Date & Time of Evaluation Date of Evaluation: 08/30/16 Time of Evaluation: 00:33 - Subjective Subjective: S:Requests a sleeping pill. States that she was able to sleep after she had benadry. A physician came to see neighbour patient , talked loudly and woke her up, now can not fall asleep. Has no other complaints now. Denies sob, Chest Pain. ROS :Neg except as mentioned above. Medical record was reviewed. Home medication review shows that she takes xanax sometimes. O: Last Vital Signs 3 Temp 98.9 F 08/29/16 17:54 Pulse 89 08/29/16 17:54 Resp 18 08/29/16 17:54 BP 174/77 H 08/29/16 17:54 Pulse Ox 95 08/28/16 05:22 Awake, alert, not in distress. LUNGS:Normal breathing pattern. NEURO: Speech normal. A:Adjustment insomnia. P:Xanax 0.25 mg PO now. Objective - Vital Signs/Intake and Output Vital Signs (last 24 hours): Temp Pulse Resp BP Pulse Ox 98.9 F 89 18 174/77 H 95 08/29/16 17:54 08/29/16 17:54 08/29/16 17:54 08/29/16 17:54 08/28/16 05:22 Intake and Output: 08/29/16 08/30/16 18:59 06:59 Intake Total 240 Output Total 400 Balance -160 - Medications Medications: Current Medications Acetaminophen (Tylenol 325mg Tab) 650 mg PO Q6H PRN PRN Reason: Fever >100.4 F Last Admin: 08/29/16 20:48 Dose: 650 mg Clopidogrel Bisulfate (Plavix) 75 mg PO DAILY [facility] Last Admin: 08/29/16 10:14 Dose: 75 mg Diphenhydramine HCl (Benadryl) 25 mg PO HS PRN PRN Reason: Insomnia Last Admin: 08/29/16 20:49 Dose: 25 mg Ferrous Sulfate (Feosol) 324 mg PO DAILY [facility] Last Admin: 08/29/16 10:14 Dose: 324 mg Losartan Potassium (Cozaar) 50 mg PO DAILY [facility] Last Admin: 08/29/16 10:14 Dose: 50 mg Metoprolol Succinate (Toprol Xl) 25 mg PO DAILY [facility] Last Admin: 08/29/16 10:14 Dose: 25 mg Pantoprazole Sodium (Protonix Ec Tab) 40 mg PO ACB KEVIN Last Admin: 08/29/16 07:57 Dose: 40 mg Phenol/Menthol (Phenaseptic 1.4% Throat [place]) 0.1 ml MT Q2H PRN PRN Reason: Sore Throat Last Admin: 08/28/16 14:27 Dose: 1 spr - Labs Labs: 08/29/16 07:51 08/28/16 07:00 PT 11.9 Seconds (9.9-11.8) H 08/25/16 05:40 INR 1.10 (0.93-1.08) H 08/25/16 05:40 APTT 27.4 Seconds (23.7-30.8) 08/25/16 05:40
[2016-08-30 06:37] VITALS: RESP 18; TEMP 98.1; O2SAT 97
[2016-08-30] MEDS: Pantoprazole 40 mg EC Tab PO SCH (08:22)
--- NOTE | 2016-08-30 09:00 | DS ---
An 85-year-old white female being discharged to [facility] for rehabilitation. History of CVA in the past, history of saddle embolism in the lung with bilateral DVT, status post filter, status p ost GI bleed, angiodysplasia, status post coagulation by Dr. Padilla. The patient is currently on Plavix. She does have history of a recent stroke and a left carotid dise ase approximately 90%. Vital signs are stable. The patient is doing physical therapy and occupational therapy. Her hemoglo bin has held since her last endoscopy with coagulation by Dr. Padilla. She is using oxygen, but she is not physically short of breath. She will be discharged to [facility] in improved condition on Plavi x and Protonix and also on oxygen. FINAL DISCHARGE DIAGNOSES: Pneumonia, ____, saddle embolism of the lung, bilateral deep venous throm bosis, acute gastrointestinal bleed, angiodysplasia of the upper intestine, anemia of blood loss, and hypertension. Dylan Dutta MD cc: [id number] TT: 08/30/2016 08:59:46 jn
[2016-08-30] MEDS: Metoprolol Succinate 25 mg XL Tab PO SCH (09:20)
[2016-08-30 09:26] VITALS: BP 183/75; PULSE 68
== END 2016-08-30 11:41 | DRG 356 ==
LOC: ED 07:54 → ERH 09:43 → CCU 14:58 → 2RNO 08-27 16:19
PROVIDERS: ADMIT Internal Medicine; ATTEND Internal Medicine
PROC: 06H03DZ Insertion of Intraluminal Device into Inferior Vena Cava, Percutaneous Approach (ICD-10-PCS; principal; 2016-08-23)
PROC: 30233N1 Transfusion of Nonautologous Red Blood Cells into Peripheral Vein, Percutaneous Approach (ICD-10-PCS; 2016-08-23)
PROC: 02HV33Z Insertion of Infusion Device into Superior Vena Cava, Percutaneous Approach (ICD-10-PCS; 2016-08-23)
PROC: 0D598ZZ Destruction of Duodenum, Via Natural or Artificial Opening Endoscopic (ICD-10-PCS; 2016-08-25)
PROC: 0D568ZZ Destruction of Stomach, Via Natural or Artificial Opening Endoscopic (ICD-10-PCS; 2016-08-25)
DX: K31.811 Angiodysplasia of stomach and duodenum with bleeding (principal); I26.92 Saddle embolus of pulmonary artery without acute cor pulmonale; I82.433 Acute embolism and thrombosis of popliteal vein, bilateral; I82.413 Acute embolism and thrombosis of femoral vein, bilateral; D62 Acute posthemorrhagic anemia; J18.9 Pneumonia, unspecified organism; I69.351 Hemiplegia and hemiparesis following cerebral infarction affecting right dominant side; J90 Pleural effusion, not elsewhere classified; I73.9 Peripheral vascular disease, unspecified; I10 Essential (primary) hypertension; E78.5 Hyperlipidemia, unspecified; E87.6 Hypokalemia; J02.9 Acute pharyngitis, unspecified; F51.02 Adjustment insomnia; Z95.820 Peripheral vascular angioplasty status with implants and grafts

== ENCOUNTER 2017-04-03 10:56 | Inpatient (IN) | payer MEDICARE, BC ==
[2017-04-03 11:05] VITALS: BMI 19.6
[2017-04-03] MEDS ORDERED: Morphine 2 mg/ml ISec IVP STA (11:31)
--- NOTE | 2017-04-03 11:43 | ED PDOC ---
Arrival/HPI - General Time Seen by Provider: 04/03/17 11:07 Historian: Patient, Family (Sister) - History of Present Illness Narrative History of Present Illness (Text): 04/03/17 11:28 A 86 year old female, whose past medical history includes hypertension, anemia, GERD, CVA with residual right sided weakness and anxiety, presents to the emergency department complaining of left sided rib pain since yesterday. History supplemented by patients sister at bedside. Sister reports patient was recently seen by PMD a few days ago for shortness of breath and instructed to go to [facility] Emergency Room. Patient was found to have a low hemoglobin count and received 2 transfusions. Patient reports her pain began yesterday prior to discharge. She notes her pain worsens with movement and taking deep breaths. Patient notes constipation and loss of appetite but denies any fever, chills, nausea, vomiting, abdominal pain, chest pain, shortness of breath, rash or any other complaints at this time. PMD: Dr. Dutta Time/Duration: Other (yesterday) Symptom Course: Unchanged Quality: Other Context: Other Past Medical History - Provider Review Nursing Documentation Reviewed: Yes - Cardiac Hx Cardiac Disorders: Yes Hx Hypertension: Yes - Pulmonary Hx Respiratory Disorders: No - Neurological HX Cerebrovascular Accident: Yes - HEENT Hx HEENT Disorder: Yes ([place] uses b/l hearing aids which are home) Hx Cataracts: Yes (b/l sx) - Renal Hx Renal Disorder: No - Endocrine/Metabolic Hx Endocrine Disorders: No - Hematological/Oncological Hx Blood Transfusions: Yes Hx Blood Transfusion Reaction: No - Integumentary Hx Dermatological Disorder: Yes Hx Basal Cell Carcinoma: (uncertain) - Musculoskeletal/Rheumatological Hx Musculoskeletal Disorders: No Hx Falls: No - Gastrointestinal Hx Gastrointestinal Disorders: Yes Hx Gastroesophageal Reflux: Yes - Genitourinary/Gynecological Hx Genitourinary Disorders: Yes Hx Incontinence: Yes - Psychiatric Hx Psychophysiologic Disorder: Yes Hx Anxiety: Yes Hx Substance Use: No - Surgical History Hx Carotid Endarterectomy: Yes - Anesthesia Hx Anesthesia Reactions: No Hx Malignant Hyperthermia: No Family/Social History - Physician Review Nursing Documentation Reviewed: Yes Family/Social History: No Known Family HX Smoking Status: Never Smoked Hx Alcohol Use: No Hx Substance Use: No Allergies/Home Meds Allergies/Adverse Reactions: Allergies No Known Allergies Allergy (Verified 08/18/16 19:48) Home Medications: Home Meds Medication Instructions Recorded Confirmed Alprazolam [Xanax] 0.25 mg PO PRN PRN 08/15/16 04/03/17 Ferrous Sulfate [Feosol] 325 mg PO DAILY 08/15/16 04/03/17 Losartan [Cozaar] 50 mg PO DAILY 08/15/16 04/03/17 Review of Systems - Review of Systems Constitutional: Fatigue. absent: Weight Change, Fevers, Night Sweats Eyes: absent: Vision Changes ENT: absent: Hearing Changes Respiratory: Other (pain with deep breaths). absent: SOB Cardiovascular: absent: Chest Pain, Edema, Calf Pain Gastrointestinal: Constipation, Appetite Changes. absent: Abdominal Pain, Nausea, Vomiting Genitourinary Female: Urine Output Changes. absent: Dysuria, Frequency Musculoskeletal: Back Pain, Other (Left sided rib pain). absent: Neck Pain Skin: Other. absent: Rash, Pruritis, Skin Lesions Neurological: absent: Dizziness, Focal Weakness Endocrine: absent: Polyuria Hemo/Lymphatic: absent: Easy Bleeding Psychiatric: Anxiety Physical Exam - Physical Exam Narrative Physical Exam (Text): Head: Atraumatic. Normocephalic. Eyes: PERRL. EOMI. Conjunctivae are not pale. ENT: Mucous membranes are moist and intact. Oropharynx is clear and symmetric. Neck: Supple. Full ROM. No JVD. No lymphadenopathy. Cardiovascular: Regular rate. Regular rhythm. No murmurs, rubs, or gallops. Distal pulses are 2+ and symmetric. Pulmonary/Chest: No evidence of respiratory distress. Clear to auscultation bilaterally. No wheezing, rales or rhonchi. Abdominal: Soft and non-distended. There is no tenderness. No rebound, guarding, or rigidity. No organomegaly. Good bowel sounds. Back: No CVA tenderness. Extremities: No edema. No cyanosis. No clubbing. Full range of motion in all extremities. No calf tenderness. Skin: Skin is warm and dry. No petechiae. No purpura. Neurological: Alert, awake, and oriented to person, place, time, and situation. Normal speech. Psychiatric: Good eye contact. Normal interaction, affect, and behavior. Vital Signs Reviewed: Yes Vital Signs Temp Pulse Resp BP Pulse Ox 04/03/17 17:25 96 H 18 152/74 H 98 04/03/17 16:56 86 18 124/71 99 04/03/17 14:21 95 H 18 126/77 98 04/03/17 14:20 95 H 18 126/77 100 04/03/17 13:00 84 18 142/68 96 04/03/17 11:04 97.8 F 90 18 146/70 95 Temperature: Afebrile Blood Pressure: Normal Pulse: Regular Respiratory Rate: Normal Appearance: Positive for: Non-Toxic, Uncomfortable Pain Distress: Mild Mental Status: Positive for: Alert and Oriented X 3, other - Systems Exam Head: Present: Atraumatic Pupils: Present: PERRL Extroacular Muscles: Present: EOMI Conjunctiva: No: Injected Mouth: Present: Dry Pharnyx: No: ERYTHEMA Nose (Internal): Present: Normal Inspection Neck: No: Meningeal Signs Respiratory/Chest: Present: Clear to Auscultation, Tender to Palpation (left anterior and left lateral chest wall with no crepitus or erythema). No: Accessory Muscle Use, Decreased Breath Sounds Abdomen: Present: Tenderness (mild left lupper quadrant pain, no splenomegaly or pulsatile masses). No: Rebound, Guarding Rectal: No: Gross Blood Back: Present: Paraspinal Tenderness Upper Extremity: Present: Other (pain to left shoulder with ROM). No: Cyanosis Lower Extremity: No: Edema Neurological: Present: Speech Normal, Motor Func Grossly Intact (at her baseline , she has had previous stroke deficits are not new), Normal Sensory Function Skin: Present: Pale, Other (no vesicular rash noted on chest abdomen or back) Psychiatric: Present: Alert, Normal Insight, Normal Concentration Medical Decision Making ED Course and Treatment: 04/03/17 11:28 Impression: A 86 year old female with left sided rib pain. Patient recently seen at [facility] for shortness of breath and low Hgb count. Differential Diagnosis included but are not limited to: PE vs. PNA vs. Rib strain vs. Shingles Plan: -- Angio chest CT -- Chest xray -- EKG -- Labs -- Blood and Urine culture -- Urinalysis -- Influenza A B stat -- Morphine -- Reassess and disposition Progress Notes: [facility] with recent admission for GI bleeding require blood transfusions per patient and sisters report, at an outside institution. She has states she is too weak to ambulate since discharge yesterday. She is neurologically intact. No headache or fever or change in mental status. She complains of pain to left side that is palpable and worse with ROM but also deep breaths. No hypoxia noted , she denies respiratory distress. No calf pain or swelling. Currently no active bleeding although patient not urinating or moving bowels like she typically does. Abdomen is nondistended however and no nausea or vomiting or food intolerance noted. No suprapubic distension or tenderness. I have discussed the side effects of the medications prior to administration with the patient, who expresses understanding. Report Date : 04/03/2017 12:53:22 Procedure: Chest xray Dictator : Wayne Mazariegos MD IMPRESSION: No infiltrate. Possible small right pleural effusion. 04/03/17 16:23 On re-evaluation, patient reports her pain has improved after receiving morphine although she states it is persistent. Patient is not in respiratory distress, her saturation is 100 on 2L nasal cannula. On re-examination, abdomen is soft non-tender. VQ scan is pending, although patient has an IVC filter. After discussing case with PMD, patient is high risk for anticoagulation given history of multiple GI bleeds requiring transfusion. Plan is to admit patient to telemetry for evaluation of chest pain and further cardiac/respiratory monitoring. Treatment plan reviewed with patient and family. VQ low probability for PE. Will advised close observation for any rash to suggest shingles but currently none. As pain persistent despite iv pain medication, case d/w Dr. Najera accepts admission to his service. Reassessment Condition: Improving,but remains with symptoms - Lab Interpretations Microbiology Results: Microbiology Results 04/03/17 12:35 Blood Blood Culture - Preliminary NO GROWTH AFTER 24 HOURS 04/03/17 12:15 Blood Blood Culture - Preliminary NO GROWTH AFTER 24 HOURS Lab Results: 04/03/17 12:35 04/03/17 12:35 Lab Results 04/03/17 13:00: Influenza Typ A,B (EIA) Negative for flu a/b 04/03/17 12:35: Sodium 136, Potassium 3.3 L, Chloride 98, Carbon Dioxide 28, Anion Gap 13, BUN 15, Creatinine 0.7, Est GFR ( Amer) > 60, Est GFR (Non- Af Amer) > 60, Random Glucose 127 H, Calcium 9.1, Total Bilirubin 0.4, AST 17, ALT 24, Alkaline Phosphatase 100, Lactate Dehydrogenase 292 L, Total Creatine Kinase < 20 L, Troponin I 0.03 D, NT-Pro-B Natriuret Pep 3170 H, Total Protein 5.8, Albumin 3.1, Globulin 2.8, Albumin/Globulin Ratio 1.1 04/03/17 12:35: PT 13.2 H, INR 1.14 H, APTT 29.6 04/03/17 12:35: WBC 10.1, RBC 3.68, Hgb 9.6 L, Hct 32.0 L, MCV 87.0, MCH 26.1, MCHC 30.0 L, RDW 16.4 H, Plt Count 384, MPV 10.0, Gran % 77.0 H, Lymph % (Auto) 8.9 L, Ponce % (Auto) 9.9 H, Eos % (Auto) 3.5, Baso % (Auto) 0.7, Gran # 7.74 H, Lymph # 0.9 L, Ponce # 1.0 H, Eos # 0.4, Baso # 0.07 I have reviewed the lab results: Yes - RAD Interpretation Radiology Orders: 04/03/17 11:29 CHEST PORTABLE [RAD] Stat 04/03/17 14:06 LUNG PERF & VENT SCAN [NM] Stat - Medication Orders Current Medication Orders: Alprazolam (Xanax) 0.25 mg PO Q8 PRN; Protocol PRN Reason: Agitation Stop: 04/10/17 16:44 Last Admin: 04/03/17 18:11 Dose: 0.25 mg Behavioural Document 04/03/17 18:11 LO (Rec: 04/03/17 18:11 [id number]) Maintenance Maintenance Dose No Nonmedicinal Nonmedicinal Interventions Redirect Therapeutic Communication Behavior Behavior for Medication: Anxiety Ferrous Sulfate (Feosol) 324 mg PO DAILY KEVIN Last Admin: 04/04/17 09:15 Dose: 324 mg Hydromorphone HCl (Dilaudid) 0.5 mg IVP Q4H PRN PRN Reason: Pain, moderate (4-7) Last Admin: 04/04/17 09:15 Dose: 0.5 mg MAR Pain Assessment Document 04/04/17 09:15 ML (Rec: 04/04/17 09:15 ML [id number]) Pain Reassessment Is this a pain reassessment? No Presence of Pain Presence of Pain Yes IVP Administration Document 04/04/17 09:15 ML (Rec: 04/04/17 09:15 ML [id number]) Charges for Administration # of IVP Administrations 1 Re-Assess: [facility] Pain Assessment Document 04/04/17 10:15 ML (Rec: 04/04/17 10:47 ML [id number]) Pain Reassessment Is this a pain reassessment? Yes Presence of Pain Presence of Pain No Losartan Potassium (Cozaar) 50 mg PO DAILY [facility] Last Admin: 04/04/17 09:15 Dose: 50 mg Methylprednisolone (Solu-Medrol) 20 mg IVP Q12 [facility] Last Admin: 04/04/17 09:15 Dose: 20 mg IVP Administration Document 04/04/17 09:15 ML (Rec: 04/04/17 09:15 ML [id number]) Charges for Administration # of IVP Administrations 1 Metoprolol Succinate (Toprol Xl) 25 mg PO DAILY [facility] Last Admin: 04/04/17 09:15 Dose: 25 mg Pantoprazole Sodium (Protonix Ec Tab) 40 mg PO ACB [facility] Last Admin: 04/04/17 09:15 Dose: 40 mg Discontinued Medications Acetaminophen (Tylenol 325mg Tab) 650 mg PO ONCE STA Stop: 04/03/17 17:18 Hydromorphone HCl (Dilaudid) 0.5 mg IVP STAT STA Stop: 04/04/17 06:15 Last Admin: 04/04/17 06:21 Dose: 0.5 mg [facility] Pain Assessment Document 04/04/17 06:21 ZARAL (Rec: 04/04/17 06:22 ZARAL ) Pain Reassessment Is this a pain reassessment? No Sleep Is patient sleeping during reassessment? No Presence of Pain Presence of Pain Yes Location Left, Right or Bilateral Left Pain Location Body Site Back IVP Administration Document 04/04/17 06:21 ZARAL (Rec: 04/04/17 06:22 ZARAL ) Charges for Administration # of IVP Administrations 1 Re-Assess: [facility] Pain Assessment Document 04/04/17 07:21 ML (Rec: 04/04/17 08:50 ML [id number]) Pain Reassessment Is this a pain reassessment? Yes Presence of Pain Presence of Pain No Morphine Sulfate (Morphine) 2 mg IVP STAT STA Stop: 04/03/17 11:32 Last Admin: 04/03/17 12:48 Dose: 2 mg MAR Pain Assessment Document 04/03/17 12:48 OCS (Rec: 04/03/17 12:49 OCS [id number]) Pain Reassessment Is this a pain reassessment? Yes Sleep Is patient sleeping during reassessment? No Presence of Pain Presence of Pain Yes Pain Scale Used Pain Scale Used Numeric Location Pain Location Body Site Generalized Description Description Constant Pain Behavior Moaning Aggravating Factors ADL's IVP Administration Document 04/03/17 12:48 OCS (Rec: 04/03/17 12:49 OCS [id number]) Charges for Administration # of IVP Administrations 1 Pneumococcal Polyvalent Vaccine (Pneumovax 23 Vaccine) 0.5 ml IM .ONCE ONE Stop: 04/03/17 23:49 Potassium Chloride (K-Dur 20 Meq Er Tab) 40 meq PO STAT STA Stop: 04/03/17 13:58 Last Admin: 04/03/17 14:17 Dose: 40 meq Potassium Chloride (K-Dur 20 Meq Er Tab) 20 meq PO ONCE ONE Stop: 04/04/17 09:42 Last Admin: 04/04/17 10:36 Dose: 20 meq - Scribe Statement The provider has reviewed the documentation as recorded by the Palma Sullivan Provider Scribe Attestation: All medical record entries made by the Wadeibangelica were at my direction and personally dictated by me. I have reviewed the chart and agree that the record accurately reflects my personal performance of the history, physical exam, medical decision making, and the department course for this patient. I have also personally directed, reviewed, and agree with the discharge instructions and disposition. Disposition/Present on Arrival - Present on Arrival Any Indicators Present on Arrival: Yes History of DVT/PE: Yes History of Uncontrolled Diabetes: No Urinary Catheter: No History Surgical Site Infection Following: None - Disposition Have Diagnosis and Disposition been Completed?: Yes Diagnosis: Chest pain, Back pain, Anemia Disposition: HOSPITALIZED Disposition Time: 13:20 Patient Plan: Admission Condition: FAIR
[2017-04-03 12:50] LABS: BASO # 0.07 K/mm3 (0.0-2.0); BASO % 0.7 % (0.0-3.0); EOS # 0.4 (0.0-0.7); EOS % 3.5 % (1.5-5.0); GRAN # 7.74 (1.4-6.5); HEMOGLOBIN 9.6 g/dL (12.0-16.0); LYMPH # 0.9 (1.2-3.4); LYMPH % 8.9 % (22.0-35.0); MEAN CORPUSCULAR HEMOGLOBIN 26.1 pg (25.0-35.0); MONO % 9.9 % (1.0-6.0); RBC 3.68 10^6/uL (3.5-6.1); RED CELL DISTRIBUTION WIDTH 16.4 % (11.5-14.5); WHITE BLOOD COUNT 10.1 10^3/ul (4.5-11.0)
[2017-04-03] MEDS ORDERED: Iodixanol 320 MG/ML 100 ML BOTTLE IV ONE (12:52)
--- NOTE | 2017-04-03 12:55 | RAD ---
HISTORY: left sided chest pain COMPARISON: 08/15/2016 FINDINGS: LUNGS: No infiltrate. Previously noted right basilar opacity has resolved. PLEURA: Minimal blunting of right costophrenic angle may reflect small residual pleural effusion or chronic pleural thickening. No evidence of left pleural effusion. No pneumothorax. CARDIOVASCULAR: Normal. OSSEOUS STRUCTURES: No significant abnormalities. VISUALIZED UPPER ABDOMEN: Normal. OTHER FINDINGS: None. IMPRESSION: No infiltrate. Possible small right pleural effusion.
[2017-04-03 13:01] LABS: ALB/GLOB RATIO 1.1 (1.1-1.8); ALBUMIN 3.1 g/dL (3.0-4.8); ALT/SGPT 24 U/L (7-56); AST/SGOT 17 U/L (14-36); BLOOD UREA NITROGEN 15 mg/dL (7-21); CALCIUM 9.1 mg/dL (8.4-10.5); GFR AFRICAN-AMERICAN > 60; GFR NON-AFRICAN AMERICAN > 60
[2017-04-03 13:03] LABS: INR 1.14 (0.93-1.08); PARTIAL THROMBOPLASTIN TIME 29.6 Seconds (25.1-36.5); PROTHROMBIN TIME 13.2 SECONDS (9.4-12.5)
[2017-04-03 13:12] LABS: B-TYPE NATRIURETIC PEPTIDE 3170 pg/mL (0-450); TROPONIN I 0.03 ng/mL
[2017-04-03] MEDS ORDERED: Potassium Chloride 20 mEq ER Tab PO STA (13:57)
--- NOTE | 2017-04-03 14:57 | CARD ---
APPROVED REPORT EKG Measurement Heart [id number] <Conclusion> Normal sinus rhythm Moderate voltage criteria for LVH, may be normal variant LAD STTW changes Electrical artifact present
--- NOTE | 2017-04-03 16:33 | NM ---
COMPARISON: [facility]2017. Single-view chest. 08/20/2016 CT thorax TECHNIQUE: 30.0 mCi technetium 99-m DTPA aerosol. 4.0 mCI technetium 99-m MAA administered intravenously. FINDINGS: VENTILATION COMPONENT: Patchy heterogeneous ventilation bilaterally with ventilation defects in the right upper lobe and left apex probably bullous disease. PERFUSION COMPONENT: Heterogeneous distribution of radionuclide. No geographic, segmental, lobar abnormalities apparent on the present examination. IMPRESSION: Low probability ventilation perfusion scan for pulmonary embolism.
[2017-04-03] MEDS: MethylPREDNISolone 40 mg Vial IVP SCH (21:10)
[2017-04-03] MEDS ORDERED: Pneumococcal 23-Valent Vaccine IM ONE (23:48)
[2017-04-03] MEDS ORDERED: Influenza Vaccine 60 mcg/0.5 mL SYR (4YR UP) IM ONE (23:48)
[2017-04-04] MEDS: HYDROmorphone 0.5 mg/0.5 ml ISec IVP PRN ×2 (03:49→09:15)
[2017-04-04] MEDS ORDERED: HYDROmorphone 0.5 mg/0.5 ml ISec IVP STA (06:14)
[2017-04-04] MEDS: Metoprolol Succinate 25 mg XL Tab PO SCH (09:15)
[2017-04-04] MEDS: Pantoprazole 40 mg EC Tab PO SCH (09:15)
[2017-04-04] MEDS: MethylPREDNISolone 40 mg Vial IVP SCH ×2 (09:15→22:09)
[2017-04-04] MEDS ORDERED: Potassium Chloride 20 mEq ER Tab PO ONE (09:41)
--- NOTE | 2017-04-04 10:03 | CARD ---
APPROVED REPORT EKG Measurement Heart [id number] <Conclusion> Normal sinus rhythm Moderate voltage criteria for LVH, may be normal variant Borderline ECG
--- NOTE | 2017-04-04 19:41 | HP ---
HISTORY OF PRESENT ILLNESS: An 86-year-old white female with a long history of carotid stenosis, saddle embolism in the past, history of major dysplasia with multiple GI bleeds in the past, recent history of GI bleed, transfused at [facility], discharged home, was readmitted with severe left-sided chest pain. CT negative. Chest x-ray normal. A V/Q scan negative. The patient had initially been on Eliquis, had bleeding. She was on Plavix, had bleeding. She is now just on aspirin. Complaining of severe pain . 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 Laboratory data showed a hemoglobin of 9.6. No other bleeding noted. PT/INR was within normal limits. LDH was 292. BNP was 3170. Negative for flu A and B. PHYSICAL EXAMINATION: VITAL SIGNS: Temperature 97.6, blood pressure 116/62. GENERAL: Shows a well-developed, thin, white female, in pain, approximately 6/10. CHEST: Clear to auscultation and percussion. HEART: Regular sinus rhythm. EXTREMITIES: Without cyanosis, clubbing, or edema. ABDOMEN: Soft. NEUROLOGIC: There is residual weakness in the right upper and right lower extremity. Neurological examination otherwise intact. PLAN: Plan is to do an echo to rule out pericardial effusion with pericarditis. Treat for heart failure and severe chest pain and chronic anemia. Dylan Dutta MD
--- NOTE | 2017-04-04 21:31 | CT ---
EXAM: CT Chest Without Intravenous Contrast EXAM DATE/TIME: 04/04/2017 6:36 PM CLINICAL HISTORY: 86 years old, female; Pain; Chest pain; Left-sided chest pain; Patient HX: HX basal cell ca; Additional info: Left chest pain; prior saddle embolus TECHNIQUE: Axial computed tomography images of the chest without intravenous contrast. All CT scans at this facility use one or more dose reduction techniques, viz.: automated exposure control; ma/kV adjustment per patient size (including targeted exams where dose is matched to indication; i.e. head); or iterative reconstruction technique. Coronal and sagittal reformatted images were created and reviewed. COMPARISON: CT - CHEST W/CONTRAST 2016-08-20 12:02 FINDINGS: Lungs and pleural spaces: Trachea and main bronchi are patent. There is centrilobular emphysematous changes. There is a poorly defined 8 x 10 mm right upper lobe nodule slightly larger than on the prior study. There is nodular pleural thickening at the right apex, unchanged. There is new nodular pleural thickening at the left apex. There is a 4.7 x 5.2 mm spiculated right upper lobe nodule slightly more so than on the prior study. There is been interval increase in size of the right middle lobe pleural-based nodule now 2 x 3.2 there is nodular pleural parenchymal scarring in the anterior right middle lobe, similar to that seen on the prior study. There is a left pleural effusion. There is left lower lobe airspace disease. Heart and vasculature: The heart is enlarged. There are coronary artery calcifications. Ascending aorta is prominent, 3.77 m in diameter. There are vascular calcifications. . Main pulmonary artery is normal in caliber. Mediastinum: There are multiple mildly enlarged mediastinal nodes.Vilma are not optimally evaluated without contrast material. Thyroid: Thyroid is heterogeneous the nodules. Bones/joints: There are degenerative changes in the osseus structures. Soft tissues: unremarkable Upper abdomen: There are no acute abnormalities in the visualized portion of the abdomen. There is mild thickening of the and left adrenal IMPRESSION: Centrilobular emphysema; multiple pleural and parenchymal nodules similar to those seen on the prior study; cardiomegaly and atherosclerotic disease; mildly prominent mediastinal nodes; now with left effusion and left lower lobe airspace disease or atelectasis Additional nonemergent findings as described above.
[2017-04-05 06:40] LABS: HEMOGLOBIN 10.4 g/dL (12.0-16.0); MEAN CELL VOLUME 88.9 fl (80.0-105.0); MEAN CORPUSCULAR HEMOGLOBIN 25.7 pg (25.0-35.0); MEAN PLATELET VOLUME 10.7 fl (7.0-11.0); RBC 4.04 10^6/uL (3.5-6.1); RED CELL DISTRIBUTION WIDTH 17.2 % (11.5-14.5); WHITE BLOOD COUNT 6.8 10^3/ul (4.5-11.0)
[2017-04-05 07:49] LABS: ALB/GLOB RATIO 1.1 (1.1-1.8); ALBUMIN 3.3 g/dL (3.0-4.8); ALT/SGPT 23 U/L (7-56); AST/SGOT 26 U/L (14-36); BLOOD UREA NITROGEN 16 mg/dL (7-21); CALCIUM 9.9 mg/dL (8.4-10.5); GFR AFRICAN-AMERICAN > 60; GFR NON-AFRICAN AMERICAN > 60
[2017-04-05] MEDS: MethylPREDNISolone 40 mg Vial IVP SCH ×2 (09:49→21:45)
[2017-04-05] MEDS: Metoprolol Succinate 25 mg XL Tab PO SCH (09:50)
[2017-04-05] MEDS: Pantoprazole 40 mg EC Tab PO SCH (09:51)
--- NOTE | 2017-04-05 10:57 | CARD ---
APPROVED REPORT EXAM: Two-dimensional and M-mode echocardiogram with Doppler and color Doppler. Other Information Quality : AverageRhythm : INDICATION Chest Pain 2D DIMENSIONS Left Atrium (2D)4.4 (1.6-4.0cm)IVSd1.2 (0.7-1.1cm) LVDd4.6 (3.9-5.9cm)PWd1.3 (0.7-1.1cm) M-Mode DIMENSIONS Aortic Root3.40 (2.2-3.7cm)Aortic Cusp Exc.1.20 (1.5-2.0cm) Aortic Valve AoV Peak Huirikbv822.0cm/sLVOT Peak Hsklrech76.0cm/sLVOT VTI19.70cm Mitral Valve E/A ratio0.0 TDI E/Lateral E'0.0E/Medial E'0.0 Pulmonary Valve PV Peak Ezbtptcf19.0cm/sPV Peak Grad.2mmHg Tricuspid Valve TR Peak Lkxipjnh497nm/sRAP [id number] Peak Gr.29mmHg [id number] LEFT VENTRICLE The left ventricle is normal size. There is normal left ventricular wall thickness. The left ventricular function is normal. The left ventricular ejection fraction is within the normal range. There is normal LV segmental wall motion. RIGHT VENTRICLE The right ventricle is normal size. ATRIA The left atrium is mildly dilated. The right atrium size is normal. The interatrial septum is intact with no evidence for an atrial septal defect. AORTIC VALVE The aortic valve is mildly calcified. MITRAL VALVE The mitral valve is moderately thickened but opens well. Mitral annular calcification is moderate. Mitral regurgitation is moderate. TRICUSPID VALVE The tricuspid valve is normal in structure. There is mild tricuspid regurgitation. PULMONIC VALVE The pulmonic valve is not well visualized. GREAT VESSELS The aortic root is normal in size. PERICARDIAL EFFUSION There is no pericardial effusion. <Conclusion> The left ventricle is normal size. There is normal left ventricular wall thickness. The left ventricular function is normal. The aortic valve is mildly calcified. Aortic sclerosis. Mitral regurgitation is moderate. There is mild tricuspid regurgitation.
--- NOTE | 2017-04-05 12:44 | PN ---
DATE: SUBJECTIVE: An 86-year-old white female admitted to the hospital with severe left pleuritic-type chest pain. She was found to have pleural effusion, multiple falls, pulmonary nodules and parenchymal nodules. History of GI bleed, history of saddle embolism, history of carotid disease, and history of CVA. The patient is much improved today. Review of the CT shows multiple new and enlarging lesions and pleural effusion. Case will be discussed possible lung biopsy and pleural effusion, and thoracentesis. PHYSICAL EXAMINATION: CHEST: Shows dullness at the left base. ABDOMEN: Benign. EXTREMITIES: Without any cyanosis, clubbing, or edema. HEART: Regular sinus rhythm. IMPRESSION: Possible metastatic versus primary neoplasm on the lung versus infectious nodule disease, pleuritis and pleural effusion. Dylan Dutta MD
[2017-04-05] MEDS ORDERED: Midazolam 2 MG/2 ML VIAL ONE (17:45)
[2017-04-05] MEDS ORDERED: Sodium Chloride 0.45% 1,000 ML IV SCH (18:30)
--- NOTE | 2017-04-05 19:41 | CT ---
PROCEDURE: CT guided right middle lobe lung biopsy. HISTORY: Emphysema. Spiculated 3 cm right middle lobe lung mass. Evaluate for malignancy. PHYSICIAN(S): Wayne Sheppard MD. TECHNIQUE: The relative risks and indications of the procedure were explained to the patient and consent obtained. The patient was placed supine on the CT scanner and preliminary images through the mid lungs obtained. Conscious sedation and monitoring were provided throughout the procedure by a nurse. There is a spiculated 3 cm noncalcified mass the right middle lobe. A satellite 2 cm spiculated mass is also seen in the right middle lobe anteriorly.. A right lateral approach was selected and the area prepped and draped in the usual sterile fashion. 1% Xylocaine was used to anesthetize the skin and soft tissues. A 19 gauge guiding needle was advanced into the 3 cm spiculated mass in the right middle lobe. Its position was confirmed with CT. Using coaxial technique, multiple core biopsies were obtained. The postprocedure images show no evidence of pneumothorax and a small amount of hemorrhage.. IMPRESSION: 1. CT-guided right middle lobe lung biopsy as described above.
[2017-04-05] MEDS: HYDROmorphone 0.5 mg/0.5 ml ISec IVP PRN (20:03)
[2017-04-05] MEDS: guaiFENesin 100 mg/5 ml Syrup UD PO PRN (20:44)
[2017-04-05] MEDS ORDERED: Pantoprazole 40 mg EC Tab PO ONE (20:45)
[2017-04-06 06:31] LABS: HEMOGLOBIN 9.5 g/dL (12.0-16.0); MEAN CELL VOLUME 88.7 fl (80.0-105.0); MEAN CORPUSCULAR HEMOGLOBIN 26.1 pg (25.0-35.0); MEAN CORPUSCULAR HGB CONC 29.4 g/dl (31.0-37.0); MEAN PLATELET VOLUME 10.4 fl (7.0-11.0); RBC 3.64 10^6/uL (3.5-6.1); RED CELL DISTRIBUTION WIDTH 17.7 % (11.5-14.5); WHITE BLOOD COUNT 8.7 10^3/ul (4.5-11.0)
[2017-04-06] MEDS: Pantoprazole 40 mg EC Tab PO SCH (06:32)
[2017-04-06 07:18] LABS: ALB/GLOB RATIO 1.1 (1.1-1.8); ALBUMIN 2.9 g/dL (3.0-4.8); ALT/SGPT 20 U/L (7-56); AST/SGOT 32 U/L (14-36); BLOOD UREA NITROGEN 25 mg/dL (7-21); CALCIUM 9.2 mg/dL (8.4-10.5); GFR AFRICAN-AMERICAN > 60; GFR NON-AFRICAN AMERICAN > 60
[2017-04-06 08:02] VITALS: O2SAT 95
--- NOTE | 2017-04-06 09:08 | RAD ---
HISTORY: rt lung bx COMPARISON: 04/03/2017. FINDINGS: LUNGS: The lungs are well inflated. There is patchy airspace disease in the right mid lung. PLEURA: No significant pleural effusion identified, no pneumothorax apparent. CARDIOVASCULAR: Normal. OSSEOUS STRUCTURES: No significant abnormalities. VISUALIZED UPPER ABDOMEN: Normal. OTHER FINDINGS: None. IMPRESSION: Patchy airspace disease in the right mid lung. No pneumothorax.
[2017-04-06] MEDS: Metoprolol Succinate 25 mg XL Tab PO SCH (09:19)
[2017-04-06] MEDS: MethylPREDNISolone 40 mg Vial IVP SCH ×2 (09:21→21:52)
[2017-04-06] MEDS: guaiFENesin 100 mg/5 ml Syrup UD PO PRN (12:42)
[2017-04-06] MEDS: HYDROmorphone 0.5 mg/0.5 ml ISec IVP PRN (20:50)
[2017-04-07 08:01] VITALS: BP 137/73; RESP 99; TEMP 99
[2017-04-07] MEDS: Pantoprazole 40 mg EC Tab PO SCH (08:42)
[2017-04-07] MEDS: Metoprolol Succinate 25 mg XL Tab PO SCH (09:40)
[2017-04-07] MEDS: MethylPREDNISolone 40 mg Vial IVP SCH (09:41)
[2017-04-07] MEDS ORDERED: Albuterol-Ipratrop 3 mg / 0.5 (3 ml) UD IH STA (12:06)
[2017-04-07] MEDS ORDERED: Sodium Chloride 0.9% 1,000 ML IV SCH (12:15)
[2017-04-07] MEDS ORDERED: cefTRIAXone 1 gm 1 GM/100 ML BAG IVPB SCH (14:00)
[2017-04-07] MEDS: guaiFENesin 100 mg/5 ml Syrup UD PO PRN (15:15)
[2017-04-07 15:44] VITALS: PULSE 108
--- NOTE | 2017-04-08 21:11 | DS ---
DATE OF DISCHARGE: 04/07/2017 DISCHARGE DIAGNOSES: 1. Right middle lobe lung mass. 2. Left-sided chest pain. 3. Hypertension. 4. History of gastrointestinal bleed. 5. History of pulmonary embolism. HOSPITAL COURSE: The patient was admitted with left-sided chest pain. She was found to have right middle lobe mass [address]-guided biopsy by Dr. Wayne Sheppard on 04/05/2017 and pathology is still pending. Pain was managed with Dilaudid and fentanyl patch. She is quite comfortable. She is not ambulating. She will be transferred to Transitional Care Unit for deconditioning and gait improvement. PHYSICAL EXAMINATION: GENERAL: On discharge, comfortable in bed, in no acute distress. VITAL SIGNS: Temperature is 97.8, heart rate is 80 per minute, blood pressure is 140/70, and pulse ox is 98% on room air. HEENT: Normal. NECK: No lymphadenopathy. CHEST: Air entry present and equal bilaterally. No added sounds. CARDIOVASCULAR: S1 and S2 normal. No murmur. No gallop. ABDOMEN: Soft and nontender. No hepatosplenomegaly. EXTREMITIES: No edema. CENTRAL NERVOUS SYSTEM: Alert and oriented x3. No focal sensory or motor deficits. CONDITION ON DISCHARGE: Stable. DISPOSITION: Discharged to Transitional Care Unit. DISCHARGE MEDICATIONS: DuoNeb p.r.n. q.6 hours, Xanax mg p.o. q.8 hours, Cozaar 50 mg daily, Solu-Medrol 20 mg IV q.12 hours, 25 mg daily, Zofran daily, and K-Dur daily. Discussed with the staff nurse. Discussed with the patient. Time spent in preparing discharge and coordinating care 50 minutes. Mia Flores MD
--- NOTE | 2017-04-09 09:34 | PN ---
DATE: 04/06/2017 HISTORY OF PRESENT ILLNESS: Ms. Castañeda is an 86-year-old female admitted to the hospital with left-sided chest pain. She has a history of pulmonary embolism in the past, on Eliquis 5 mg p.o. b.i.d. She was also on Plavix, but because of GI bleed, Eliquis and Plavix were stopped, she is just on aspirin. She had multiple CVAs in the past with residual right upper extremity weakness. She underwent CT-guided biopsy of the right middle lobe lung mass by Dr. Wayne Sheppard, he did on 04/05/2017, tolerated the biopsy well. No respiratory distress, no pneumothorax, and she is accepting orally. PAST MEDICAL HISTORY: Pulmonary embolism, carotid stenosis, dysphagia, and multiple GI bleed in the past. PAST SURGICAL HISTORY: CT-guided lung biopsy. PERSONAL HISTORY: Never smoked. No history of alcohol abuse. HOME MEDICATIONS: Xanax, iron, and Cozaar. REVIEW OF SYSTEMS: As per HPI. Rest of 12-point review of systems reviewed and negative. PHYSICAL EXAMINATION: GENERAL: Comfortable in bed, in no acute distress. VITAL SIGNS: Blood pressure 140/70, heart rate is 95 per minute, respiratory rate 18 per minute, pulse ox is 90% on room air, and temperature is 97.8. HEENT: Normal. Pallor positive. NECK: No lymphadenopathy. CHEST: Air entry present and equal bilaterally. No added sounds. CARDIOVASCULAR: S1 and S2 normal. No murmur. No gallop. ABDOMEN: Soft and nontender. No hepatosplenomegaly. EXTREMITIES: No edema. CENTRAL NERVOUS SYSTEM: Alert and oriented x3. No focal sensory or motor deficits. LABORATORY DATA: White count 8.7, hemoglobin 9.5, hematocrit 32.3, and platelets . Sodium 134, potassium 3.6, chloride 100, creatinine 0.8. and total protein 5.5. LDH 299. MEDICATIONS: Tylenol 650 p.r.n., Xanax 0.25 mg q.8 hours, DuoNeb, fentanyl patch, Dilaudid q.4 hours p.r.n., Solu-Medrol 20 mg q.12 hours, metoprolol 25 mg daily, and Zofran p.r.n. ASSESSMENT: 1. Right middle lobe mass, status post CT-guided biopsy. 2. History of gastrointestinal bleed. 3. History of pulmonary embolism. 4. Hypertension. 5. Anxiety. PLAN: We will continue Xanax. Continue fentanyl patch 100 mcg. Continue bronchodilators. Pain control with current medication. She is currently on Solu-Medrol 20 mg IV q.12 hours and we will continue that. . Protonix 40 mg daily. Discussed with the patient. She is quite comfortable on current pain regimen. Mia Flores MD
--- NOTE | 2017-04-10 09:42 | PQF GENQUE ---
04/10/17 Dr. Flores, Please see pathology report for lung biopsy. Please document whether you agree with finding on path report, as your summary documents "mass" only. Also, pleural effusion is documented--please specify whether this is malignant, if known. Thank you. Clarification of your documentation is requested to better reflect the severity of illness and intensity of treatment of your patient. Indicators present [] Specify: [] pl. send to dr. maya. [] Specify: [] [] Specify: [] [] Specify: [] Location in the medical record that reflects the above clinical findings: [] Treatment Provided: [] PHYSICIAN'S RESPONSE Based on your medical judgment of the clinical indicators outlined above please clarify the following: [] Practitioner response [] If unable to determine, please check the box, sign and date. Present On Admission (POA) Indicator: [] Present at the time of admission [] Not present at the time of admission [] Clinically Undetermined In responding to this query, please exercise your independent professional judgment. The fact that a question is asked does not imply that any particular answer is desired or expected. Thank you for your clarification on this documentation. If you have any questions please call:[ ] * Thank you, [ ] food processing scientist HILDA
--- NOTE | 2017-04-11 09:21 | PQF GENQUE ---
04/11/17 Dr. Dutta, Please see pathology report for lung biopsy. Please document whether you agree with finding on path report, as discharge summary documents "mass" only. Also, pleural effusion is documented--please specify whether this is malignant , if known. (This query is referred to you, per Dr. Flores.) Thank you. Clarification of your documentation is requested to better reflect the severity of illness and intensity of treatment of your patient. Indicators present [] Specify: [] [] Specify: [] [] Specify: [] [] Specify: [] Location in the medical record that reflects the above clinical findings: [] Treatment Provided: [] PHYSICIAN'S RESPONSE Based on your medical judgment of the clinical indicators outlined above please clarify the following: [] Practitioner response [] If unable to determine, please check the box, sign and date. Present On Admission (POA) Indicator: [] Present at the time of admission [] Not present at the time of admission [] Clinically Undetermined In responding to this query, please exercise your independent professional judgment. The fact that a question is asked does not imply that any particular answer is desired or expected. Thank you for your clarification on this documentation. If you have any questions please call:[ ] * Thank you, [ ] information resources director HILDA
== END 2017-04-07 16:18 | DRG 181 ==
LOC: ED 10:56 → ERH 16:16 → 3RNO 17:49 → OBSVTOIN 04-04 14:29 → 3RNO 04-04 17:47
PROVIDERS: ADMIT Internal Medicine; ATTEND Internal Medicine
PROC: BB27ZZZ Computerized Tomography (CT Scan) of Right Tracheobronchial Tree (ICD-10-PCS; 2017-04-05)
PROC: 0BBD3ZX Excision of Right Middle Lung Lobe, Percutaneous Approach, Diagnostic (ICD-10-PCS; principal; 2017-04-05 16:00)
DX: C34.2 Malignant neoplasm of middle lobe, bronchus or lung (principal); I69.351 Hemiplegia and hemiparesis following cerebral infarction affecting right dominant side; D64.9 Anemia, unspecified; J90 Pleural effusion, not elsewhere classified; I10 Essential (primary) hypertension; R07.9 Chest pain, unspecified; F41.9 Anxiety disorder, unspecified; K21.9 Gastro-esophageal reflux disease without esophagitis; K59.00 Constipation, unspecified; J44.9 Chronic obstructive pulmonary disease, unspecified; R29.6 Repeated falls; Z79.01 Long term (current) use of anticoagulants; Z79.899 Other long term (current) drug therapy; Z86.711 Personal history of pulmonary embolism; Z98.42 Cataract extraction status, left eye; Z98.41 Cataract extraction status, right eye; R32 Unspecified urinary incontinence; Z79.82 Long term (current) use of aspirin; I08.1 Rheumatic disorders of both mitral and tricuspid valves

== ENCOUNTER 2017-04-07 16:40 | Inpatient (IN) | payer OTHER, BC ==
[2017-04-07 17:18] VITALS: BMI 19.5
[2017-04-07] MEDS: Sodium Chloride 0.9% 1,000 ML IV SCH (18:20)
[2017-04-07] MEDS: MethylPREDNISolone 40 mg Vial IVP SCH (21:31)
[2017-04-07] MEDS: guaiFENesin 100 mg/5 ml Syrup UD PO PRN (21:35)
[2017-04-07] MEDS ORDERED: Pneumococcal 23-Valent Vaccine IM ONE (23:03)
[2017-04-07] MEDS ORDERED: Influenza Vaccine 60 mcg/0.5 mL SYR (4YR UP) IM ONE (23:03)
[2017-04-08] MEDS: cefTRIAXone 1 gm 1 GM/100 ML BAG IVPB SCH (05:21)
[2017-04-08] MEDS: Sodium Chloride 0.9% 1,000 ML IV SCH ×3 (05:22→23:38)
[2017-04-08] MEDS: Pantoprazole 20 mg EC Tab PO SCH (05:24)
[2017-04-08] MEDS: Metoprolol Succinate 25 mg XL Tab PO SCH (08:21)
[2017-04-08] MEDS: MethylPREDNISolone 40 mg Vial IVP SCH ×2 (11:00→21:39)
[2017-04-08] MEDS: guaiFENesin 100 mg/5 ml Syrup UD PO PRN ×2 (11:02→20:17)
[2017-04-09] MEDS: HYDROmorphone 0.5 mg/0.5 ml ISec IVP PRN (02:01)
[2017-04-09] MEDS: guaiFENesin 100 mg/5 ml Syrup UD PO PRN (02:05)
[2017-04-09] MEDS: Sodium Chloride 0.9% 1,000 ML IV SCH ×2 (03:21→18:39)
[2017-04-09] MEDS: cefTRIAXone 1 gm 1 GM/100 ML BAG IVPB SCH (05:22)
[2017-04-09] MEDS: Pantoprazole 20 mg EC Tab PO SCH (05:22)
[2017-04-09] MEDS: Metoprolol Succinate 25 mg XL Tab PO SCH (08:31)
[2017-04-09 10:42] LABS: BASO # 0.01 K/mm3 (0.0-2.0); BASO % 0.2 % (0.0-3.0); GRAN # 4.53 (1.4-6.5); GRAN % 71.7 % (50.0-68.0); LYMPH # 0.6 (1.2-3.4); LYMPH % 9.7 % (22.0-35.0); MEAN CELL VOLUME 89.7 fl (80.0-105.0); MEAN CORPUSCULAR HEMOGLOBIN 25.8 pg (25.0-35.0); MEAN CORPUSCULAR HGB CONC 28.8 g/dl (31.0-37.0); MEAN PLATELET VOLUME 10.7 fl (7.0-11.0); MONO # 1.2 (0.1-0.6); MONO % 18.4 % (1.0-6.0); RBC 3.87 10^6/uL (3.5-6.1); RED CELL DISTRIBUTION WIDTH 17.6 % (11.5-14.5); WHITE BLOOD COUNT 6.3 10^3/ul (4.5-11.0)
--- NOTE | 2017-04-09 12:06 | PN ---
DATE: SUBJECTIVE: The patient is an 86-year-old white female status post lung biopsy, status post pleuritis, history of saddle embolism, history of bilateral carotid stenosis, status post left carotid endarterectomy, history of multiple CVA with residual right upper and right lower extremity weakness and also expressive aphasia. The patient is weak appearing and frail. PHYSICAL EXAMINATION: VITAL SIGNS: Stable with blood pressure at 156/76, the patient is afebrile, and temperature 98.9. CHEST: Clear to auscultation. HEART: Reveals sinus rhythm. ASSESSMENT AND PLAN: Plan is to continue physical and occupational therapy, check biopsies of lung, and continue to recheck her H and H and her stool for blood. The patient has minimal discomfort. She is comfortable, but weak and frail. Dylan Dutta MD
[2017-04-09] MEDS: Cefpodoxime (Vantin) 200 mg Tab PO SCH (21:39)
[2017-04-10] MEDS: HYDROmorphone 0.5 mg/0.5 ml ISec IVP PRN ×2 (01:29→23:36)
[2017-04-10] MEDS: guaiFENesin 100 mg/5 ml Syrup UD PO PRN ×2 (04:59→21:48)
[2017-04-10] MEDS: Pantoprazole 20 mg EC Tab PO SCH (04:59)
[2017-04-10] MEDS ORDERED: Albuterol-Ipratrop 3 mg / 0.5 (3 ml) UD IH STA ×2 (05:19→06:16)
--- NOTE | 2017-04-10 05:19 | CP.PCM.PN ---
Subjective - Date & Time of Evaluation Date of Evaluation: 04/10/17 Time of Evaluation: 05:17 - Subjective Subjective: Pulse ox 83 % on 2L/min. 86% on 3L/min. Received duoneb treatment in past for hypoxia. Rx, Duoneb neb treatment stat. Evaluate patient prn. 06:18 Pulse ox still low. 82 % on 4L/min. Patient seen. C/o sob. No other complaints. 86 year old woman was admitted weakness and sob. Has PMH of HTN, carotid stenosis, saddle embolism, GI bleeding,TIA, CVA,PE,A V malformation. Objective - Vital Signs/Intake and Output Vital Signs (last 24 hours): Temp Pulse Resp BP Pulse Ox 98 F 82 20 168/76 H 92 L 04/09/17 16:00 04/09/17 16:00 04/09/17 16:00 04/09/17 16:00 04/09/17 16:00 - Medications Medications: Current Medications Acetaminophen (Tylenol 325mg Tab) 650 mg PO Q4H PRN; Protocol PRN Reason: Fever >100.4 F Last Admin: 04/09/17 17:05 Dose: 650 mg Alprazolam (Xanax) 0.25 mg PO Q8 PRN; Protocol PRN Reason: Agitation Stop: 04/14/17 22:01 Last Admin: 04/09/17 23:28 Dose: 0.25 mg Benzonatate (Tessalon Perles) 100 mg PO TID [facility] Last Admin: 04/09/17 17:09 Dose: Not Given Cefpodoxime Proxetil (Vantin) 200 mg PO Q12 [facility] Last Admin: 04/09/17 21:39 Dose: 200 mg Ferrous Sulfate (Feosol) 324 mg PO DAILY [facility] PRN Reason: Protocol Last Admin: 04/09/17 11:06 Dose: 324 mg Guaifenesin (Robitussin) 100 mg PO Q4H PRN; Protocol PRN Reason: Cough Last Admin: 04/10/17 04:59 Dose: 100 mg Hydromorphone HCl (Dilaudid) 0.5 mg IVP Q4H PRN; Protocol PRN Reason: Pain, moderate (4-7) Last Admin: 04/10/17 01:29 Dose: 0.5 mg Sodium Chloride (Sodium Chloride 0.9%) 1,000 mls @ 60 mls/hr IV .[id number] KEVIN PRN Reason: Protocol Last Admin: 04/09/17 18:39 Dose: 60 mls/hr Losartan Potassium (Cozaar) 50 mg PO DAILY KEVIN PRN Reason: Protocol Last Admin: 04/09/17 11:06 Dose: 50 mg Metoprolol Succinate (Toprol Xl) 25 mg PO BRK KEVIN PRN Reason: Protocol Last Admin: 04/09/17 08:31 Dose: 25 mg Ondansetron HCl (Zofran Inj) 4 mg IVP Q6H PRN; Protocol PRN Reason: Nausea/Vomiting Stop: 04/13/17 13:17 Last Admin: 04/09/17 12:30 Dose: 4 mg Pantoprazole Sodium (Protonix Ec Tab) 20 mg PO 0600 [facility] PRN Reason: Protocol Last Admin: 04/10/17 04:59 Dose: 20 mg - Labs Labs: 04/09/17 10:30 - Constitutional Appears: Well, No Acute Distress - Head Exam Head Exam: ATRAUMATIC, NORMAL INSPECTION, NORMOCEPHALIC - Eye Exam Eye Exam: Normal appearance - ENT Exam ENT Exam: Mucous Membranes Dry - Neck Exam Neck Exam: Normal Inspection - Respiratory Exam Respiratory Exam: Decreased Breath Sounds (Right side.), NORMAL BREATHING PATTERN - Cardiovascular Exam Cardiovascular Exam: absent: JVD - GI/Abdominal Exam GI & Abdominal Exam: absent: Distended - Rectal Exam Rectal Exam: Deferred - Exam Additional comments: Deferred. - Extremities Exam Extremities Exam: Normal Inspection - Back Exam Back Exam: NORMAL INSPECTION - Neurological Exam Neurological Exam: Alert, Oriented x3 - Psychiatric Exam Psychiatric exam: Normal Affect, Normal Mood - Skin Skin Exam: Normal Color Assessment and Plan - Assessment and Plan (Free Text) Assessment: Dyspnea. Hypoxia. HTN. Hx AV malformation. Hx TIA. Hx PE Hx Carotid stenosis. Plan: CXR (P) Solumedrol 40 IV Lasix 40 IV Repeat duoneb treatment. Continue present management as per PMD.
[2017-04-10] MEDS ORDERED: Albuterol-Ipratrop 3 mg / 0.5 (3 ml) UD ONE (06:15)
[2017-04-10] MEDS ORDERED: MethylPREDNISolone 40 mg Vial IVP STA (06:17)
[2017-04-10] MEDS: Metoprolol Succinate 25 mg XL Tab PO SCH (08:36)
--- NOTE | 2017-04-10 09:10 | RAD ---
HISTORY: hypoxia COMPARISON: 04/05/2017 FINDINGS: LUNGS: No pulmonary infiltrate. PLEURA: Minimal blunting of the costophrenic angles may reflect very small pleural effusions. No pneumothorax. CARDIOVASCULAR: Normal. OSSEOUS STRUCTURES: No significant abnormalities. VISUALIZED UPPER ABDOMEN: Normal. OTHER FINDINGS: None. IMPRESSION: Possible very small bilateral pleural effusion. No acute infiltrate.
--- NOTE | 2017-04-10 10:07 | PN ---
DATE: SUBJECTIVE: An 86-year-old white female, recently found to have adenocarcinoma of the lung on biopsy, pleural effusion, history of saddle embolism in the past, history of CVA, GI bleed multiple times, status post transfusions. The patient is stable. She did have an episode of desaturation today with some hypoxia which responded to oxygen, some Lasix, some nebulizer treatment, and some steroids. The patient is comfortable at this point. The diagnosis was related to the patient by her lung cancer. We will attempt PET scan as an outpatient. PHYSICAL EXAMINATION: VITAL SIGNS: Stable. CHEST: Shows decreased breath sounds and rhonchi bilaterally, but otherwise clear. She is afebrile. Tolerating her diet well. Continue physical therapy. Dylan Dutta MD
[2017-04-10] MEDS: Cefpodoxime (Vantin) 200 mg Tab PO SCH ×2 (10:08→21:47)
[2017-04-10] MEDS: Sodium Chloride 0.9% 1,000 ML IV SCH (13:50)
--- NOTE | 2017-04-10 22:48 | CP.PCM.PCO ---
Assessment & Plan - Assessment and Plan (Free Text) Assessment: I will discuss with family the diagnosis and treatment options. possible palliative radiation, PET scan upon discharge.
[2017-04-11] MEDS: Sodium Chloride 0.9% 1,000 ML IV SCH ×2 (05:44→22:03)
[2017-04-11] MEDS: Pantoprazole 20 mg EC Tab PO SCH (05:44)
[2017-04-11] MEDS: Metoprolol Succinate 25 mg XL Tab PO SCH (08:05)
--- NOTE | 2017-04-11 09:58 | PN ---
DATE: SUBJECTIVE: An 86-year-old white female. H and H was stable at 10 and 34.7. PHYSICAL EXAMINATION: VITAL SIGNS: Blood pressure is 161/78. The patient is afebrile. CHEST: She does have some rhonchi and rales in all lung [place]. LABORATORY DATA: CT showed emphysema and a right satellite mass biopsy proven, adenocarcinoma well differentiated. This is the lung CA. The patient has had some other satellite nodules, possible CA. Plan is to get a PET scan. The patient can continue physical therapy and occupational therapy, and eventually have evaluation by Oncology. Dylan Dutta MD
[2017-04-11] MEDS: Cefpodoxime (Vantin) 200 mg Tab PO SCH ×2 (10:09→22:03)
[2017-04-12] MEDS: Pantoprazole 20 mg EC Tab PO SCH (06:03)
[2017-04-12] MEDS: Metoprolol Succinate 25 mg XL Tab PO SCH (08:09)
[2017-04-12] MEDS: POLYETHYLENE GLYCOL 3350 17 GM/Dose PACKET PO SCH ×2 (09:51→18:00)
[2017-04-12] MEDS: Cefpodoxime (Vantin) 200 mg Tab PO SCH ×2 (09:52→21:05)
[2017-04-12] MEDS: guaiFENesin 100 mg/5 ml Syrup UD PO PRN (09:52)
--- NOTE | 2017-04-12 11:06 | PN ---
DATE: SUBJECTIVE: An 86-year-old white female, admitted to the hospital after transfusion for severe GI bleed, was found to have a spiculated mass in the right lung that was found to be adenocarcinoma well differentiated. PHYSICAL EXAMINATION: VITAL SIGNS: Stable. CHEST: Decreased breath sounds bilaterally with some rhonchi in the right apex. HEART: Regular sinus rhythm. EXTREMITIES: No cyanosis, clubbing or edema. The patient is planned for continued physical therapy, occupational therapy, and PET scan. Consultation with Dr. Flores is appreciated. The patient's family just want a second opinion. She had advised a PET scan, which we are attempting to and also possible radiation for palliative treatment of her lung cancer. Dylan Dutta MD
[2017-04-12] MEDS ORDERED: Albuterol-Ipratrop 3 mg / 0.5 (3 ml) UD IH PRN (14:47)
[2017-04-12] MEDS: Albuterol-Ipratrop 3 mg / 0.5 (3 ml) UD IH SCH (20:37)
[2017-04-13] MEDS: Albuterol-Ipratrop 3 mg / 0.5 (3 ml) UD IH SCH ×4 (01:31→21:26)
--- NOTE | 2017-04-13 01:44 | CP.PCM.PN ---
Subjective - Date & Time of Evaluation Date of Evaluation: 04/12/17 Time of Evaluation: 12:00 - Subjective Subjective: Complaining of shortness of breath. Objective - Vital Signs/Intake and Output Vital Signs (last 24 hours): Temp Pulse Resp BP Pulse Ox 98.4 F 87 20 176/75 H 90 L 04/12/17 18:02 04/12/17 18:02 04/12/17 18:02 04/12/17 18:02 04/12/17 18:02 - Medications Medications: Current Medications Acetaminophen (Tylenol 325mg Tab) 650 mg PO Q4H PRN; Protocol PRN Reason: Fever >100.4 F Last Admin: 04/12/17 21:04 Dose: 650 mg Albuterol/Ipratropium (Duoneb 3 Mg/0.5 Mg (3 Ml) Ud) 3 ml IH [id number] KEVIN PRN Reason: Protocol Last Admin: 04/13/17 01:31 Dose: 3 ml Albuterol/Ipratropium (Duoneb 3 Mg/0.5 Mg (3 Ml) Ud) 3 ml IH [id number] PRN; Protocol PRN Reason: Shortness of Breath Last Admin: 04/12/17 14:55 Dose: 3 ml Alprazolam (Xanax) 0.25 mg PO Q8 PRN; Protocol PRN Reason: Agitation Stop: 04/14/17 22:01 Last Admin: 04/11/17 18:58 Dose: 0.25 mg Benzonatate (Tessalon Perles) 100 mg PO TID [facility] Last Admin: 04/12/17 18:01 Dose: 100 mg Cefpodoxime Proxetil (Vantin) 200 mg PO Q12 [facility] Last Admin: 04/12/17 21:05 Dose: 200 mg Ferrous Sulfate (Feosol) 324 mg PO DAILY [facility] PRN Reason: Protocol Last Admin: 04/12/17 09:51 Dose: 324 mg Guaifenesin (Robitussin) 100 mg PO Q4H PRN; Protocol PRN Reason: Cough Last Admin: 04/12/17 09:52 Dose: 100 mg Losartan Potassium (Cozaar) 50 mg PO DAILY [facility] PRN Reason: Protocol Last Admin: 04/12/17 09:51 Dose: 50 mg Metoprolol Succinate (Toprol Xl) 25 mg PO BRK [facility] PRN Reason: Protocol Last Admin: 04/12/17 08:09 Dose: 25 mg Ondansetron HCl (Zofran Inj) 4 mg IVP Q6H PRN; Protocol PRN Reason: Nausea/Vomiting Stop: 04/13/17 13:17 Last Admin: 04/09/17 12:30 Dose: 4 mg Pantoprazole Sodium (Protonix Ec Tab) 20 mg PO 0600 [facility] PRN Reason: Protocol Last Admin: 04/12/17 06:03 Dose: 20 mg Polyethylene Glycol (Miralax) 17 gm PO BID [facility] Last Admin: 04/12/17 18:00 Dose: 17 gm - Labs Labs: 04/09/17 10:30 Assessment and Plan - Assessment and Plan (Free Text) Assessment: Spoke to sister Aydee Braun. PET scan scheduled for next Sunday. Discussed with her that further treatment will be planned after PET scan based on extend of disease. She agreed with plan. Will continue supportive treatment .
[2017-04-13] MEDS: Pantoprazole 20 mg EC Tab PO SCH (05:33)
[2017-04-13] MEDS: Metoprolol Succinate 25 mg XL Tab PO SCH (09:00)
[2017-04-13] MEDS: POLYETHYLENE GLYCOL 3350 17 GM/Dose PACKET PO SCH ×2 (10:44→18:11)
[2017-04-13] MEDS: Cefpodoxime (Vantin) 200 mg Tab PO SCH ×2 (10:45→21:07)
--- NOTE | 2017-04-13 12:13 | PN ---
DATE: SUBJECTIVE: An 86-year-old white female admitted to the hospital with cough, sputum production, and shortness of breath who was found to have a spiculated lesion in the right lung, biopsy-proven adenocarcinoma, and multiple other nodules. Pending PET scan. Etiology is uncertain. The patient also has a history of multiple GI bleeds. She has been stable. Hemoglobin is 10.0. PHYSICAL EXAMINATION VITAL SIGNS: Blood pressure is 176/75 and temperature 98.4. The patient is off aspirin, off Plavix. She is status post left carotid endarterectomy, history of CVA, history of recurrent residual, right upper and right lower hemiparesis, history of saddle embolism in the past. PLAN: Is to transfer to subacute. The patient continues to desaturate due to chronic lung disease and pleural effusion. The patient will be followed as an outpatient, have PET scan as an outpatient and follow with Heme/Onc as an outpatient. Dylan Dutta MD
[2017-04-14] MEDS: Albuterol-Ipratrop 3 mg / 0.5 (3 ml) UD IH SCH ×4 (01:33→19:56)
[2017-04-14] MEDS: Pantoprazole 20 mg EC Tab PO SCH (05:37)
[2017-04-14] MEDS: Metoprolol Succinate 25 mg XL Tab PO SCH (08:22)
[2017-04-14] MEDS: POLYETHYLENE GLYCOL 3350 17 GM/Dose PACKET PO SCH ×2 (10:45→17:17)
[2017-04-14] MEDS: Cefpodoxime (Vantin) 200 mg Tab PO SCH ×2 (10:46→21:25)
--- NOTE | 2017-04-14 13:40 | PN ---
DATE: SUBJECTIVE: An 86-year-old white female admitted to the hospital with weakness and shortness of breath, and was found to have a spiculated lesion in the right lung consistent with adenocarcinoma on biopsy some pulmonary nodules besides. The patient has a history of chronic GI bleeding, so off of anticoagulants and blood thinners at this point. Her hemoglobin is stable. PHYSICAL EXAMINATION: VITAL SIGNS: She does have a low grade temperature of 99.7, blood pressure 153/78. ASSESSMENT AND PLAN: The patient is being transferred to tomorrow to continue physical therapy, and she also will be seen by Dr. Flores from Oncology, recommending possible radiation therapy after a PET scan proved that she lung. Physical examination is unchanged. The patient is continuing doing physical therapy. Dylan Dutta MD
[2017-04-14 16:49] VITALS: RESP 18; TEMP 98.4; O2SAT 93
[2017-04-15] MEDS: Albuterol-Ipratrop 3 mg / 0.5 (3 ml) UD IH SCH ×3 (03:05→13:28)
[2017-04-15] MEDS: Pantoprazole 20 mg EC Tab PO SCH (06:48)
[2017-04-15] MEDS: Metoprolol Succinate 25 mg XL Tab PO SCH (08:13)
[2017-04-15 08:17] VITALS: PULSE 103
[2017-04-15] MEDS: POLYETHYLENE GLYCOL 3350 17 GM/Dose PACKET PO SCH (10:13)
[2017-04-15] MEDS: Cefpodoxime (Vantin) 200 mg Tab PO SCH (10:13)
[2017-04-15 10:22] VITALS: BP 160/75
[2017-04-15] MEDS ORDERED: Oxycodone/Acetaminophen 5/325 mg Tab PO STA (10:25)
[2017-04-15] MEDS ORDERED: Oxycodone/Acetaminophen 5/325 mg Tab PO PRN (12:03)
--- NOTE | 2017-04-15 13:21 | PN ---
DATE: SUBJECTIVE: An 86-year-old white female with lung cancer, pleural effusion, history of CVA, history of carotid stenosis, history of endarterectomy, history of saddle embolism. The patient is being transferred to [facility] today. She will have PET scan at the end of the week. Plan is to continue bronchodilators. She is to finish a course of IV antibiotics. She pruritus and left pleural effusion. She was hypertensive and was on medications and is off anticoagulation because of her history of chronic GI bleeding. Physical examination is unchanged. Chest shows decreased breath sounds with some pain in her left lower lobe. Plan is to continue with transfer to [facility] and continue workup for her adenocarcinoma of the right lung. Dylan Dutta MD
== END 2017-04-15 14:19 | DRG 181 ==
LOC: TRCU 16:40
PROVIDERS: ADMIT Internal Medicine; ATTEND Internal Medicine
PROC: F07Z9FZ Gait Training/Functional Ambulation Treatment using Assistive, Adaptive, Supportive or Protective Equipment (ICD-10-PCS; principal; 2017-04-09)
PROC: F07Z5FZ Bed Mobility Treatment using Assistive, Adaptive, Supportive or Protective Equipment (ICD-10-PCS; 2017-04-09)
PROC: F07Z8FZ Transfer Training Treatment using Assistive, Adaptive, Supportive or Protective Equipment (ICD-10-PCS; 2017-04-09)
PROC: F07L6ZZ Therapeutic Exercise Treatment of Musculoskeletal System - Lower Back / Lower Extremity (ICD-10-PCS; 2017-04-11)
DX: C34.91 Malignant neoplasm of unspecified part of right bronchus or lung (principal); J90 Pleural effusion, not elsewhere classified; I69.351 Hemiplegia and hemiparesis following cerebral infarction affecting right dominant side; I69.320 Aphasia following cerebral infarction; R54 Age-related physical debility; I65.23 Occlusion and stenosis of bilateral carotid arteries; Z86.711 Personal history of pulmonary embolism; I10 Essential (primary) hypertension; R09.02 Hypoxemia